=== PATIENT | male | born 1965 | race American Indian/Alaskan Native ===

== ENCOUNTER 2021-09-30 12:26 | Emergency (ER) | payer BC, SELFPAY ==
--- NOTE | 2021-09-30 13:30 | PC.NURSE ---
called X2 for triage at this time
== END 2021-09-30 21:24 | disposition left against medical advice (07) ==
PROVIDERS: Emergency Provider Emergency Medicine; PCP Physician Assistant
DX: R10.9 Unspecified abdominal pain (principal)

== ENCOUNTER 2021-12-10 16:07 | Emergency (ER) | payer BC, SELFPAY | END 2021-12-10 17:31 | disposition left against medical advice (07) | PROVIDERS: Emergency Provider Emergency Medicine | DX: M79.602 Pain in left arm (principal) ==

== ENCOUNTER 2022-01-22 20:05 | Emergency (ER) | payer BC, SELFPAY ==
[2022-01-22 20:07] VITALS: BP 116/75; PULSE 98; RESP 18; TEMP 36.6; O2SAT 95; BMI 24.7
== END 2022-01-23 00:04 | disposition left against medical advice (07) ==
PROVIDERS: Emergency Provider Emergency Medicine
DX: S51.851A Open bite of right forearm, initial encounter (principal); W54.0XXA Bitten by dog, initial encounter; Y93.9 Activity, unspecified; Y92.480 Sidewalk as the place of occurrence of the external cause; Y99.9 Unspecified external cause status
CPT/HCPCS: 99281

== ENCOUNTER 2022-01-23 10:46 | Emergency (ER) | payer BC, SELFPAY ==
[2022-01-23 11:19] VITALS: BP 118/79; PULSE 76; RESP 16; TEMP 36.3; O2SAT 98; BMI 24.7
--- NOTE | 2022-01-23 12:11 | ED_ITS ---
HPI - General Adult General Chief complaint: Animal Bite Stated complaint: dog bite Time Seen by Provider: 01/23/22 12:11 Source: patient Mode of arrival: ambulatory Limitations: no limitations History of Present Illness HPI narrative: Patient is a 56 year old male presenting to the emergency department today with a dog bite to his right forearm. Patient states that he was bit by his neighbors dog yesterday and doesn't know if the dog is up to date on his shots or not. States that he does not know when his last tetanus shot was. Patient denies any dizziness, lightheadedness, abdominal pain, nausea, vomiting, fever, chills, blurry vision, double vision, loss of vision, chest pain, difficulty breathing, shortness of breath, back pain, night sweats, pain with urination, increased urinary frequency, increased urinary urgency, blood in his urine or stool, syncope or a near syncopal episode, bowel incontinence, bladder incontinence, bowel retention, bladder retention, or any other complaints at this time. Onset (ago): day(s) (1) Location: right and upper extremity Radiation: non-radiation Severity: mild Severity scale (1-10): 1 Quality: dull Pain Consistency: constant Relieving factors: none Exacerbating factors: none Associated symptoms: denies other symptoms Treatments prior to arrival: none Related Data Previous Rx's Medication Instructions Recorded amoxicillin 875 mg-potassium 1 tab PO BID 7 days #14 tabs 01/23/22 clavulanate 125 mg tablet Allergies Allergy/AdvReac Type Severity Reaction Status Date / Time No Known Allergies Allergy Verified 01/22/22 20:07 [No Known Allergies*] Review of Systems Constitutional: Constitutional: Reports no additional constitutional complaints, Denies chills, Denies fever(s) and Denies night sweats Eyes: Eyes: Reports no additional eye complaints, Denies blurry vision, Denies change in vision, Denies diplopia, Denies eye discharge, Denies loss of vision and Denies eye pain ENT: Denies dizziness Cardiovascular: Cardiovascular: Reports no additional cardiovascular complaints, Denies chest pain, Denies lightheadedness, Denies Loss of Consciousness and Denies dyspnea Respiratory: Respiratory: Reports no additional respiratory complaints and Denies dyspnea Gastrointestinal: Gastrointestinal: Reports no additional gastrointestinal complaints, Denies abdominal pain, Denies melena, Denies hematochezia, Denies change in bowel habits and Denies change in stool character Genitourinary: Genitourinary: Reports no additional male genitourinary complaints, Denies hematuria, Denies oliguria, Denies difficulty urinating, Denies dysuria, Denies urinary frequency, Denies urinary hesitancy, Denies urinary incontinence and Denies urinary urgency Musculoskeletal: Musculoskeletal: Reports no additional musculoskeletal complaints, Denies numbness and Denies tingling Integumentary/Breasts: Comments: right forearm abrasion, no active bleeding Neurologic: Denies dizziness, Denies loss of vision, Denies numbness and Denies tingling Psychiatric: Psychiatric: Reports no additional psychiatric complaints Endocrine: Endocrine: Reports no additional endocrine complaints Hematologic/Lymphatic: Hematologic/Lymphatic: Reports no additional hematologic/lymphatic complaints Allergic/Immunologic: Allergic/Immunologic: Reports no additional allergic/immunologic complaints PMFSH Past Medical History Attestation statement: The following information was validated with the patient. Source: old records reviewed Social History Social History Advance Directives: Yes Advance Directives Information Provided: Yes Advance Directives on File: No Physical Exam ED Vital Signs: Vital Signs - 24 hr 01/23/22 11:19 Temperature 97.4 F Pulse Rate 76 Respiratory Rate 16 Blood Pressure 118/79 Pulse Oximetry 98 Oxygen Delivery Method Room Air BMI result Body Mass Index 24.7 Const General: cooperative, no acute distress, alert and awake Nutritional Appearance: well nourished Orientation/consciousness: patient oriented x3 Limitations: no limitations [facility] Head: Yes normal to inspection and Yes atraumatic Ears: hearing grossly normal bilaterally and external ears normal General nose exam: Normal external nose present, no nasal discharge noted and no epistaxis Face and sinus: Yes normal facial exam, No abrasion and No laceration Mouth: Normal oral and palatal mucosa present, no drooling and no muffled voice Eyes General: appearance normal, both eyes and all related structures Periorbital: periorbital findings normal Eyelids: Yes eyelids normal Conjunctivae: conjunctivae normal Pupils: Equal, round and reactive pupils present EOM: EOMs intact bilaterally Neck Neck: Yes normal visual inspection, Yes full ROM and Yes no lymphadenopathy Chest Chest palpation & inspection: normal inspection of the chest Resp Effort & Inspection: normal respiratory effort and able to speak in complete sentences Auscultation: clear to auscultation bilaterally Cardio Rate: regular rate Rhythm: regular rhythm GI Inspection: Yes normal to inspection Skin Other: small abrasions to the right dorsal forearm, no active bleeding, no gaping areas Neuro General: patient oriented x3 and moves all extremities Cranial nerves: Yes Equal, round and reactive pupils present Cognition (Neuro): normal cognition Motor exam (neuro): 5/5 motor strength present throughout Sensory Exam: Normal double simultaneous stimulation for sensation Coordination: [id number] test normal Extrem General: Yes full ROM and Yes capillary refill normal Psych Appearance: grossly normal Mental Status: mental status grossly normal Affect: normal affect Attitude: cooperative Thought process: Normal thought process present Thought content: Normal thought content present Insight: Good insight present (Psych) Medical Decision Making MDM Narrative Medical decision making narrative: Patient is a 56 year old male presenting to the emergency department today with a dog bite to the right forearm. Patient's physical exam showed a few abrasions to the right dorsal forearm with no active bleeding or gaping areas. I explained my physical exam findings to the patient. I answered all questions asked by the patient. Patient received a tetanus booster, rabies vaccination, and rabies immungloblin. I stressed the importance of the patient taking his medication as prescribed. I stressed the importance of the patient following up with his [facility] care provider. I stressed the importance of the patient returning to the emergency department immediately if his symptoms were to worsen or if he were to develop any dizziness, shortness of breath, difficulty breathing, chest pain, blurry vision, loss of vision, nausea, vomiting, abdominal pain, fever, chills, back pain, or any other complaints. Patient verbalized agreement and understanding with this treatment plan and discharge. Differential Diagnosis Differential Diagnosis: dog bite Medical Records Medical records reviewed: Yes I reviewed the patient's medical records. Discharge Plan Discharge Clinical Impression: Dog bite Patient Disposition: Home, Self-Care Instructions: Animal Bite (ED) Additional Instructions: Complete your rabies vaccination series as directed. Follow up with your primary care provider. Return to the emergency department immediately if your symptoms worsen or if you develop any dizziness, shortness of breath, difficulty breathing, chest pain, blurry vision, loss of vision, nausea, vomiting, abdominal pain, fever, chills, back pain, or any other complaints. Prescriptions: New amoxicillin-pot clavulanate 875-125 mg tablet 1 tab PO BID 7 Days Qty: 14 0RF Referrals: [facility] [place] [facility] [Provider Group] (Call to establish and follow up with a primary care provider. If you have a primary care provider, please call and follow up with them. ) [facility] [place] Primary Care, Joelle [Provider Group] (Call to establish and follow up with a primary care provider. If you have a primary care provider, please call and follow up with them. ) [facility] [place] Primary Care,Rose [Provider Group] (Call to establish and follow up with a primary care provider. If you have a primary care provider, please call and follow up with them. ) Stand Alone Forms: Work/School Release Print Language: Portuguese
[2022-01-23] MEDS: Diphth,Pertus(ACell),Tet Adult 0.5 ML SYRINGE IM (12:52)
[2022-01-23] MEDS: Rabies Vaccine (PCEC)/PF 1 ML VIAL IM (12:55)
[2022-01-23] MEDS: Rabies Immune Globulin/PF 900 UNIT/3 ML VIAL 1524.08 UNIT IM (12:59)
== END 2022-01-23 13:22 | disposition home or self-care (01) ==
PROVIDERS: Emergency Provider Emergency Medicine
DX: S50.871A Other superficial bite of right forearm, initial encounter (principal); S50.811A Abrasion of right forearm, initial encounter; M79.631 Pain in right forearm; W54.0XXA Bitten by dog, initial encounter; Y93.9 Activity, unspecified; Y92.9 Unspecified place or not applicable; Y99.9 Unspecified external cause status; Z20.3 Contact with and (suspected) exposure to rabies; Z29.14 Encounter for prophylactic rabies immune globulin; Z79.899 Other long term (current) drug therapy
CPT/HCPCS: 90375; 90471; 90472; 90675; 90715; 96372; 99283; 99284

== ENCOUNTER 2022-06-05 08:34 | Outpatient (REF) | payer BC, SELFPAY ==
[2022-06-05 09:17] LABS: Appearance Urine Clear; Color Urine Yellow; Glucose Urine UA Negative (Negative); Leukocyte Esterase Urine Negative (Negative); Nitrite Urine Negative (Negative); Specific Gravity - Urine 1.025 (1.005-1.025); UMIC TRIGGER UACC YES; Urine Blood Small (1+) (Negative); Urine Ketones Negative (Negative); Urine Protein Negative (Neg-Trace)
[2022-06-05 09:20] LABS: Bacteria Urine None Seen (None Seen); Hyaline Casts Urine 0-2 /LPF (0-2); Squamous Epithelial Cell Urine 0-2 /HPF (0-2); WBC Urine 0-5 /HPF (0-5)
[2022-06-05 10:12] LABS: Alanine Aminotransferase 22 U/L (0-40); Albumin Level 4.5 g/dL (3.5-5.0); Alkaline Phosphatase 64 U/L (39-117); Anion Gap 12 (12-20); Aspartate Amino Transferase 20 U/L (5-37); Bilirubin Total 0.3 mg/dL (0.0-1.0); Blood Urea Nitrogen 24 mg/dL (9-16); Calcium 9.2 mg/dL (8.4-10.2); Carbon Dioxide 26 mmol/L (22-29); Chloride 109 mmol/L (96-108); Cholesterol 174 mg/dL; Estimated Glomerular Filt Rate > 60; Glucose Fasting 106 mg/dL (60-99); HDL Cholesterol 60 mg/dL; LDL Cholesterol Calculated 107 mg/dl; Potassium 4.8 mmol/L (3.3-5.1); Prostate Specific Antigen Scr 2.35 ng/mL (<0.05-4.0); Sodium 142 mmol/L (135-145); TSH reflex Free T4 1.53 uIU/mL (0.32-4.0); Total Protein 7.5 g/dL (6.5-8.0); Triglycerides 36 mg/dL
== END 2022-06-05 08:35 | disposition home or self-care (01) ==
LOC: HO.LAB 08:34
PROVIDERS: PCP Physician Assistant; Visit Provider Physician Assistant
DX: R30.0 Dysuria (principal); N20.0 Calculus of kidney; Z13.1 Encounter for screening for diabetes mellitus; Z13.220 Encounter for screening for lipoid disorders; Z12.5 Encounter for screening for malignant neoplasm of prostate; Z13.29 Encounter for screening for other suspected endocrine disorder
CPT/HCPCS: 36415; 80053; 80061; 81001; 84153; 84443

== ENCOUNTER 2022-09-22 15:00 | Outpatient (REF) | payer BC, SELFPAY ==
[2022-09-22 16:25] LABS: Urine Cytology See Pathology rpt
== END 2022-09-22 15:01 | disposition home or self-care (01) ==
LOC: HO.LAB 15:00
PROVIDERS: PCP Physician Assistant; Visit Provider Nurse Practitioner Family
DX: R31.29 Other microscopic hematuria (principal); N20.0 Calculus of kidney
CPT/HCPCS: 88112

== ENCOUNTER 2022-10-01 15:49 | Outpatient (REF) | payer BC, SELFPAY ==
--- NOTE | ~2022-10-01 | US_ITS ---
EXAMINATION: US RETROPERITONEAL COMPLETE (RENAL) CLINICAL INFORMATION: Other microscopic hematuria. COMPARISON: Renal ultrasound 12/29/2019 and 09/26/2019. X-ray KUB 11/09/2019. CT abdomen and pelvis 03/15/2019. TECHNIQUE: Real-time imaging of the kidneys and bladder. FINDINGS: RIGHT KIDNEY: 10.3 x 5.4 x 5.3 cm (SAG x AP x TRV). The kidney is normal in size, contour, and echogenicity. Renal cortical thickness is normal. There are lower pole 3 and 5 mm nonobstructing echogenic calculi. No focal parenchymal lesions or hydronephrosis. LEFT KIDNEY: 10.4 x 5.3 x 5.0 cm (SAG x AP x TRV). The kidney is normal in size, contour, and echogenicity. Renal cortical thickness is normal. There are upper mid and lower pole echogenic foci seen consistent with calculi ranging in size from 4 to 7 mm. No focal parenchymal lesions or hydronephrosis. BLADDER: The bladder wall appeared focally thickened anteriorly. Right ureteral jet is demonstrated; left is not seen. Prevoid bladder volume is 241.9 mL. Postvoid bladder volume is 4.8 mL. ADDITIONAL FINDINGS: The prostate is enlarged at 45 mL. US/US retroperitoneal comp IMPRESSION: 1. Bilateral nonobstructing renal calculi. 2. Focal anterior bladder wall thickening. Cystoscopy with direct observation may be of value if this has not already been performed. 3. BPH with 45 mL prostate.
--- NOTE | ~2022-10-01 | US_ITS ---
EXAMINATION: US SCROTUM CLINICAL INFORMATION: Hydrocele, unspecified. COMPARISON: None available. TECHNIQUE: A sonogram of the scrotum was performed assessing morataya-scale appearance and color Doppler flow. Spectral Doppler analysis of the arterial and venous flow were performed in the testes bilaterally. FINDINGS: RIGHT: Right testicle measures 4.4 x 2.4 x 3.3 cm, volume 17.9 mL. A small appendix testis is noted. There is mild tubular ectasia of the rete testis. No focal testicular parenchymal lesions are visualized. Spectral Doppler analysis of the arterial and venous flow is normal in the right testis. Right epididymal head is enlarged and contains a 1.7 x 1.6 x 1.9 cm cyst. No right hydrocele or varicocele is seen. Right epididymal Doppler flow is normal. LEFT: Left testicle measures 4.4 x 2.7 x 2.9 cm, volume 17.9 mL. No focal testicular parenchymal lesions are visualized. Spectral Doppler analysis of the arterial and venous flow is normal in the left testis. Left epididymal head is enlarged and contains a 1.3 x 0.6 x 0.6 cm cyst. No left hydrocele is seen. Left epididymal Doppler flow is normal. Small left hydrocele is present which does not appear to increase in size with Valsalva. US/US scrotum IMPRESSION: 1. Bilateral epididymal cysts. 2. Small left hydrocele.
== END 2022-10-01 15:50 | disposition home or self-care (01) ==
LOC: HO.US 15:49
PROVIDERS: PCP Physician Assistant; Visit Provider Physician Assistant
DX: N43.3 Hydrocele, unspecified (principal); N20.0 Calculus of kidney; R31.29 Other microscopic hematuria
CPT/HCPCS: 76770; 76870

== ENCOUNTER 2022-10-31 16:14 | Outpatient (REF) | payer BC, SELFPAY ==
--- NOTE | ~2022-10-31 | US_ITS ---
EXAMINATION: US SCROTUM CLINICAL INFORMATION: Right hydrocele. COMPARISON: Ultrasound scrotum 10/01/2022. TECHNIQUE: A sonogram of the scrotum was performed assessing morataya-scale appearance and color Doppler flow. Spectral Doppler analysis of the arterial and venous flow were performed in the testes bilaterally. FINDINGS: RIGHT: Right testicle measures 4.3 x 2.1 x 3.5 cm, volume 16.4 mL. No focal testicular parenchymal lesions are visualized. Spectral Doppler analysis of the arterial and venous flow is normal in the right testis. Right epididymal head is remarkable for a 2.1 cm epididymal head cyst. No right hydrocele is seen. No varicocele. Right epididymal Doppler flow is normal. LEFT: Left testicle measures 4.9 x 1.9 x 2.8 cm, volume 13.4 mL. No focal testicular parenchymal lesions are visualized. Spectral Doppler analysis of the arterial and venous flow is normal in the left testis. Left epididymal head is remarkable for a 1.1 cm epididymal head cyst. Trace fluid within the left scrotal sac favored to be within physiologic limits of volume. No kaye hydrocele. No varicocele. Left epididymal Doppler flow is normal. US/US scrotum IMPRESSION: Trace fluid within the left scrotal sac favored to be within physiologic limits of volume. No kaye hydrocele. Incidentally noted bilateral epididymal head cysts.
== END 2022-10-31 16:15 | disposition home or self-care (01) ==
LOC: HO.US 16:14
PROVIDERS: PCP Physician Assistant; Visit Provider Nurse Practitioner Family
DX: N43.3 Hydrocele, unspecified (principal)
CPT/HCPCS: 76870

== ENCOUNTER → 2022-11-21 15:47 | Outpatient (BNVA) | payer BC, SELFPAY | PROVIDERS: PCP Physician Assistant; Visit Provider Nurse Practitioner Family ==

== ENCOUNTER 2023-05-19 15:58 | Outpatient (REF) | payer BC, SELFPAY ==
--- NOTE | ~2023-05-19 | US_ITS ---
EXAMINATION: US RETROPERITONEAL LIMITED (RENAL ONLY) CLINICAL INFORMATION: Calculus of kidney. COMPARISON: Ultrasound retroperitoneal complete 10/01/2022. Ultrasound retroperitoneal limited 12/29/2019. X-ray abdomen KUB 11/09/2019. CT abdomen and pelvis without contrast 03/15/2019. TECHNIQUE: Real-time imaging of the kidneys. Limited visualization due to bowel gas. FINDINGS: RIGHT KIDNEY: 9.8 x 5.3 x 5.0 cm (SAG x AP x TRV). Multiple echogenic renal foci, largest measured 0.4 cm midpole and 0.3 cm lower pole, characteristic of nonobstructive calculi. No hydronephrosis. Renal cortical thickness is normal. Limited visualization. LEFT KIDNEY: 10.2 x 4.9 x 4.3 cm (SAG x AP x TRV). Multiple echogenic renal foci, largest measured 0.6 cm midpole characteristic of nonobstructive calculi. No hydronephrosis. Renal cortical thickness is normal. Limited visualization. US/US renal BI IMPRESSION: Bilateral nephrolithiasis. No hydronephrosis.
== END 2023-05-19 15:59 | disposition home or self-care (01) ==
LOC: HO.US 15:58
PROVIDERS: PCP Physician Assistant; Visit Provider Nurse Practitioner Family
DX: N20.0 Calculus of kidney (principal)
CPT/HCPCS: 76775

== ENCOUNTER 2023-05-25 15:50 | Outpatient (AMB) | payer BC, SELFPAY ==
--- NOTE | 2023-05-25 15:50 | A.OFFVIS_ITS ---
Intake Intake Visit Reasons: 6m follow up/US(set) Intake Note: Patient is present for follow up kidney stone/ ultrasound (imaging 05/19/23) Urology Medications: none Blood Thinner: none Tester Rocket Engine Required: No Accompanied by: Self / Same As Patient Allergies No Known Allergies [No Known Allergies*] Allergy (Verified 05/25/23 20:07) Medication List - Last Reconciled 05/25/23 by ALESHA Prescott No Known Home Meds HPI HPI Comments History of Present Illness Details Fahad is a pleasant 58-year-old male patient of Dr. Sheffield. He presents to the office today for follow-up of his nephrolithiasis. In discussion with the patient today reports to be doing and feeling well. Recent renal ultrasound results reviewed with the patient today. Right kidney with multiple echogenic renal foci, largest measuring 0.4 cm mid pole and 0.3 cm lower pole, characteristics of nonobstructing calculi. No hydronephrosis. Left kidney with multiple echogenic renal foci, largest measuring 0.6 cm mid pole characteristic of nonobstructive calculi. No hydronephrosis. Discussed at length nephrolithiasis. Discussed surveillance monitoring versus surgical intervention regarding nephrolithiasis. Patient currently denies any bothersome urinary issues or concerns. When asked patient reports noncompliance with vitamin B6 daily as well as not drinking enough water daily however he plans to. He denies urinary urgency, urinary frequency, change in urinary stream, incontinence, foul-smelling urine, dysuria, hematuria, fever, and or chills. In office urinalysis with microscopic hematuria likely related to nephrolithiasis however discussed further microscopic hematuria workup with in office cystoscopy however patient declines at this time. Previous urine cytology 10/09 negative for malignant cells. Patient discusses his upcoming wedding next year. He discusses feeling low libido and fatigue. Will draw testosterone free and total for further assessment evaluation. Will continue with surveillance monitoring of nephrolithiasis. Discussed importance of drinking plenty of water daily. [facility] Medical History H/O nephrolithotomy with removal of calculi Surgical History H/O hand surgery Family History Father Cancer Social History Housing: House Alcohol intake: former Patient Tobacco Use Status: Never used Tobacco e-Cigarette/Vaping Use: Never Used service: No Current occupational status: employed Cognitive needs: No Hearing needs: No Vision needs: No Review of Systems Const All systems reviewed & are unremarkable except as noted in HPI and below Reports as per HPI Eyes Reports no additional complaints ENT Details: Hard of hearing patient reports he is getting worked up with ENT and will likely be getting hearing aids. Reports no additional complaints and Denies nasal congestion Card Reports no additional complaints Resp Reports no additional complaints GI Reports no additional complaints Reports as per HPI Musc Reports no additional complaints Neuro Reports no additional complaints Psych Reports no additional complaints Endo Reports no additional complaints Chau/Lymph Reports no additional complaints Aller/Immun Reports no additional complaints Physical Exam Const General: cooperative, healthy appearing, comfortable, no acute distress, well developed, alert and awake Orientation/consciousness: patient oriented x3 Limitations: no limitations HEENT Head: Yes normal to inspection, Yes normocephalic and Yes atraumatic Ears: hearing grossly normal bilaterally Eyes General: appearance normal, both eyes and all related structures Neck Neck: Yes normal visual inspection and Yes trachea midline Chest Chest palpation & inspection: normal inspection of the chest Resp Effort & Inspection: normal respiratory effort and able to speak in complete sentences Cardio Rate: regular rate GI Inspection: Yes normal to inspection Rectal Exam - Male: Yes deferred General: Yes no CVA tenderness Back/Spine/Pelvis Back: no CVA tenderness Skin General skin exam: no rashes or lesions noted Neuro General: patient oriented x3 Extrem General: Yes normal to inspection Psych Appearance: grossly normal and well kempt Mental Status: mental status grossly normal Speech and movement: Normal speech and movement present and Clear speech present Affect: normal affect Attitude: cooperative Thought process: Normal thought process present Thought content: Normal thought content present Insight: Good insight present (Psych) Judgement: Good judgement present (Psych) Results AMB Urinalysis, Automated UA Leukoctes 0 Rickie/uL Last Edit by Faby Ring on 05/25/23 16:00 UA Nitrite Negative Last Edit by Faby Ring on 05/25/23 16:00 UA Urobilinogen 0.2 mg/dL Last Edit by Faby Ring on 05/25/23 16:00 UA Protein 0 mg/dL Last Edit by Faby Ring on 05/25/23 16:00 UA pH 6.0 Last Edit by Faby Ring on 05/25/23 16:00 UA Blood 80 David/uL Last Edit by Faby Ring on 05/25/23 16:00 UA Specific [place] 1.015 Last Edit by Faby Ring on 05/25/23 16:00 UA Ketone Negative Last Edit by Faby Ring on 05/25/23 16:00 UA Bilirubin 0 mg/dL Last Edit by Faby Ring on 05/25/23 16:00 UA Glucose 0 mg/dL Last Edit by Faby Ring on 05/25/23 16:00 Results Reviewed Results Reviewed: Laboratory Last Values Urine pH (Auto) 6.0 05/25/23 15:51 Specific [place] (Auto) 1.015 05/25/23 15:51 Urine Protein (Auto) 0 mg/dL 05/25/23 15:51 Glucose (UA)(Auto) 0 mg/dL 05/25/23 15:51 Urine Ketones (Auto) Negative 05/25/23 15:51 Urine Blood (Auto) 80 David/uL 05/25/23 15:51 Urine Nitrite (Auto) Negative 05/25/23 15:51 Urine Bilirubin (Auto) 0 mg/dL 05/25/23 15:51 Urine Urobilinogen (Auto) 0.2 mg/dL 05/25/23 15:51 Leukocyte Esterase (Auto) 0 Rickie/uL 05/25/23 15:51 Date of Service: 05/19/23 EXAMINATION: US RETROPERITONEAL LIMITED (RENAL ONLY) FINDINGS: RIGHT KIDNEY: 9.8 x 5.3 x 5.0 cm (SAG x AP x TRV). Multiple echogenic renal foci, largest measured 0.4 cm midpole and 0.3 cm lower pole, characteristic of nonobstructive calculi. No hydronephrosis. Renal cortical thickness is normal. Limited visualization. LEFT KIDNEY: 10.2 x 4.9 x 4.3 cm (SAG x AP x TRV). Multiple echogenic renal foci, largest measured 0.6 cm midpole characteristic of nonobstructive calculi. No hydronephrosis. Renal cortical thickness is normal. Limited visualization. IMPRESSION: Bilateral nephrolithiasis. No hydronephrosis. Assessment & Plan Assessment & Plan (1) Fatigue: Code(s): R53.83 - Other fatigue (2) Low libido: Code(s): R68.82 - Decreased libido (3) Nephrolithiasis: Code(s): N20.0 - Calculus of kidney Plan In office urinalysis results reviewed with the patient today; as noted above; will send for urine cytology. Recent renal ultrasound results reviewed with the patient today; as noted above. Discussed at length surveillance monitoring versus surgical intervention of bilateral nonobstructing renal calculi. Patient denies any bothersome urinary issues at this time. Patient reports to be happy with current voiding parameters. Will obtain testosterone free and total for further assessment evaluation. Continue vitamin B6 as discussed and prescribed. Continue adding 1 oz of lemon juice to water daily. Discussed, educated, encouraged on the importance of drinking plenty of water daily. Will obtain CT KUB in 3 months for further assessment evaluation Follow-up in 2-4 weeks with lab to be completed prior; or sooner with any issues, concerns, and or questions. Orders: Orders Urine Cytology Today R31.29 - Other microscopic hematuria CT kidney stone 3 Months N20.0 - Calculus of kidney AMB Urinalysis Automated Today Z13.9 - Encounter for screening, unspecified Testosterone, Free/Total Today R53.83 - Other fatigue, R68.82 - Decreased libido Patient Instructions: The patient had an opportunity to ask questions regarding the treatment plan. All questions were answered. Physical exam, labs, and imaging were discussed and reviewed in detail. As well as risks, benefits, and discussion of treatment choices. No major barriers to understanding were identified. The patient expressed understanding and agreement with the above treatment plan. The patient was made aware they should contact our office by phone for worsening of their current condition, the appearance of new symptoms, or with any questions or concerns. Compliance is encouraged with any medications and follow up testing that is ordered. It is a privilege to be allowed the opportunity to participate in? your urological care.? Again, if you have any questions or concerns If you have any questions or concerns please do not hesitate to contact me. The office is [phone]. This note is constructed using voice recognition software. While every effort has been made to ensure accuracy roll forger errors may have been included. Yours sincerely, ALYX Prescott-EMI Coding Level of Care Code Est Pt Level 3 (65743) Diagnoses Fatigue R53.83 Low libido R68.82 Nephrolithiasis N20.0
== END 2023-05-25 16:25 | disposition home or self-care (01) ==
PROVIDERS: Visit Provider Nurse Practitioner Family
DX: R53.83 Other fatigue (principal); R68.82 Decreased libido; N20.0 Calculus of kidney; Z13.9 Encounter for screening, unspecified
CPT/HCPCS: 99213

== ENCOUNTER 2023-05-25 15:50 | Outpatient (REF) | payer BC, SELFPAY ==
[2023-05-25 17:18] LABS: Urine Cytology See Pathology rpt
== END 2023-05-25 15:51 | disposition home or self-care (01) ==
LOC: HO.LNP 15:50
PROVIDERS: Visit Provider Nurse Practitioner Family
DX: R31.29 Other microscopic hematuria (principal); R53.83 Other fatigue; R68.82 Decreased libido; N20.0 Calculus of kidney
CPT/HCPCS: 81003; 88112

== ENCOUNTER 2023-06-08 15:46 | Outpatient (AMB) | payer BC, MEDICAID, SELFPAY ==
[2023-06-08 16:05] VITALS: BP 126/86; PULSE 78; O2SAT 97; BMI 26.3
--- NOTE | 2023-06-08 16:05 | MHC.PC.OV ---
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 Accompanied by: Self / Same As Patient Allergies No Known Allergies [No Known Allergies*] Allergy (Verified 06/08/23 16:40) Medication List - Last Reconciled 06/08/23 by Mateus Sheffield PA-C No Known Home Meds Tobacco use date assessed: 06/08/23 Dental Screening Dental Screen Date: 06/08/23 Did you have a dental visit in the last 12 months?: Yes Did you have a dental problem in the last 6 months where you did not have access to dental care?: No Was dental information given to patient?: Patient has dentist HPI Annual Exam HPI Details Patient is a 58-year-old male here today for routine annual physical. Pateint has a pmhx significant for SNHL, nephrloithiasis. Has recently gotten hearing exam recently and report he does needs amplification. He reports they are still considerations for a full cochlear implant. Concern--> reports having right heel and plantar foot pain, pain is worse with 1st steps in the morning. Has been trying to changes footwear though has not been helpful. Has not used any anti-inflammatories or conservative measures at this time. .. 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 He does report brief episodes of his ears popping and him being able to hear. Has not seen ENT specialist. His hearing is causing him some disruption in his social life. He is not interested in getting a hearing exam because he believes is more about his ear ringing causing him decrease hearing. Microscopic hematuria: He has establish care with a urologist. Has gotten recent kidney ultrasound showing decrease kidney stones. Continues to try to stay well hydrated. Has a long history of nephrolithiasis which is likely the cause of his microscopic hematuria, he does have history surgical removal of nephrolithiasis, .. Colonoscopy: Has had a colonoscopy at age 51 Reports normal findings repeat in 10 years. .. 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 1. Little interest or pleasure in doing things: not at all 2. Feeling down, depressed, or hopeless: not at all 3. Trouble falling or staying asleep, or sleeping too much: not at all 4. Feeling tired or having little energy: not at all 5. Poor appetite or overeating: not at all 6. Feeling bad about yourself - or that you are a failure or have let yourself or your family down: not at all 7. Trouble concentrating on things, such as reading the newspaper or watching television: not at all 8. Moving or speaking so slowly that other people could have noticed. Or the opposite - being so fidgety or restless that you have been moving around a lot more than usual: not at all 9. Thoughts that you would be better off or of hurting yourself in some way: not at all Total score: 0 16775 - PHQ-9 Billing: Yes Source: Developed by Drs. Kodak Caballero, Jamee Oh, Tavo Cabezas and colleagues, with an educational meliton from [employer]. Thrive Questionnaire Date Thrive assessed: 03/11/22 I am a: Patient What is your living situation today?: I choose not to answer this question Within the past 12 months, did the food you bought not last and you didn't have the money to get more?: Never true Within the past 12 months, did you worry whether your food would run out before you got money to buy more?: Never true Do you have trouble paying for medicines?: No Do you have trouble getting transportation to medical appointments?: No Do you have trouble paying your heating and electricity bill?: No Do you have trouble taking care of your child, family member or friend?: No Do you have trouble with day-to-day activities such as bathing, preparing meals, shopping, managing finances, etc.?: No Are you currently unemployed and looking for a job?: No Are you interested in more education?: No Please select the resources that you would like help with: None Currently or been in a relationship where the following occur: no concerns reported AUDIT C Alcohol Use Questionnaire (AUDIT-C) 1. How often do you have a drink containing alcohol?: Never 3. How often do you have six or more drinks on one occasion?: Never Total Score: 0 JOYCE-7 AMB Questionnaire JOYCE-7 Date JOYCE - 7 assessed: 06/08/23 Feeling nervous, anxious, or on edge: 0 = Not at all Not being able to stop or control worryin = Not at all Worrying too much about different things: 0 = Not at all Trouble relaxin = Not at all Being so restless that it is hard to sit still: 0 = Not at all Becoming easily annoyed or irritable: 0 = Not at all Feeling afraid as if something awful might happen: 0 = Not at all Total JOYCE-7 score (0-4 normal; 5-9 mild; 10-14 moderate; 15-21 severe): 0 Source: Developed by Drs. Kodak Caballero, Jamee Oh, Tavo Cabezas and colleagues, with an educational meliton from [employer]. JOYCE-7 Assessment Billing JOYCE-7 Assessment Tool: JOYCE-7 Assessment 75814 Review of Systems Const Denies body aches, Denies chills, Denies excessive sweating, Denies fatigue, Denies fever(s) and Denies headache(s) Eyes Denies blurry vision ENT Denies dysphagia, Denies vertigo, Denies dizziness, Denies headache(s), Denies hearing loss and Denies tinnitus Card Denies chest pain, Denies chest pain with activity, Denies syncope, Denies irregular heart rhythm and Denies dyspnea Resp Denies chest congestion, Denies cough, Denies hemoptysis, Denies dyspnea and Denies wheezing GI Denies abdominal pain, Denies melena, Denies hematochezia, Denies coffee ground emesis, Denies dysphagia, Denies diarrhea, Denies nausea and Denies vomiting Denies difficulty urinating, Denies dysuria, Denies urinary frequency, Denies urinary hesitancy and Denies urinary urgency Musc Denies arthralgias, Denies limited range of motion, Denies muscle cramps and Denies muscle weakness Skin/Breast Denies rash and Denies skin ulcer Neuro Denies Abnormal speech present, Denies confusion, Denies vertigo, Denies dizziness, Denies syncope, Denies headache(s), Denies memory loss and Denies seizure-like activity Psych Denies anxiety, Denies confusion, Denies depression, Denies memory loss, Denies panic attacks and Denies paranoia Endo Denies excessive sweating, Denies fatigue, Denies flushing, Denies polydipsia and Denies polyuria Aller/Immun Denies wheezing Physical exam (Primary Care) Vital Signs: Last Vital Signs Pulse 78 06/08/23 16:05 BP 126/86 06/08/23 16:05 Pulse Ox 97 06/08/23 16:05 Oxygen Delivery Method Room Air 06/08/23 16:05 BMI result Body Mass Index 26.3 Tobacco/Smoking Status: Tobacco use Status Tobacco use date assessed 06/08/23 06/08/23 16:10 Patient Tobacco Use Status Never used Tobacco 06/08/23 16:45 e-Cigarette/Vaping Use Never Used 06/08/23 16:45 PHQ-9: PHQ-9 Score PHQ-9: Total score 0 06/08/23 16:47 Thrive Assessment: Date of Thrive Assessment Date Thrive assessed 03/11/22 06/08/23 16:05 Currently or been in a relationship where the following occur: no concerns reported Const General: cooperative, comfortable, no acute distress, alert and awake; No confusion Orientation/consciousness: oriented to person, oriented to place, patient oriented x3 and No confusion HENMT Head: Yes normocephalic Ears: external ears normal and TM's normal bilaterally Face and sinus: No sinus tenderness Mouth: Normal oral and palatal mucosa present and tongue normal Teeth and gingiva: dentition normal and gingiva normal Throat: Yes posterior oropharynx normal, Yes tonsils normal and Yes uvula midline Eyes Conjunctivae: conjunctivae normal Sclerae: sclerae normal Pupils: Equal, round and reactive pupils present EOM: EOMs intact bilaterally Direct Ophthalmoscopy: No no photophobia Neck Neck: Yes no lymphadenopathy, No tender and Yes no JVD Thyroid: Thyroid normal Carotids: no bruits Chest Chest palpation & inspection: no tenderness Resp Effort & Inspection: normal respiratory effort, no audible wheezes, not labored and no stridor Auscultation: no crackles, no rales, no rhonchi and no wheezes Cardio Jugular venous distension: no JVD Rate: regular rate, not bradycardic and not tachycardic Rhythm: regular rhythm Bruits: no carotid bruits Peripheral pulses: Peripheral pulses 2+ throughout GI Inspection: Yes normal to inspection, No abdominal wall ecchymosis and No visible herniation Palpation (GI): Soft to palpation, nontender, no guarding, not rigid and No hepatosplenomegaly present Auscultation: normoactive bowel sounds General: Yes no CVA tenderness Back/Spine/Pelvis Back: no CVA tenderness and No back tenderness Cervical Spine: cervical ROM normal Thoracic/Lumbar Spine: thoracic and lumbar spine normal to inspection, straight leg raise negative bilaterally, No thoraco-lumbar ROM limited and No lumbar spinal tenderness Skin Lesions: no lesions Rashes: no rashes Wounds: no wounds Neuro General: oriented to person, oriented to place, patient oriented x3, CN's II-XI intact bilaterally and No confusion Cranial nerves: Yes Equal, round and reactive pupils present and Yes Normal accommodation reflex present Cognition (Neuro): normal cognition Speech: No Abnormal speech present Gait exam (Neuro): Normal gait present Motor exam (neuro): 5/5 motor strength present throughout Extrem Right upper extremity: full ROM; no cyanosis Left upper extremity: full ROM; no cyanosis Right lower extremity: no edema Left lower extremity: no edema Psych Appearance: grossly normal Mental Status: mental status grossly normal Affect: normal affect Attitude: cooperative Thought process: Normal thought process present Assessment and Plan Assessment & Plan (1) Annual physical exam: Code(s): Z00.00 - Encounter for general adult medical examination without abnormal findings (2) Nephrolithiasis: Code(s): N20.0 - Calculus of kidney Plan: Has establish with Urology. Kidney stones much better on most recent ultrasound of kidneys. Now on surveillance ultrasounds. (3) Microscopic hematuria: Code(s): R31.29 - Other microscopic hematuria Plan: Likely secondary to his nephrolithiasis. Continues to follow urology. (4) Sensorineural hearing loss (SNHL) of both ears: Code(s): H90.3 - Sensorineural hearing loss, bilateral Plan: Continues to have sensorineural hearing loss in both ears. Recently had hearing test and was told he may need hearing aids. (5) Plantar fasciitis: Code(s): M72.2 - Plantar fascial fibromatosis Plan: Patient has signs symptoms consistent with plantar fasciitis. Advised on conservative treatment such as cool compress, stretches and anti-inflammatories. Will refer to Podiatry for evaluation of possible injections if needed. (6) Tinnitus: Code(s): H93.19 - Tinnitus, unspecified ear Qualifiers: Laterality: bilateral Qualified Code(s): H93.13 - Tinnitus, bilateral Plan: Does have bilateral hearing loss, he does report tinnitus which is main cause of hearing loss. He reports this has been going on for many years now. 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 Interestingly enough he does report his ears popping from time to time and gaining full hearing at those times. He is interested in establishing with an ENT. Will try for CT his auditory canals to evaluate for any masses Orders: Orders Prostate Specific Antigen Scr 06/08/23 Z12.5 - Encounter for screening for malignant neoplasm of prostate, Z13.1 - Encounter for screening for diabetes mellitus CT internal auditory canals BI 06/08/23 H90.3 - Sensorineural hearing loss, bilateral, H93.19 - Tinnitus, unspecified ear Comprehensive [place]. Panel Fast 06/08/23 Z13.1 - Encounter for screening for diabetes mellitus Referrals Ear/Nose/Throat Referral H90.3 - Sensorineural hearing loss, bilateral, H93.19 - Tinnitus, unspecified ear Podiatry Referral M72.2 - Plantar fascial fibromatosis Medications: New prednisone Take 3 tablets x2 days, 2 tablets x2 days, 1 tablet x2 days 10 mg PO DIRECTED 6 days 12 tabs 0RF M72.2 - Plantar fascial fibromatosis Coding Level of Care Code Est Pt Prev Care 40-64y(10996) Diagnoses Annual physical exam Z00.00 Nephrolithiasis N20.0 Microscopic hematuria R31.29 Sensorineural hearing loss (SNHL) of both ears H90.3 Plantar fasciitis M72.2 Tinnitus of both ears H93.13 Laterality: bilateral Additional Codes JOYCE-7 Assessment Billing - JOYCE-7 Assessment Tool: JOYCE-7 Assessment 52747 ([id number])
== END 2023-06-08 17:00 | disposition home or self-care (01) ==
PROVIDERS: Visit Provider Physician Assistant
DX: Z00.00 Encounter for general adult medical examination without abnormal findings (principal); N20.0 Calculus of kidney; R31.29 Other microscopic hematuria; H90.3 Sensorineural hearing loss, bilateral; M72.2 Plantar fascial fibromatosis; H93.13 Tinnitus, bilateral
CPT/HCPCS: 99396

== ENCOUNTER 2023-06-20 07:53 | Outpatient (REF) | payer BC, SELFPAY ==
[2023-06-20 08:38] LABS: Urine Cytology See Pathology rpt
[2023-06-20 08:58] LABS: Alanine Aminotransferase 21 U/L (0-40); Albumin Level 4.1 g/dL (3.5-5.0); Alkaline Phosphatase 61 U/L (39-117); Anion Gap 11 (12-20); Aspartate Amino Transferase 17 U/L (5-37); Bilirubin Total 0.3 mg/dL (0.0-1.0); Blood Urea Nitrogen 25 mg/dL (9-16); Calcium 8.9 mg/dL (8.4-10.2); Carbon Dioxide 26 mmol/L (22-29); Chloride 110 mmol/L (96-108); Estimated Glomerular Filt Rate > 60; Glucose Fasting 106 mg/dL (60-99); Potassium 4.9 mmol/L (3.3-5.1); Sodium 142 mmol/L (135-145); Total Protein 7.3 g/dL (6.5-8.0)
[2023-06-20 09:17] LABS: Prostate Specific Antigen Scr 2.57 ng/mL (<0.05-4.0)
[2023-06-24 19:14] LABS: Testosterone, Free 80.1 pg/mL (35.0-155.0); Testosterone, Total 646 ng/dL (250-1100)
== END 2023-06-20 07:54 | disposition home or self-care (01) ==
LOC: HO.LAB 07:53
PROVIDERS: PCP Physician Assistant; Referring Provider Physician Assistant; Visit Provider Nurse Practitioner Family
DX: Z12.5 Encounter for screening for malignant neoplasm of prostate (principal); Z13.1 Encounter for screening for diabetes mellitus; R68.82 Decreased libido; R53.83 Other fatigue; R31.29 Other microscopic hematuria
CPT/HCPCS: 36415; 80053; 84153; 84402; 84403; 88112

== ENCOUNTER 2023-07-06 15:33 | Outpatient (AMB) | payer BC, SELFPAY ==
--- NOTE | 2023-07-06 15:33 | A.OFFVIS_ITS ---
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 Sheffield. He presents to the office today for follow-up. Of note, patient was seen approximately 1 month ago at which time testosterone and PSA were ordered for further assessment and evaluation as patient had been reporting low libido and fatigue. These results were reviewed with the patient today. 07/11--testosterone 646 07/11--PSA 2.6, 06/10--2.4 Discussed at length borderline elevated PSA given patient's age. However, retroperitoneal ultrasound 10/09 noting mildly enlarged prostate. Discussed at length potential causes for borderline elevated PSA. Discussed further workup versus surveillance monitoring; discussed risks and benefits of surveillance monitoring verses further workup. In discussion with the patient today reports to be doing and feeling well. Discussed at length potential other causes for low libido and fatigue. Discussed at length lifestyle modifications to assist with these symptoms. Patient with a history of nephrolithiasis. Previous workup has included a renal ultrasound noting right kidney with multiple echogenic renal foci, largest measuring 0.4 cm mid pole and 0.3 cm lower pole, characteristics of nonobstructing calculi. No hydronephrosis. Left kidney with multiple echogenic renal foci, largest measuring 0.6 cm mid pole characteristic of nonobstructive calculi. No hydronephrosis. Discussed at length nephrolithiasis. Discussed surveillance monitoring versus surgical intervention regarding nephrolithiasis. Patient currently denies any bothersome urinary issues or concerns. When asked patient reports noncompliance with vitamin B6 daily and reports to have increased his daily water intake. He currently denies any bothersome urinary issues or concerns. He denies urinary urgency, urinary frequency, change in urinary stream, incontinence, foul-smelling urine, dysuria, hematuria, fever, and or chills. Will continue with surveillance monitoring of nephrolithiasis. Discussed importance of drinking plenty of water daily. 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 Reports no additional complaints and Denies nasal congestion Card Reports no additional complaints Resp Reports no additional complaints GI Reports no additional complaints Reports as per HPI Musc Reports no additional complaints Neuro Reports no additional complaints Psych Reports no additional complaints Endo Reports no additional complaints Chau/Lymph Reports no additional complaints Aller/Immun Reports no additional complaints Physical Exam Const General: cooperative Resp Effort & Inspection: able to speak in complete sentences Psych Speech and movement: Clear speech present Attitude: cooperative Thought content: Normal thought content present Insight: Fair insight present (Psych) Judgement: Fair judgement present (Psych) Assessment & Plan Assessment & Plan (1) Elevated PSA: Code(s): R97.20 - Elevated prostate specific antigen [PSA] (2) Nephrolithiasis: Code(s): N20.0 - Calculus of kidney (3) Low libido: Code(s): R68.82 - Decreased libido (4) Fatigue: Code(s): R53.83 - Other fatigue Plan Recent testosterone and PSA results reviewed with the patient today; as noted above. Discussed at length borderline elevated PSA given patient's age; discussed surveillance monitoring versus further workup; discussed risks and benefits of these interventions at length. Will continue with surveillance monitoring of longstanding history of nephrolithiasis as well as PSA Patient currently denies any bothersome urinary issues or concerns at this time. He reports to be happy with current voiding parameters Continue vitamin B6 as discussed and prescribed. Educated, encouraged, and stressed the importance of drinking plenty of water daily. Continue adding 1 oz of lemon juice to water daily. Discussed lifestyle modifications to assist with low libido and fatigue. Will obtain PSA in 4 months. Follow-up in 4 months with labs to be completed prior; or sooner with any issues, concerns, and or questions Orders: Orders Prostate Specific Antigen 4 Months R97.20 - Elevated prostate specific antigen [PSA] Patient Instructions: The patient had an opportunity to ask questions regarding the treatment plan. All questions were answered. Physical exam, labs, and imaging were discussed and reviewed in detail. As well as risks, benefits, and discussion of treatment choices. No major barriers to understanding were identified. The patient expressed understanding and agreement with the above treatment plan. The patient was made aware they should contact our office by phone for worsening of their current condition, the appearance of new symptoms, or with any questions or concerns. Compliance is encouraged with any medications and follow up testing that is ordered. It is a privilege to be allowed the opportunity to participate in? your urological care.? Again, if you have any questions or concerns If you have any questions or concerns please do not hesitate to contact me. The office is [phone]. This note is constructed using voice recognition software. While every effort has been made to ensure accuracy psychology teacher errors may have been included. Yours sincerely, Marlene Patel [facility] Telehealth Telehealth Location of provider rendering services: practice address Location of patient: address on file Patient Identification confirmed using: Name, : Yes Telehealth method: voice only Patient verbally consented to treatment: Yes Patient verbally consented to billing insurance company: Yes Patient informed of any privacy concerns related to visit: Yes Minutes spent on Phone/Video with Pt.: 20 Coding Level of Care Code Tele Est Pt Level 3 (47830) Diagnoses Elevated PSA R97.20 Nephrolithiasis N20.0 Low libido R68.82 Fatigue R53.83 Time Spent (min) 20
== END 2023-07-06 16:14 | disposition home or self-care (01) ==
LOC: HO.HUSH 15:33
PROVIDERS: PCP Physician Assistant; Visit Provider Nurse Practitioner Family
DX: R97.20 Elevated prostate specific antigen [PSA] (principal); N20.0 Calculus of kidney; R68.82 Decreased libido; R53.83 Other fatigue
CPT/HCPCS: 99442

== ENCOUNTER → 2023-07-06 15:33 | Outpatient (BNVA) | payer BC, SELFPAY | PROVIDERS: PCP Physician Assistant; Visit Provider Nurse Practitioner Family ==

== ENCOUNTER 2024-04-15 18:48 | Emergency (ER) | payer BC, SELFPAY ==
--- NOTE | 2024-04-15 | ECG_ITS ---
Test Reason : cp Blood Pressure : / mmHG Vent. Rate : 061 BPM Atrial Rate : 061 BPM P-R Int : 110 ms QRS Dur : 088 ms QT Int : 392 ms P-R-T Axes : 078 069 042 degrees QTc Int : 394 ms Sinus rhythm with short OR Otherwise normal ECG No previous ECGs available Referred By: Generic ED Physician Electronically Signed By:ADEOLA SIGALA
[2024-04-15 19:06] VITALS: BP 138/88; PULSE 60; RESP 20; TEMP 36.6; O2SAT 100; BMI 25.8
--- NOTE | 2024-04-15 19:06 | ED.ABDPAIN ---
HPI - Abdominal Pain General Chief Complaint: General Medical Stated Complaint: Vomiting, back pain Related Data Previous Rx's ?Medication ?Instructions ?Recorded cyclobenzaprine 10 mg tablet 10 mg PO Q8H PRN muscle spasm #15 04/24/24 tabs ibuprofen 600 mg tablet 600 mg PO Q6H PRN pain #30 tabs 04/24/24 Allergies Allergy/AdvReac Type Severity Reaction Status Date / Time No Known Allergies Allergy Verified 04/24/24 07:12 [No Known Allergies*] [facility] Past Medical History Medical History H/O nephrolithotomy with removal of calculi Surgical History H/O hand surgery Family History Family History Father Cancer Lung cancer Mother ESRD (end stage renal disease) Social History Social History Housing: House Alcohol intake: former Patient Tobacco Use Status: Never used Tobacco Smoked in Last 30 Days: No e-Cigarette/Vaping Use: Never Used Use of substances other than those prescribed or required for medical reasons: No Advance Directives: No Advance Directives Information Provided: No service: No Current occupational status: employed 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 Full HPI, ROS and PE to be performed by primary ED provider. 58 yo M w/ PMH of nephorlithiasis, blurred vision, hydrocele presenting to the ED c/o left sided flank and abdomen pain. Patient reports that pain has been worsening in severity over the past day. Endorses blurry vision, diaphoresis, nausea, vomiting. Patient has a history of kidney stones and states that this feels worse than previous kidney stone episode. Denies burning during urination, hematuria. PE: Plan: Medical Decision Making Lab Data 04/15/24 19:06 04/15/24 19:06 Labs: Lab Results 04/15/24 04/15/24 Range/Units 19:06 19:56 WBC 9.0 (4.8-10.8) X10*3/uL RBC 4.96 (4.60-5.80) X10*6/uL Hgb 13.4 L (14.0-18.0) g/dl Hct 41.1 L (42.0-52.0) % MCV 82.9 (80.0-98.0) fL MCH 27.0 (27.0-33.0) pg MCHC 32.6 (31.0-36.0) g/dl RDW 14.6 (11.0-16.0) % Plt Count 190 (160-400) X10*3/uL MPV 10.6 (9.4-12.4) fL Immature Gran % (Auto) 0.2 (0.0-0.4) % Neut % (Auto) 65.9 (45-73) % Lymph % (Auto) 22.6 (20-40) % [place] % (Auto) 10.5 (2-11) % Eos % (Auto) 0.6 (0-4) % Baso % (Auto) 0.2 (0-2) % Lymph # (Auto) 2.0 (1.2-4.9) X10*3/uL [place] # (Auto) 0.9 (0.1-1.2) X10*3/uL Eos # (Auto) 0.1 (0.0-0.4) X10*3/uL Baso # (Auto) 0.0 (0.0-0.2) X10*3/uL Abs Immat Gran (auto) 0.02 (0.00-0.03) X10*3/uL Absolute Neuts (auto) 5.9 (2.0-8.3) x10*3/uL Absolute Nucleated RBC 0.000 (0.0-0.012) X10*3/uL Nucleated RBC % (auto) 0.0 (0.0-0.2) /100WBC Sodium 138 (135-145) mmol/L Potassium 3.6 (3.3-5.1) mmol/L Chloride 106 (96-108) mmol/L Carbon Dioxide 22 (22-29) mmol/L Anion Gap 14 (12-20) BUN 18 H (9-16) mg/dL Creatinine 1.13 (0.5-1.4) mg/dL Estim Creat Clear Calc 69.7 Estimated GFR > 60 Random Glucose 129 H (60-115) mg/dL Calcium 8.5 (8.4-10.2) mg/dL Magnesium 2.0 (1.6-2.6) mg/dL Troponin I High Sens < 2.7 (<3.5-35.0) ng/L Lipase 24 (8-78) U/L Urine Color Yellow Urine Appearance Clear Urine pH 5.5 (5.0-9.0) Ur Specific [place] 1.010 (1.005-1.025) Urine Protein Negative (Neg-Trace) mg/dL Urine Glucose (UA) Negative (Negative) mg/dL Urine Ketones Negative (Negative) mg/dL Urine Blood Large (3+) H (Negative) Urine Nitrite Negative (Negative) Ur Leukocyte Esterase Negative (Negative) Urine RBC >20 H (0-2) /HPF Urine WBC 0-5 (0-5) /HPF Ur Squamous Epith Cells 0-2 (0-2) /HPF Urine Bacteria None Seen (None Seen) Hyaline Casts 0-2 (0-2) /LPF Discharge Plan Discharge Clinical Impression: Flank pain Patient Disposition: Left W/O Completing Treatment Prescriptions: No Action ibuprofen 600 mg tablet 600 mg PO Q6H PRN (Reason: pain) Qty: 30 0RF cyclobenzaprine 10 mg tablet 10 mg PO Q8H PRN (Reason: muscle spasm) Qty: 15 0RF Discharge Date/Time: 04/15/24 22:35
[2024-04-15 19:11] LABS: Basophils Percent Auto 0.2 % (0-2); Eosinophils Absolute Auto 0.1 X10*3/uL (0.0-0.4); Eosinophils Percent Auto 0.6 % (0-4); Hematocrit 41.1 % (42.0-52.0); Hemoglobin 13.4 g/dl (14.0-18.0); Imm Gran Abs Auto 0.02 X10*3/uL (0.00-0.03); Imm Gran Pct Auto 0.2 % (0.0-0.4); Lymphocytes Percent Auto 22.6 % (20-40); MANUAL DIFF FLAG NO; Mean Corpuscular HGB Conc 32.6 g/dl (31.0-36.0); Mean Corpuscular Volume 82.9 fL (80.0-98.0); Mean Platelet Volume 10.6 fL (9.4-12.4); Monocytes Absolute Auto 0.9 X10*3/uL (0.1-1.2); Monocytes Percent Auto 10.5 % (2-11); Neutrophils Absolute Auto 5.9 x10*3/uL (2.0-8.3); Neutrophils Percent Auto 65.9 % (45-73); Platelet Count 190 X10*3/uL (160-400); Red Blood Count 4.96 X10*6/uL (4.60-5.80); Red Cell Distribution Width 14.6 % (11.0-16.0)
[2024-04-15 19:27] LABS: Anion Gap 14 (12-20); Blood Urea Nitrogen 18 mg/dL (9-16); Calcium 8.5 mg/dL (8.4-10.2); Carbon Dioxide 22 mmol/L (22-29); Chloride 106 mmol/L (96-108); Creatinine Clr Calc Pharmacy 69.7; Estimated Glomerular Filt Rate > 60; Glucose Random 129 mg/dL (60-115); Lipase 24 U/L (8-78); Potassium 3.6 mmol/L (3.3-5.1); Sodium 138 mmol/L (135-145)
[2024-04-15 19:35] LABS: Troponin-I High Sensitivity < 2.7 ng/L (<3.5-35.0)
[2024-04-15 20:03] LABS: Appearance Urine Clear; Color Urine Yellow; Glucose Urine UA Negative (Negative); Leukocyte Esterase Urine Negative (Negative); Nitrite Urine Negative (Negative); PH 5.5 (5.0-9.0); UMIC TRIGGER UACC YES; Urine Blood Large (3+) (Negative); Urine Ketones Negative (Negative); Urine Protein Negative (Neg-Trace)
[2024-04-15 20:08] LABS: Bacteria Urine None Seen (None Seen); Hyaline Casts Urine 0-2 /LPF (0-2); RBC Urine >20 /HPF (0-2); Squamous Epithelial Cell Urine 0-2 /HPF (0-2); WBC Urine 0-5 /HPF (0-5)
--- NOTE | 2024-04-15 22:33 | PC.NURSE ---
pt advised security up front that he thinks he may have passed a kidney stone and feels better and wants to go home. healthcare risk control consultant aware pt has already left.
== END 2024-04-15 22:35 | disposition left against medical advice (07) ==
PROVIDERS: Physician Assistant; Emergency Provider Emergency Medicine
DX: R10.9 Unspecified abdominal pain (principal); R11.2 Nausea with vomiting, unspecified; H53.8 Other visual disturbances; Z87.442 Personal history of urinary calculi
CPT/HCPCS: 36415; 80048; 81001; 81003; 83690; 83735; 84484; 85025; 93005; 99283

== ENCOUNTER 2024-04-24 07:04 | Emergency (ER) | payer BC, SELFPAY ==
--- NOTE | ~2024-04-24 | CT_ITS ---
EXAMINATION: CT ABDOMEN AND PELVIS WITHOUT CONTRAST CLINICAL INFORMATION: Bilateral flank pain COMPARISON: CT abdomen and pelvis 03/15/2019 TECHNIQUE: Multidetector volumetric imaging was performed from the superior aspect of the liver through the pubic symphysis. Sagittal and coronal reformatted images were obtained on the technologist's workstation. This CT examination was performed using dose optimization techniques as appropriate, variously including the following: *Automated exposure control *Adjustment of mA and/or kV according to patient size (this includes techniques or standardized protocols for targeted exams where dose is matched to indication/reason for exam; i.e. extremities or head) *Use of iterative reconstruction technique DLP: 504 mGy-cm FINDINGS: LUNG BASES: There is bibasilar dependent atelectasis. The heart size is normal. LIVER, GALLBLADDER, AND BILIARY TREE: The liver is normal in size, shape, and attenuation. No focal hepatic lesion or biliary ductal dilatation is present. The gallbladder is unremarkable with no evidence of radiopaque gallstones, gallbladder wall thickening, or obvious pericholecystic inflammatory changes. PANCREAS: Unremarkable. SPLEEN: Unremarkable. ADRENAL GLANDS: Unremarkable. KIDNEYS AND URETERS: The kidneys are normal in size, shape, and attenuation. A level 2 mm millimeter there are multiple 2-tumor range calculi in the upper mid and lower pole bilateral kidneys. No caliectasis or hydronephrosis. BLADDER: Unremarkable. GASTROINTESTINAL TRACT: There is scattered moderate stool and gas throughout the colon without distention. The small bowel loops are normal caliber. Appendix is not visualized. ABDOMINAL WALL: There is a small umbilical hernia containing fat. LYMPH NODES: Normal. VASCULAR: Unremarkable. PELVIC VISCERA: The prostate gland is moderately enlarged. Abnormal inguinal lymphadenopathy or mass seen. OSSEOUS STRUCTURES: No aggressive lytic or sclerotic process seen. CT/CT abdomen pelvis wo IV con IMPRESSION: 1. Multiple bilateral nonobstructive renal calculi. No caliectasis or hydronephrosis. 2. Mild constipation. 3. Moderate prostate enlargement. Fleischner guidelines were followed. Electronically signed by: Victorino Kong MD 04/24/2024 08:52 AM EDT
[2024-04-24 07:10] VITALS: BP 105/79; PULSE 84; RESP 18; TEMP 35.8; O2SAT 97; BMI 27.7
[2024-04-24 07:47] LABS: Appearance Urine Clear; Color Urine Yellow; Glucose Urine UA Negative (Negative); Leukocyte Esterase Urine Negative (Negative); Nitrite Urine Negative (Negative); Specific Gravity - Urine >= 1.030 (1.005-1.025); Urine Blood Negative (Negative); Urine Ketones Negative (Negative); Urine Protein Negative (Neg-Trace)
[2024-04-24 07:52] LABS: Bacteria Urine None Seen (None Seen); Hyaline Casts Urine 0-2 /LPF (0-2); RBC Urine 0-2 /HPF (0-2); Squamous Epithelial Cell Urine 0-2 /HPF (0-2); WBC Urine 0-5 /HPF (0-5)
--- NOTE | 2024-04-24 08:17 | ED.ABDPAIN ---
HPI - Abdominal Pain General Chief Complaint: Abdominal Pain Stated Complaint: Kidney pain Time Seen by Provider: 04/24/24 08:04 Source: patient Mode of arrival: ambulatory Limitations: no limitations History of Present Illness ED Provider: Taty Villalta APRN HPI narrative: 58-year-old male with a history of kidney stones presents the ER with complaints of bilateral flank pain since yesterday. Patient reports last Thursday he had sudden onset of flank pain and vomiting. He came to the emergency room but left due to long wait. He feels that he did pass a kidney stone as his pain resolved that night. He was feeling well until yesterday when he developed pain again. Denies fever, vomiting, urinary symptoms at this time. Related Data Previous Rx's ?Medication ?Instructions ?Recorded cyclobenzaprine 10 mg tablet 10 mg PO Q8H PRN muscle spasm #15 04/24/24 tabs ibuprofen 600 mg tablet 600 mg PO Q6H PRN pain #30 tabs 04/24/24 Allergies Allergy/AdvReac Type Severity Reaction Status Date / Time No Known Allergies Allergy Verified 04/24/24 07:12 [No Known Allergies*] Review of Systems Review of Systems Yes all other systems are reviewed and are negative Constitutional: Reports no additional constitutional complaints, Denies body ache(s), Denies chills, Denies fever(s), Denies headache(s), Denies night sweats, Denies weakness and Denies weight loss Eyes: Reports no additional eye complaints and Denies change in vision Reports system reviewed and no additional complaints, except as documented, Denies dizziness, Denies headache(s), Denies nasal congestion, Denies nasal discharge and Denies neck pain Cardiovascular: Reports no additional cardiovascular complaints, Denies chest pain, Denies leg edema and Denies dyspnea Respiratory: Reports no additional respiratory complaints, Denies cough and Denies dyspnea Gastrointestinal: Reports no additional gastrointestinal complaints, Denies abdominal pain, Denies diarrhea, Denies nausea and Denies vomiting Genitourinary: Denies urinary incontinence Musculoskeletal: Reports no additional musculoskeletal complaints, Reports back pain, Denies arthralgias, Denies joint swelling, Denies neck pain, Denies numbness and Denies tingling Skin/Breast: Reports system reviewed and no additional complaints, except as docu and Denies rash Reports system reviewed and no additional complaints, except as documented, Denies Abnormal speech present, Denies dizziness, Denies headache(s), Denies numbness, Denies tingling and Denies weakness PMFSH Past Medical History Attestation statement: The following information was validated with the patient. Source: old records reviewed and nursing notes reviewed Medical History H/O nephrolithotomy with removal of calculi Surgical History H/O hand surgery Family History Family History Father Cancer Lung cancer Mother ESRD (end stage renal disease) Social History Social History Housing: House Alcohol intake: former Patient Tobacco Use Status: Never used Tobacco Smoked in Last 30 Days: No e-Cigarette/Vaping Use: Never Used Use of substances other than those prescribed or required for medical reasons: No Advance Directives: No Advance Directives Information Provided: No service: No Current occupational status: employed 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 Cognitive needs: No Hearing needs: No Vision needs: No Physical Exam ED Vital Signs: Vital Signs - 24 hr 04/24/24 07:10 Temperature 96.5 F L Pulse Rate 84 Respiratory Rate 18 Blood Pressure 105/79 Pulse Oximetry 97 BMI result Body Mass Index 27.7 Const General: cooperative, healthy appearing, comfortable and no acute distress Orientation/consciousness: patient oriented x3 Limitations: no limitations [facility] Head: Yes normal to inspection Ears: hearing grossly normal bilaterally General nose exam: Normal external nose present Face and sinus: Yes normal facial exam Mouth: Normal oral and palatal mucosa present Throat: Yes posterior oropharynx normal Eyes General: appearance normal, both eyes and all related structures Pupils: Equal, round and reactive pupils present Neck Neck: Yes normal visual inspection Chest Chest palpation & inspection: normal inspection of the chest Resp Effort & Inspection: normal respiratory effort Auscultation: clear to auscultation bilaterally Cardio Rate: regular rate Rhythm: regular rhythm Peripheral pulses: Peripheral pulses 2+ throughout GI Inspection: Yes normal to inspection Palpation (GI): Soft to palpation and nontender Auscultation: normal bowel sounds General: Yes no CVA tenderness Back/Spine/Pelvis Other: Lumbar TTP bilaterally Back: no CVA tenderness Thoracic/Lumbar Spine: thoracic and lumbar spine normal to inspection Skin General skin exam: no rashes or lesions noted Neuro General: patient oriented x3, no focal motor deficits and normal sensation to monofilament Cranial nerves: Yes Equal, round and reactive pupils present Cognition (Neuro): normal cognition Speech: No Abnormal speech present Gait exam (Neuro): Normal gait present Motor exam (neuro): 5/5 motor strength present throughout Sensory Exam: Normal double simultaneous stimulation for sensation Extrem General: Yes normal to inspection Course Course Course Narrative: CT shows nonobstructing renal calculi. Urine shows no signs of infection. Lab work is unremarkable. Explained findings of CT scan to patient. Recommend management of his lower back pain at home. Reviewed worrisome signs and symptoms of when to return to the emergency room. Comfortable plan for discharge home Medical Decision Making Medical Decision Making [facility] Narrative: 58-year-old male with a history of kidney stones presents the ER with complaints of bilateral flank pain since yesterday.? Patient reports last Thursday he had sudden onset of flank pain and vomiting.? He came to the emergency room but left due to long wait.? He feels that he did pass a kidney stone as his pain resolved that night.? He was feeling well until yesterday when he developed pain again.? Denies fever, vomiting, urinary symptoms at this time. On exam pain is more lumbar. No neurological deficits or red flags. No CVAT. No focal abdominal pain Will obtain urine, labs, CT Differential Diagnosis Differential Diagnoses: The differential diagnosis associated with the presentation includes Renal colic, pyelonephritis Lumbar radiculopathy, lumbar strain, herniated disc Low suspicion for epidural abscess with no risk factors of same, no neurological deficits or red flag symptoms Low suspicion for ACS with no reports of chest pain, shortness of breath, diaphoresis or vomiting Low suspicion for malignancy with no red flag symptoms, more acute onset Low suspicion for cord compression, cauda equina with normal neurological exam and no red flag symptoms Admission/Observation Consideration of admission/observation: Escalation of care including admission/observation considered see course of care Lab Data MDM Lab Attestation statement: I reviewed the patient's lab results. 04/24/24 08:56 04/24/24 08:56 Labs: Lab Results 04/24/24 04/24/24 Range/Units 07:40 08:56 WBC 10.1 (4.8-10.8) X10*3/uL RBC 5.05 (4.60-5.80) X10*6/uL Hgb 13.8 L (14.0-18.0) g/dl Hct 42.1 (42.0-52.0) % MCV 83.4 (80.0-98.0) fL MCH 27.3 (27.0-33.0) pg MCHC 32.8 (31.0-36.0) g/dl RDW 15.0 (11.0-16.0) % Plt Count 165 (160-400) X10*3/uL MPV 10.1 (9.4-12.4) fL Immature Gran % (Auto) 0.3 (0.0-0.4) % Neut % (Auto) 69.1 (45-73) % Lymph % (Auto) 18.7 L (20-40) % [place] % (Auto) 11.1 H (2-11) % Eos % (Auto) 0.6 (0-4) % Baso % (Auto) 0.2 (0-2) % Lymph # (Auto) 1.9 (1.2-4.9) X10*3/uL [place] # (Auto) 1.1 (0.1-1.2) X10*3/uL Eos # (Auto) 0.1 (0.0-0.4) X10*3/uL Baso # (Auto) 0.0 (0.0-0.2) X10*3/uL Abs Immat Gran (auto) 0.03 (0.00-0.03) X10*3/uL Absolute Neuts (auto) 7.0 (2.0-8.3) x10*3/uL Absolute Nucleated RBC 0.000 (0.0-0.012) X10*3/uL Nucleated RBC % (auto) 0.0 (0.0-0.2) /100WBC Sodium 140 (135-145) mmol/L Potassium 4.0 (3.3-5.1) mmol/L Chloride 111 H (96-108) mmol/L Carbon Dioxide 24 (22-29) mmol/L Anion Gap 9 L (12-20) BUN 20 H (9-16) mg/dL Creatinine 1.14 (0.5-1.4) mg/dL Estim Creat Clear Calc 74.8 Estimated GFR > 60 Random Glucose 107 (60-115) mg/dL Calcium 8.0 L (8.4-10.2) mg/dL Urine Color Yellow Urine Appearance Clear Urine pH 6.0 (5.0-9.0) Ur Specific [place] >= 1.030 H (1.005-1.025) Urine Protein Negative (Neg-Trace) mg/dL Urine Glucose (UA) Negative (Negative) mg/dL Urine Ketones Negative (Negative) mg/dL Urine Blood Negative (Negative) Urine Nitrite Negative (Negative) Ur Leukocyte Esterase Negative (Negative) Urine RBC 0-2 (0-2) /HPF Urine WBC 0-5 (0-5) /HPF Ur Squamous Epith Cells 0-2 (0-2) /HPF Urine Bacteria None Seen (None Seen) Hyaline Casts 0-2 (0-2) /LPF Independent Interpretation I performed an independent interpretation of an: CT Scan Interpretation: I independently reviewed the CT scan agree with the radiologist's Radiology Impression Discussion of test interpretation with radiology: I have reviewed the radiologist's reading. Radiologist Impression: Fahad Butterfield??58??M??1965 ? Allergy/Adv: No Known Allergies Close Abdomen/Pelvis CT (Signed) Victorino Kong - 04/24/24 Renal Ultrasound (Signed) Claudia Hill - 05/19/23 Scrotum Ultrasound (Signed) Parris Jaime - 10/31/22 Scrotum Ultrasound (Signed) Rodrigo Griffin - 10/01/22 Retroperitoneum Ultrasound (Signed) Rodrigo Griffin - 10/01/22 Launch?Image [place] [id number] CT Scan Report Signed Patient: Fahad Butterfield MR#: [id number] : 1965 Acct:[id number] Age/Sex: 58 / M ADM Date: 04/24/24 Loc: HO.ED Attending Dr: Ordering Physician: Taty Martin NP Date of Service: 04/24/24 Procedure(s): CT abdomen pelvis wo IV con Accession Number(s): [id number] cc: Physician,Unknown ; Taty Martin NP~ EXAMINATION: CT ABDOMEN AND PELVIS WITHOUT CONTRAST CLINICAL INFORMATION: Bilateral flank pain COMPARISON: CT abdomen and pelvis 03/15/2019 TECHNIQUE: Multidetector volumetric imaging was performed from the superior aspect of the liver through the pubic symphysis. Sagittal and coronal reformatted images were obtained on the technologist's workstation. This CT examination was performed using dose optimization techniques as appropriate, variously including the following: *Automated exposure control *Adjustment of mA and/or kV according to patient size (this includes techniques or standardized protocols for targeted exams where dose is matched to indication/reason for exam; i.e. extremities or head) *Use of iterative reconstruction technique DLP: 504 mGy-cm FINDINGS: LUNG BASES: There is bibasilar dependent atelectasis. The heart size is normal. LIVER, GALLBLADDER, AND BILIARY TREE: The liver is normal in size, shape, and attenuation. No focal hepatic lesion or biliary ductal dilatation is present. The gallbladder is unremarkable with no evidence of radiopaque gallstones, gallbladder wall thickening, or obvious pericholecystic inflammatory changes. PANCREAS: Unremarkable. SPLEEN: Unremarkable. ADRENAL GLANDS: Unremarkable. KIDNEYS AND URETERS: The kidneys are normal in size, shape, and attenuation. A level 2 mm millimeter there are multiple 2-tumor range calculi in the upper mid and lower pole bilateral kidneys. No caliectasis or hydronephrosis. BLADDER: Unremarkable. GASTROINTESTINAL TRACT: There is scattered moderate stool and gas throughout the colon without distention. The small bowel loops are normal caliber. Appendix is not visualized. ABDOMINAL WALL: There is a small umbilical hernia containing fat. LYMPH NODES: Normal. VASCULAR: Unremarkable. PELVIC VISCERA: The prostate gland is moderately enlarged. Abnormal inguinal lymphadenopathy or mass seen. OSSEOUS STRUCTURES: No aggressive lytic or sclerotic process seen. CT/CT abdomen pelvis wo IV con IMPRESSION: 1. Multiple bilateral nonobstructive renal calculi. No caliectasis or hydronephrosis. 2. Mild constipation. 3. Moderate prostate enlargement. Prescription Management I considered prescription management with: Pain Medication Discharge Plan Discharge Clinical Impression: Back pain Patient Disposition: Home, Self-Care Instructions: Back Pain (ED) Additional Instructions: Your CT scan shows several kidney stones with in your kidney which should not be causing your pain. You also have some mild constipation. Your prostate is mildly enlarged. Your urine shows no signs of infection. Your lab work is normal. Apply heat or ice to your back Gentle stretching No heavy lifting or bending Follow-up with your primary care doctor for any continued symptoms Prescriptions: New ibuprofen 600 mg tablet 600 mg PO Q6H PRN (Reason: pain) Qty: 30 0RF cyclobenzaprine 10 mg tablet 10 mg PO Q8H PRN (Reason: muscle spasm) Qty: 15 0RF Referrals: Physician,Unknown J [Primary Care Provider] - 1 week Print Language: Kazakh
[2024-04-24 09:00] LABS: MANUAL DIFF FLAG NO
[2024-04-24 09:03] LABS: Basophils Percent Auto 0.2 % (0-2); Eosinophils Absolute Auto 0.1 X10*3/uL (0.0-0.4); Eosinophils Percent Auto 0.6 % (0-4); Hematocrit 42.1 % (42.0-52.0); Hemoglobin 13.8 g/dl (14.0-18.0); Imm Gran Abs Auto 0.03 X10*3/uL (0.00-0.03); Imm Gran Pct Auto 0.3 % (0.0-0.4); Lymphocytes Absolute Auto 1.9 X10*3/uL (1.2-4.9); Lymphocytes Percent Auto 18.7 % (20-40); Mean Corpuscular HGB Conc 32.8 g/dl (31.0-36.0); Mean Corpuscular Hemoglobin 27.3 pg (27.0-33.0); Mean Corpuscular Volume 83.4 fL (80.0-98.0); Mean Platelet Volume 10.1 fL (9.4-12.4); Monocytes Absolute Auto 1.1 X10*3/uL (0.1-1.2); Monocytes Percent Auto 11.1 % (2-11); Neutrophils Percent Auto 69.1 % (45-73); Platelet Count 165 X10*3/uL (160-400); Red Blood Count 5.05 X10*6/uL (4.60-5.80); White Blood Count 10.1 X10*3/uL (4.8-10.8)
[2024-04-24 09:19] LABS: Anion Gap 9 (12-20); Blood Urea Nitrogen 20 mg/dL (9-16); Carbon Dioxide 24 mmol/L (22-29); Chloride 111 mmol/L (96-108); Creatinine Clr Calc Pharmacy 74.8; Estimated Glomerular Filt Rate > 60; Glucose Random 107 mg/dL (60-115); Sodium 140 mmol/L (135-145)
[2024-04-24 09:44] VITALS: BP 105/79; PULSE 84; RESP 18; TEMP 36.1; O2SAT 98
== END 2024-04-24 09:45 | disposition home or self-care (01) ==
PROVIDERS: Nurse Practitioner Family; Emergency Provider Emergency Medicine
DX: M54.50 Low back pain, unspecified (principal); R10.9 Unspecified abdominal pain; R11.10 Vomiting, unspecified; Z79.899 Other long term (current) drug therapy
CPT/HCPCS: 36415; 74176; 80048; 81001; 85025; 99284

== ENCOUNTER 2024-06-09 15:57 | Outpatient (AMB) | payer BC, SELFPAY ==
--- NOTE | 2024-06-09 16:00 | MHC.PC.OV ---
Vital Signs 06/09/24 16:04 Height 5 ft 8 in Weight 179 lb 2 oz BMI 27.2 BP 104/78 Blood Pressure Location Lt brachial Position Sitting Pulse 84 Pulse Source Pulse Oximeter Pulse Oximetry (%) 98 Oxygen Delivery Method Room Air Intake Visit Reasons: PE - see comments Blending Coordinator Required: No Accompanied by: Self / Same As Patient Allergies No Known Allergies [No Known Allergies*] Allergy (Verified 06/09/24 16:06) Medication List - Last Reconciled 06/09/24 by Mateus Sheffield PA-C cyclobenzaprine 10 mg PO Q8H PRN ibuprofen 600 mg PO Q6H PRN Tobacco use date assessed: 06/09/24 Dental Screening Dental Screen Date: 06/09/24 Did you have a dental visit in the last 12 months?: Yes Did you have a dental problem in the last 6 months where you did not have access to dental care?: No Was dental information given to patient?: Patient has dentist HPI PE - see comments HPI Details Patient is a 59-year-old male here today for routine annual physical. Pateint has a pmhx significant for SNHL, nephrloithiasis. Has recently gotten hearing exam recently and report he does needs amplification. He reports they are still considerations for a full cochlear implant. 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 He does report brief episodes of his ears popping and him being able to here temporarily. he has seen an ENT specialist in the past whom recommended some kind of surgery in the need to wearing hearing aids. He reports he has not been able to get hearing aids from insurance . His hearing is causing him some disruption in his social life. PLAN: Due to patient's above concerns and retracted right tympanic membrane will try for CT of auditory canals evaluate for a internal auditory canal mass Microscopic hematuria: He has establish care with a urologist. Has gotten recent kidney ultrasound showing decrease kidney stones. Continues to try to stay well hydrated. Has a long history of nephrolithiasis which is likely the cause of his microscopic hematuria, he does have history surgical removal of nephrolithiasis, most recent CT of abdomen showing moderately enlarged prostate. .. Colonoscopy: Has had a colonoscopy at age 51, Reports normal findings repeat in 10 years. .. Vaccine : UTD with Tdap, Has gotten COVID vaccine, declines a flu vaccine this year Laboratory Tests 06/05/22 06/05/22 04/24/24 08:47 08:50 08:56 RBC 5.05 Creatinine 1.13 1.14 Fasting Glucose 106 H Cholesterol 174 LDL Cholesterol, C alc 107 PSA Screen 2.35 Urine Blood Small (1+) H Urine RBC 6-10 H PFSH Medical History H/O nephrolithotomy with removal of calculi Surgical History H/O hand surgery Family History Father Cancer Lung cancer Mother ESRD (end stage renal disease) Social History Housing: House Alcohol intake: former Patient Tobacco Use Status: Never used Tobacco e-Cigarette/Vaping Use: Never Used service: No Current occupational status: employed 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 1. Little interest or pleasure in doing things: not at all 2. Feeling down, depressed, or hopeless: not at all 3. Trouble falling or staying asleep, or sleeping too much: not at all 4. Feeling tired or having little energy: not at all 5. Poor appetite or overeating: not at all 6. Feeling bad about yourself - or that you are a failure or have let yourself or your family down: not at all 7. Trouble concentrating on things, such as reading the newspaper or watching television: not at all 8. Moving or speaking so slowly that other people could have noticed. Or the opposite - being so fidgety or restless that you have been moving around a lot more than usual: not at all 9. Thoughts that you would be better off or of hurting yourself in some way: not at all Total score: 0 Depression Screening Interpretation: Negative Depression Screening Done: Yes 75828 - PHQ-9 Billing: Yes Source: Developed by Drs. Jamee Chavez Kurt Kroenke and colleagues, with an educational meliton from [employer]. Thrive Questionnaire Date Thrive assessed: 06/09/24 I am a: Patient What is your living situation today?: I have a steady place to live Within the past 12 months, did the food you bought not last and you didn't have the money to get more?: Never true Within the past 12 months, did you worry whether your food would run out before you got money to buy more?: Never true Do you have trouble paying for medicines?: No Do you have trouble getting transportation to medical appointments?: No Do you have trouble paying your heating and electricity bill?: No Do you have trouble taking care of your child, family member or friend?: No Do you have trouble with day-to-day activities such as bathing, preparing meals, shopping, managing finances, etc.?: No Are you currently unemployed and looking for a job?: No Are you interested in more education?: No Please select the resources that you would like help with: None Currently or been in a relationship where the following occur: No concerns reported THRIVE Score: 0 AUDIT C Alcohol Use Questionnaire (AUDIT-C) 1. How often do you have a drink containing alcohol?: Never 3. How often do you have six or more drinks on one occasion?: Never Total Score: 0 JOYCE-7 AMB Questionnaire JOYCE-7 Date JOYCE - 7 assessed: 06/09/24 Feeling nervous, anxious, or on edge: 0 = Not at all Not being able to stop or control worryin = Not at all Worrying too much about different things: 0 = Not at all Trouble relaxin = Not at all Being so restless that it is hard to sit still: 0 = Not at all Becoming easily annoyed or irritable: 0 = Not at all Feeling afraid as if something awful might happen: 0 = Not at all Total JOYCE-7 score (0-4 normal; 5-9 mild; 10-14 moderate; 15-21 severe): 0 Source: Developed by Drs. Kodak Caballero, Tavo Ledbetter and colleagues, with an educational meliton from [employer]. JOYCE-7 Assessment Billing JOYCE-7 Assessment Tool: JOYCE-7 Assessment 14474 Review of Systems Const Denies body aches, Denies chills, Denies excessive sweating, Denies fatigue, Denies fever(s) and Denies headache(s) Eyes Denies blurry vision ENT Denies dysphagia, Denies vertigo, Denies dizziness, Denies headache(s), Denies hearing loss and Denies tinnitus Card Denies chest pain, Denies chest pain with activity, Denies syncope, Denies irregular heart rhythm and Denies dyspnea Resp Denies chest congestion, Denies cough, Denies hemoptysis, Denies dyspnea and Denies wheezing GI Denies abdominal pain, Denies melena, Denies hematochezia, Denies coffee ground emesis, Denies dysphagia, Denies diarrhea, Denies nausea and Denies vomiting Denies difficulty urinating, Denies dysuria, Denies urinary frequency, Denies urinary hesitancy and Denies urinary urgency Musc Denies arthralgias, Denies limited range of motion, Denies muscle cramps and Denies muscle weakness Skin/Breast Denies rash and Denies skin ulcer Neuro Denies Abnormal speech present, Denies confusion, Denies vertigo, Denies dizziness, Denies syncope, Denies headache(s), Denies memory loss and Denies seizure-like activity Psych Denies anxiety, Denies confusion, Denies depression, Denies memory loss, Denies panic attacks and Denies paranoia Endo Denies excessive sweating, Denies fatigue, Denies flushing, Denies polydipsia and Denies polyuria Aller/Immun Denies wheezing Physical exam (Primary Care) Vital Signs: Last Vital Signs Pulse 84 06/09/24 16:04 BP 104/78 06/09/24 16:04 Pulse Ox 98 06/09/24 16:04 Oxygen Delivery Method Room Air 06/09/24 16:04 BMI result Body Mass Index 27.2 Tobacco/Smoking Status: Tobacco use Status Tobacco use date assessed 06/09/24 06/09/24 16:06 Patient Tobacco Use Status Never used Tobacco 06/09/24 16:00 e-Cigarette/Vaping Use Never Used 06/09/24 16:00 PHQ-9: PHQ-9 Score PHQ-9: Total score 0 06/09/24 16:09 Depression Screening Interpretation: Negative Thrive Assessment: Date of Thrive Assessment Date Thrive assessed 06/09/24 06/09/24 16:00 Currently or been in a relationship where the following occur: No concerns reported Const General: cooperative, comfortable, no acute distress, alert and awake; No confusion Orientation/consciousness: oriented to person, oriented to place, patient oriented x3 and No confusion HENMT Other: RIGHT TYMPANIC MEMBRANE SOMEWHAT RETRACTED Head: Yes normocephalic Ears: external ears normal, TM's abnormal bilaterally and right TM abnormal Face and sinus: No sinus tenderness Mouth: Normal oral and palatal mucosa present and tongue normal Teeth and gingiva: dentition normal and gingiva normal Throat: Yes posterior oropharynx normal, Yes tonsils normal and Yes uvula midline Eyes Conjunctivae: conjunctivae normal Sclerae: sclerae normal Pupils: Equal, round and reactive pupils present EOM: EOMs intact bilaterally Direct Ophthalmoscopy: No no photophobia Neck Neck: Yes no lymphadenopathy, No tender and Yes no JVD Thyroid: Thyroid normal Carotids: no bruits Chest Chest palpation & inspection: no tenderness Resp Effort & Inspection: normal respiratory effort, no audible wheezes, not labored and no stridor Auscultation: no crackles, no rales, no rhonchi and no wheezes Cardio Jugular venous distension: no JVD Rate: regular rate, not bradycardic and not tachycardic Rhythm: regular rhythm Bruits: no carotid bruits Peripheral pulses: Peripheral pulses 2+ throughout GI Inspection: Yes normal to inspection, No abdominal wall ecchymosis and No visible herniation Palpation (GI): Soft to palpation, nontender, no guarding, not rigid and No hepatosplenomegaly present Auscultation: normoactive bowel sounds General: Yes no CVA tenderness Back/Spine/Pelvis Back: no CVA tenderness and No back tenderness Cervical Spine: cervical ROM normal Thoracic/Lumbar Spine: thoracic and lumbar spine normal to inspection, straight leg raise negative bilaterally, No thoraco-lumbar ROM limited and No lumbar spinal tenderness Skin Lesions: no lesions Rashes: no rashes Wounds: no wounds Neuro General: oriented to person, oriented to place, patient oriented x3, CN's II-XI intact bilaterally and No confusion Cranial nerves: Yes Equal, round and reactive pupils present and Yes Normal accommodation reflex present Cognition (Neuro): normal cognition Speech: No Abnormal speech present Gait exam (Neuro): Normal gait present Motor exam (neuro): 5/5 motor strength present throughout Extrem Right upper extremity: full ROM; no cyanosis Left upper extremity: full ROM; no cyanosis Right lower extremity: no edema Left lower extremity: no edema Psych Appearance: grossly normal Mental Status: mental status grossly normal Affect: normal affect Attitude: cooperative Thought process: Normal thought process present Office Procedures Flu Questionnaire Does the patient have a severe egg allergy?: No Immunizations Fluarix Triv [id number] (PF) 45 mcg (15 mcg x 3)/0.5 mL IM syringe Performing Provider: Mateus Sheffield PA-C [facility] [place] [facility] Documented (not given) by: JANNY Alvarez on 06/09/24 16:05 Reason Not Given: Patient Refused Coding Level of Care Code Est Pt Prev Care 40-64y(33858) Diagnoses Annual physical exam Z00.00 Sensorineural hearing loss (SNHL) of both ears H90.3 Benign prostatic hyperplasia with incomplete bladder emptying N40.1; R39.14 Lower urinary tract symptom detail: incomplete bladder emptying Lower urinary tract symptom presence: symptoms present 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 Interestingly he does report hearing a popping in his ears in regains his hearing back for a few moments. Will try for CT internal auditory ear canals (3) BPH (benign prostatic hyperplasia): Code(s): N40.0 - Benign prostatic hyperplasia without lower urinary tract symptoms Category: Medical Qualifiers: Lower urinary tract symptom detail: incomplete bladder emptying Lower urinary tract symptom presence: symptoms present Qualified Code(s): N40.1 - Benign prostatic hyperplasia with lower urinary tract symptoms; R39.14 - Feeling of incomplete bladder emptying Plan: Most recent CT of abdomen and pelvis showing an enlarged prostate. Has establish with a urologist here in [place]. (4) Retracted drums: Code(s): H73.899 - Other specified disorders of tympanic membrane, unspecified ear Category: Medical Qualifiers: Laterality: right Qualified Code(s): H73.891 - Other specified disorders of tympanic membrane, right ear Plan: As per physical exam section (5) Screening for diabetes mellitus (DM): Code(s): Z13.1 - Encounter for screening for diabetes mellitus Category: Medical Plan: As per [facility] Orders: Orders Influenza [id number] Immunization 06/09/24 Z23 - Encounter for immunization CT internal auditory canals BI 06/09/24 H73.899 - Other specified disorders of tympanic membrane, unspecified ear, H90.3 - Sensorineural hearing loss, bilateral Prostate Specific Antigen Scr 06/09/24 R97.20 - Elevated prostate specific antigen [PSA], Z12.5 - Encounter for screening for malignant neoplasm of prostate Referrals Ear/Nose/Throat Referral H90.3 - Sensorineural hearing loss, bilateral
[2024-06-09 16:04] VITALS: BP 104/78; PULSE 84; O2SAT 98; BMI 27.2
== END 2024-06-09 17:12 | disposition home or self-care (01) ==
PROVIDERS: PCP Physician Assistant; Visit Provider Physician Assistant
DX: Z00.00 Encounter for general adult medical examination without abnormal findings (principal); H90.3 Sensorineural hearing loss, bilateral; N40.1 Benign prostatic hyperplasia with lower urinary tract symptoms; R39.14 Feeling of incomplete bladder emptying; H73.891 Other specified disorders of tympanic membrane, right ear; Z13.1 Encounter for screening for diabetes mellitus

== ENCOUNTER → 2024-06-09 15:57 | Outpatient (BNVA) | payer BC, SELFPAY | PROVIDERS: PCP Physician Assistant; Visit Provider Physician Assistant | DX: Z00.00 Encounter for general adult medical examination without abnormal findings (principal); H90.3 Sensorineural hearing loss, bilateral; N40.1 Benign prostatic hyperplasia with lower urinary tract symptoms; R39.14 Feeling of incomplete bladder emptying; H73.891 Other specified disorders of tympanic membrane, right ear; Z28.21 Immunization not carried out because of patient refusal | CPT/HCPCS: 90471; 96127 ==

== ENCOUNTER 2024-06-17 08:09 | Outpatient (REF) | payer BC, SELFPAY ==
[2024-06-17 09:56] LABS: Prostate Specific Antigen Scr 3.61 ng/mL (<0.05-4.0)
== END 2024-06-17 08:10 | disposition home or self-care (01) ==
LOC: HO.LAB 08:09
PROVIDERS: PCP Physician Assistant; Referring Provider Nurse Practitioner Family; Visit Provider Physician Assistant
DX: R97.20 Elevated prostate specific antigen [PSA] (principal); Z12.5 Encounter for screening for malignant neoplasm of prostate
CPT/HCPCS: 36415; 84153

== ENCOUNTER 2024-08-01 16:04 | Emergency (ER) | payer BC, SELFPAY ==
--- NOTE | ~2024-08-01 | CT_ITS ---
CLINICAL HISTORY: left flank pain CT of the abdomen and pelvis without intravenous contrast. Comparison 04/24/2024. Findings: There is mild motion artifact. Hepatic hypodensities are presumably cysts. No definite gallstones are seen. There are multiple small bilateral renal stones. No ureteral stones are identified. There is mild bilateral nonspecific pelvicaliectasis. The spleen and pancreas are unremarkable. No abdominal aortic aneurysm. There is moderate fluid in the stomach. This is nonspecific. No diverticulitis. Normal appendix. No bowel obstruction. There is a small fat containing umbilical hernia. There is moderate bladder distention. Impression: Small bilateral renal stones. No ureteral stones are identified. There is mild nonspecific bilateral renal pelvicaliectasis. Additional findings as above. This document has been electronically signed by: Ash Wetzel MD on 08/01/2024 18:13:11
[2024-08-01 16:41] VITALS: BP 116/83; PULSE 80; RESP 18; TEMP 36.6; O2SAT 98; BMI 25.8
--- NOTE | 2024-08-01 16:41 | ED_ITS ---
HPI - General Adult General Chief complaint: Abdominal Pain Stated complaint: kidney stone pain Time Seen by Provider: 08/01/24 23:45 Source: patient Limitations: no limitations History of Present Illness ED Provider: Taylor Coon PA-C HPI narrative: 59-year-old male with a history of BPH, kidney stones, SNHL, presents with low back pain x3 days. Patient states his discomfort began after he went back to the gym after not having been exercising for quite some time. Pain across entire lower back without radiation down either extremity. Denies weakness of lower extremities, paresthesia or numbness. Denies urinary retention or bowel incontinence. Denies nausea, vomiting, dysuria, hematuria or flank pain. Related Data Previous Rx's ?Medication ?Instructions ?Recorded cyclobenzaprine 10 mg tablet 10 mg PO Q8H PRN muscle spasm #15 04/24/24 tabs ibuprofen 600 mg tablet 600 mg PO Q6H PRN pain #30 tabs 04/24/24 methocarbamol 750 mg tablet 750 mg PO Q8H PRN pain #10 tabs 08/02/24 Allergies Allergy/AdvReac Type Severity Reaction Status Date / Time No Known Allergies Allergy Verified 08/01/24 16:42 [No Known Allergies*] Review of Systems 2 Review of Systems: Yes all other systems are reviewed and are negative Constitutional: Constitutional: Denies fatigue and Denies fever(s) Cardiovascular: Cardiovascular: Denies chest pain and Denies dyspnea Respiratory: Respiratory: Denies cough and Denies dyspnea Gastrointestinal: Gastrointestinal: Denies abdominal pain, Denies nausea and Denies vomiting Genitourinary: Genitourinary: Denies hematuria, Denies dysuria and Denies flank pain Musculoskeletal: Musculoskeletal: Reports back pain, Denies muscle weakness, Denies numbness, Denies radiating pain into limb and Denies tingling Neurologic: Denies numbness and Denies tingling Endocrine: Endocrine: Denies fatigue PMFSH Past Medical History Attestation statement: The following information was validated with the patient. 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 Cognitive needs: No Hearing needs: No Vision needs: No Physical Exam ED Vital Signs: Vital Signs - 24 hr 08/01/24 16:41 08/01/24 23:45 Temperature 97.9 F 97.5 F Pulse Rate 80 80 Respiratory Rate 18 18 Blood Pressure 116/83 124/81 Pulse Oximetry 98 98 Oxygen Delivery Method Room Air Room Air BMI result Body Mass Index 25.8 Const Other: Alert, well-appearing Orientation/consciousness: patient oriented x3 Resp Effort & Inspection: normal respiratory effort Cardio Other: Normal peripheral perfusion Back/Spine/Pelvis Other: No midline tenderness no CVA tenderness Skin Other: Warm dry no rash Neuro Other: Normal gait General: patient oriented x3, no focal motor deficits and CN's II-XI intact bilaterally Psych Other: Calm cooperative Course Course Course Narrative: This is a rapid medical exam performed by Hannah Goodson NP: Additional HPI, ROS, PE not included below will be deferred to primary provider. Patient is a 59-year-old male with history of BPH, nephrolithiasis, sensorineural hearing loss of both ears presenting to the ED with complaint of left flank pain for a few days. Plan: labs, UA, CT Medications Administered Discontinued Medications Generic Name Dose Route Start Last Admin Trade Name Freq PRN Reason Stop Dose Admin Ketorolac Tromethamine 15 mg 08/02/24 00:29 08/02/24 00:53 Ketorolac Tromethamine 15 Mg/Ml Vial IM 08/02/24 00:30 15 mg ONCE ONE Administration Methocarbamol 750 mg 08/02/24 00:29 08/02/24 00:53 Methocarbamol 750 Mg Tablet PO 08/02/24 00:30 750 mg ONCE ONE Administration Medical Decision Making Medical Decision Making MDM Narrative: 59-year-old male with a history of BPH, kidney stones, SNHL, presents with low back pain x3 days. Patient states his discomfort began after he went back to the gym after not having been exercising for quite some time. Pain across entire lower back without radiation down either extremity. Denies weakness of lower extremities, paresthesia or numbness. Denies urinary retention or bowel incontinence. Denies nausea, vomiting, dysuria, hematuria or flank pain. Problem: Kidney stones History: Per patient I have considered the following differential diagnoses: Renal colic, pyelonephritis, UTI, musculoskeletal strain, lumbar radiculopathy, cauda equina Plan: Thought about renal colic, however the patient is not having any symptoms, no flank pain no nausea vomiting. Patient has a mechanism of injury for lumbar strain without radicular symptoms. He also has no red flag signs symptoms concerning for cord compression. We will treat with a muscle relaxant and an anti-inflammatory. Screening labs and a CT scan were already ordered From triage. I have independently reviewed the following tests: Labs: No leukocytosis, not anemic, no electrolyte abnormalities CT abdomen and pelvis:mpression: Small bilateral renal stones. No ureteral stones are identified. There is mild nonspecific bilateral renal pelvicaliectasis. Additional findings as above. This document has been electronically signed by: Ash Wetzel MD on 08/01/2024 18:13:11 Lab Data 08/02/24 00:11 08/02/24 00:11 Labs: Lab Results 08/02/24 Range/Units 00:11 WBC 9.4 (4.8-10.8) X10*3/uL RBC 4.93 (4.60-5.80) X10*6/uL Hgb 13.5 L (14.0-18.0) g/dl Hct 40.8 L (42.0-52.0) % MCV 82.8 (80.0-98.0) fL MCH 27.4 (27.0-33.0) pg MCHC 33.1 (31.0-36.0) g/dl RDW 14.6 (11.0-16.0) % Plt Count 209 D (160-400) X10*3/uL MPV 10.2 (9.4-12.4) fL Immature Gran % (Auto) 0.2 (0.0-0.4) % Neut % (Auto) 63.7 (45-73) % Lymph % (Auto) 22.6 (20-40) % [place] % (Auto) 12.0 H (2-11) % Eos % (Auto) 1.2 (0-4) % Baso % (Auto) 0.3 (0-2) % Lymph # (Auto) 2.1 (1.2-4.9) X10*3/uL [place] # (Auto) 1.1 (0.1-1.2) X10*3/uL Eos # (Auto) 0.1 (0.0-0.4) X10*3/uL Baso # (Auto) 0.0 (0.0-0.2) X10*3/uL Abs Immat Gran (auto) 0.02 (0.00-0.03) X10*3/uL Absolute Neuts (auto) 6.0 (2.0-8.3) x10*3/uL Absolute Nucleated RBC 0.000 (0.0-0.012) X10*3/uL Nucleated RBC % (auto) 0.0 (0.0-0.2) /100WBC Sodium 139 (135-145) mmol/L Potassium 4.0 (3.3-5.1) mmol/L Chloride 107 (96-108) mmol/L Carbon Dioxide 25 (22-29) mmol/L Anion Gap 11 L (12-20) BUN 19 H (9-16) mg/dL Creatinine 1.00 (0.5-1.4) mg/dL Estim Creat Clear Calc 77.9 Estimated GFR > 60 Random Glucose 102 (60-115) mg/dL Calcium 8.7 D (8.4-10.2) mg/dL Total Bilirubin 0.6 (0.0-1.0) mg/dL AST 37 (5-37) U/L ALT 55 H (0-40) U/L Alkaline Phosphatase 72 (39-117) U/L Total Protein 7.2 (6.5-8.0) g/dL Albumin 4.2 (3.5-5.0) g/dL Discharge Plan Discharge Clinical Impression: Lumbar strain Patient Disposition: Home, Self-Care Instructions: Low Back Strain (ED), Lower Back Exercises (ED), Core Strengthening Exercises (ED) Additional Instructions: You have low back strain. See home care instructions. Use OTCibuprofen 600 mg taken every 6 hours with food as an anti-inflammatory. Use the methocarbamol, this is a muscle relaxant, as needed for further pain. To note do not drive or operate machinery while taking the medication as it will cause drowsiness. Follow up with your primary care provider as needed. To know all of your screening labs were normal, the CT scan of the abdomen was normal as well. Prescriptions: New methocarbamol 750 mg tablet 750 mg PO Q8H PRN (Reason: pain) Qty: 10 0RF No Action ibuprofen 600 mg tablet 600 mg PO Q6H PRN (Reason: pain) Qty: 30 0RF cyclobenzaprine 10 mg tablet 10 mg PO Q8H PRN (Reason: muscle spasm) Qty: 15 0RF Stand Alone Forms: Work/School Release Print Language: Andorran
--- NOTE | 2024-08-01 17:22 | MHC.EDTECH ---
This pct called patient 3 times in the last hour no answer. RN Aware
[2024-08-01 23:45] VITALS: BP 124/81; PULSE 80; RESP 18; TEMP 36.4; O2SAT 98
[2024-08-02 00:22] LABS: MANUAL DIFF FLAG NO
[2024-08-02 00:25] LABS: Basophils Percent Auto 0.3 % (0-2); Eosinophils Absolute Auto 0.1 X10*3/uL (0.0-0.4); Eosinophils Percent Auto 1.2 % (0-4); Hematocrit 40.8 % (42.0-52.0); Hemoglobin 13.5 g/dl (14.0-18.0); Imm Gran Abs Auto 0.02 X10*3/uL (0.00-0.03); Imm Gran Pct Auto 0.2 % (0.0-0.4); Lymphocytes Absolute Auto 2.1 X10*3/uL (1.2-4.9); Lymphocytes Percent Auto 22.6 % (20-40); Mean Corpuscular HGB Conc 33.1 g/dl (31.0-36.0); Mean Corpuscular Hemoglobin 27.4 pg (27.0-33.0); Mean Corpuscular Volume 82.8 fL (80.0-98.0); Mean Platelet Volume 10.2 fL (9.4-12.4); Monocytes Absolute Auto 1.1 X10*3/uL (0.1-1.2); Neutrophils Percent Auto 63.7 % (45-73); Platelet Count 209 X10*3/uL (160-400); Red Blood Count 4.93 X10*6/uL (4.60-5.80); Red Cell Distribution Width 14.6 % (11.0-16.0); White Blood Count 9.4 X10*3/uL (4.8-10.8)
[2024-08-02 00:39] LABS: Alanine Aminotransferase 55 U/L (0-40); Albumin Level 4.2 g/dL (3.5-5.0); Alkaline Phosphatase 72 U/L (39-117); Anion Gap 11 (12-20); Aspartate Amino Transferase 37 U/L (5-37); Bilirubin Total 0.6 mg/dL (0.0-1.0); Blood Urea Nitrogen 19 mg/dL (9-16); Calcium 8.7 mg/dL (8.4-10.2); Carbon Dioxide 25 mmol/L (22-29); Chloride 107 mmol/L (96-108); Creatinine Clr Calc Pharmacy 77.9; Estimated Glomerular Filt Rate > 60; Glucose Random 102 mg/dL (60-115); Sodium 139 mmol/L (135-145); Total Protein 7.2 g/dL (6.5-8.0)
[2024-08-02] MEDS: Ketorolac Tromethamine 15 MG/ML VIAL IM (00:53)
[2024-08-02] MEDS: methocarbamoL 750 MG TABLET PO (00:53)
[2024-08-02 01:48] VITALS: BP 116/82; PULSE 90; RESP 14; TEMP 36.2; O2SAT 95
[2024-08-02 01:50] VITALS: BP 116/82; PULSE 90; RESP 14; TEMP 36.2; O2SAT 95
== END 2024-08-02 01:50 | disposition home or self-care (01) ==
PROVIDERS: Registered Nurse Emergency; Emergency Provider Internal Medicine; PCP Physician Assistant
DX: S39.012A Strain of muscle, fascia and tendon of lower back, initial encounter (principal); X50.9XXA Other and unspecified overexertion or strenuous movements or postures, initial encounter; M54.50 Low back pain, unspecified; R10.9 Unspecified abdominal pain; Y93.B9 Activity, other involving muscle strengthening exercises; Y92.59 Other trade areas as the place of occurrence of the external cause; Y99.9 Unspecified external cause status
CPT/HCPCS: 36415; 74176; 80053; 85025; 96372; 99283; 99284; J1885

== ENCOUNTER → 2024-08-01 16:43 | Outpatient (BNV) | payer BC, SELFPAY | PROVIDERS: PCP Physician Assistant; Visit Provider Radiology Diagnostic Radiology | DX: N20.0 Calculus of kidney (principal); Q62.39 Other obstructive defects of renal pelvis and ureter | CPT/HCPCS: 74176 ==

== ENCOUNTER 2024-08-04 13:13 | Outpatient (AMB) | payer BC, SELFPAY ==
[2024-08-04 13:16] VITALS: BP 120/88; PULSE 82; TEMP 36.2; O2SAT 98; BMI 28.0
--- NOTE | 2024-08-04 13:16 | A.OFFPC_ITS ---
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 Accompanied by: Self / Same As Patient Allergies No Known Allergies [No Known Allergies*] Allergy (Verified 08/04/24 13:20) Medication List - Last Reconciled 08/04/24 by Marixa Sher PA-C cyclobenzaprine 10 mg PO Q8H PRN ibuprofen 600 mg PO Q6H PRN methocarbamol 750 mg PO Q8H PRN Tobacco use date assessed: 08/04/24 Dental Screening Dental Screen Date: 06/09/24 Did you have a dental visit in the last 12 months?: Yes Did you have a dental problem in the last 6 months where you did not have access to dental care?: No Was dental information given to patient?: Patient has dentist HPI [facility] ED F/U Lumbar pain/needs excuse for work HPI Details 59-year-old male with past medical histo ry of sn HL, nephrolithiasis, BPH last seen by Yohannes coming in for hospital discharge follow up. In review of the notes, patient was seen in [facility] ED 08/02/2024 any for low back pain CT abdomen and pelvis were negative and patient was diagnosed with lumbar strain. Advised to use [id number] ibuprofen and methocarbamol for pain. Patient tells us today he continues to have positional low back pain that is worse while walking or moving. The back pain has not changed but is persistent. He is out of muscle relaxers and ibuprofen and would like a refill. 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 1. Little interest or pleasure in doing things: not at all 2. Feeling down, depressed, or hopeless: not at all 3. Trouble falling or staying asleep, or sleeping too much: not at all 4. Feeling tired or having little energy: not at all 5. Poor appetite or overeating: not at all 6. Feeling bad about yourself - or that you are a failure or have let yourself or your family down: not at all 7. Trouble concentrating on things, such as reading the newspaper or watching television: not at all 8. Moving or speaking so slowly that other people could have noticed. Or the opposite - being so fidgety or restless that you have been moving around a lot more than usual: not at all 9. Thoughts that you would be better off or of hurting yourself in some way: not at all Total score: 0 Depression Screening Interpretation: Negative Depression Screening Done: Yes 84385 - PHQ-9 Billing: Yes Source: Developed by Drs. Kodak Caballero, Jamee Oh, Tavo Cabezas and colleagues, with an educational meliton from [employer]. Thrive Questionnaire Date Thrive assessed: 08/04/24 I am a: Patient What is your living situation today?: I have a steady place to live Within the past 12 months, did the food you bought not last and you didn't have the money to get more?: Never true Within the past 12 months, did you worry whether your food would run out before you got money to buy more?: Never true Do you have trouble paying for medicines?: No Do you have trouble getting transportation to medical appointments?: No Do you have trouble paying your heating and electricity bill?: No Do you have trouble taking care of your child, family member or friend?: No Do you have trouble with day-to-day activities such as bathing, preparing meals, shopping, managing finances, etc.?: No Are you currently unemployed and looking for a job?: No Are you interested in more education?: No Please select the resources that you would like help with: None Currently or been in a relationship where the following occur: No concerns reported THRIVE Score: 0 AUDIT C Alcohol Use Questionnaire (AUDIT-C) 1. How often do you have a drink containing alcohol?: Never 3. How often do you have six or more drinks on one occasion?: Never Total Score: 0 JOYCE-7 AMB Questionnaire JOYCE-7 Date JOYCE - 7 assessed: 08/04/24 Feeling nervous, anxious, or on edge: 0 = Not at all Not being able to stop or control worryin = Not at all Worrying too much about different things: 0 = Not at all Trouble relaxin = Not at all Being so restless that it is hard to sit still: 0 = Not at all Becoming easily annoyed or irritable: 0 = Not at all Feeling afraid as if something awful might happen: 0 = Not at all Total JOYCE-7 score (0-4 normal; 5-9 mild; 10-14 moderate; 15-21 severe): 0 Source: Developed by Drs. Kodak Caballero, Jamee Oh, Tavo Cabezas and colleagues, with an educational meliton from [employer]. JOYCE-7 Assessment Billing JOYCE-7 Assessment Tool: JOYCE-7 Assessment 39755 Review of Systems Const Denies body aches, Denies chills, Denies fever(s) and Denies poor appetite Eyes Reports no additional complaints ENT Reports no additional complaints Card Denies chest pain and Denies dyspnea Resp Denies cough and Denies dyspnea GI Reports no additional complaints Details: Denies any urinary complaints Musc Reports abnormal gait and Reports back pain Skin/Breast Reports system reviewed and no additional complaints, except as documented Neuro Reports abnormal gait Psych Reports no additional complaints Physical exam (Primary Care) Vital Signs: Last Vital Signs Temp 97.1 F 08/04/24 13:16 Pulse 82 08/04/24 13:16 BP 120/88 08/04/24 13:16 Pulse Ox 98 08/04/24 13:16 Oxygen Delivery Method Room Air 08/04/24 13:16 BMI result Body Mass Index 28.0 Tobacco/Smoking Status: Tobacco use Status Tobacco use date assessed 08/04/24 08/04/24 13:21 Patient Tobacco Use Status Never used Tobacco 08/04/24 13:20 e-Cigarette/Vaping Use Never Used 08/04/24 13:20 PHQ-9: PHQ-9 Score PHQ-9: Total score 0 08/04/24 13:20 Depression Screening Interpretation: Negative Thrive Assessment: Date of Thrive Assessment Date Thrive assessed 08/04/24 08/04/24 13:20 Currently or been in a relationship where the following occur: No concerns reported Const General: cooperative, healthy appearing, comfortable and no acute distress Orientation/consciousness: patient oriented x3 HENMT Head: Yes normocephalic Ears: hearing grossly normal bilaterally General nose exam: Normal external nose present Eyes General: appearance normal, both eyes and all related structures Conjunctivae: conjunctivae normal Neck Neck: Yes full ROM and Yes no lymphadenopathy Resp Effort & Inspection: normal respiratory effort Auscultation: clear to auscultation bilaterally, no crackles, no rales, no rhonchi and no wheezes Cardio Rate: regular rate Rhythm: regular rhythm Back/Spine/Pelvis Other: Tenderness to palpation of bilateral lumbar paraspinal muscles Skin General skin exam: no rashes or lesions noted Neuro General: patient oriented x3 Gait exam (Neuro): Normal gait present Extrem General: Yes normal to inspection, Yes full ROM and No edema Psych Affect: normal affect Attitude: cooperative Insight: Good insight present (Psych) Judgement: Good judgement present (Psych) Coding Level of Care Code Est Pt Level 3 (59979) Diagnoses Lumbar strain S39.012A Additional Codes JOYCE-7 Assessment Billing - JOYCE-7 Assessment Tool: JOYCE-7 Assessment 73309 ([id number]) PHQ-9 - 44989 - PHQ-9 Billing: Yes ([id number]) Assessment & Plan Assessment & Plan (1) Lumbar strain: Code(s): S39.012A - Strain of muscle, fascia and tendon of lower back, initial encounter Category: Medical Plan: Patient having continued pain from lumbar strain. Initially was seen in the ED Thursday for this concern with negative workup. Refilled ibuprofen and methocarbamol today and send prescription for lidocaine as well. Patient to return to work next week advised to reach out if pain persists as he may need physical therapy. Also encouraged gentle stretching and advised patient to rest but avoid sergey ining sedentary to avoid back stiffness. Plan This note was constructed using voice recognition software. 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 Total time spent caring for the patient today was 20 minutes. This includes time spent before the visit reviewing the chart, time spent during the visit, and time spent after the visit and documentation. Medications: New lidocaine 5% leave on most painful area for up to 12 hrs 1 patch topical DAILY 15 ea 0RF Refilled ibuprofen 600 mg PO Q6H PRN 30 tabs 0RF pain methocarbamol 750 mg PO Q8H PRN 10 tabs 0RF pain Discontinued cyclobenzaprine Discontinued Reason: Patient no longer taking 10 mg PO Q8H PRN 15 tabs 0RF muscle spasm
== END 2024-08-04 13:46 | disposition home or self-care (01) ==
PROVIDERS: PCP Physician Assistant
DX: S39.012A Strain of muscle, fascia and tendon of lower back, initial encounter (principal)

== ENCOUNTER → 2024-08-04 13:13 | Outpatient (BNVA) | payer BC, SELFPAY | PROVIDERS: PCP Physician Assistant | DX: S39.012D Strain of muscle, fascia and tendon of lower back, subsequent encounter (principal) | CPT/HCPCS: 96127 ==

== ENCOUNTER 2024-08-17 10:10 | Outpatient (REF) | payer BC, SELFPAY ==
--- NOTE | ~2024-08-17 | CT_ITS ---
EXAMINATION: CT INTERNAL AUDITORY CANALS, BILATERALLY. CLINICAL INFORMATION: Sensorineural hearing loss, bilaterally. Retracted tympanic cavity, right side. Concerning schwannoma. COMPARISON: No priors. TECHNIQUE: Continues axial images through the temporal bone/petrous bone using 0.6 mm collimation with bone and soft tissue algorithm. Sagittal and coronal reformatted images acquired through the temporal bones. This CT examination was performed using dose optimization techniques as appropriate, variously including the following: Automatic exposure control Adjustment of MA and/or KV according to patient size Use of interactive reconstruction technique. DLP: 260 mG centimeter. FINDINGS: RIGHT TEMPORAL/PETROUS BONE: External auditory canal: Intact and aerated without focal stenosis or soft tissue lesion. Tympanic membrane: Not thickened. Ossicles: Intact and articulated. Tympanic cavity: Well pneumatized and aerated. No soft tissue lesion. Sinus tympani: Well pneumatized and aerated. Facial fossa: Well pneumatized. Technique tympani: Intact. Cochlea: Intact with normal turns. Vestibule: Intact. Semicircular canals: Intact. Mastoid antrum, aditus at antrum and mastoid air cells: Well pneumatized and aerated. Internal auditory canal: Intact. Labyrinthine, geniculate, tympanic and mastoid segments of the fallopian canal/facial nerve canal: Intact. Cochlear and vestibular aqueducts: Not enlarged. Carotid canal: Intact. Jugulare foramen: Intact. Temporomandibular joint: Intact. LEFT TEMPORAL/PETROUS BONE: External auditory canal: Intact and aerated without focal stenosis or soft tissue lesion. Tympanic membrane: Not thickened. Ossicles: Intact and articulated. Tympanic cavity: Well pneumatized and aerated. No soft tissue lesion. Sinus tympani: Well pneumatized and aerated. Facial fossa: Well pneumatized. Technique tympani: Intact. Cochlea: Intact with normal turns. Vestibule: Intact. Semicircular canals: Intact. Mastoid antrum, aditus at antrum and mastoid air cells: Well pneumatized and aerated. Internal auditory canal: Intact. Labyrinthine, geniculate, tympanic and mastoid segments of the fallopian canal/facial nerve canal: Intact. Cochlear and vestibular aqueducts: Not enlarged. Carotid canal: Intact. Jugulare foramen: Intact. Temporomandibular joint: Intact. Ancillary findings: Mild prominent right middle turbinate with mucosal thickening and secretions in the right nasal cavity. Levoconvex nasoseptal deviation. CT/CT internal auditory canals BI IMPRESSION: Normal temporal bones. If patient's symptoms persists and concern recommend dedicated IV contrast enhanced MRI brain and IAC protocol Electronically signed by: Michael Jones MD 08/17/2024 11:21 AM [facility]
== END 2024-08-17 10:11 | disposition home or self-care (01) ==
LOC: HO.CT 10:10
PROVIDERS: PCP Physician Assistant; Visit Provider Physician Assistant
DX: H73.899 Other specified disorders of tympanic membrane, unspecified ear (principal); H90.3 Sensorineural hearing loss, bilateral
CPT/HCPCS: 70480

== ENCOUNTER → 2024-08-17 10:12 | Outpatient (BNV) | payer BC, SELFPAY | PROVIDERS: PCP Physician Assistant; Visit Provider Radiology Diagnostic Radiology | DX: M25.512 Pain in left shoulder (principal); H90.3 Sensorineural hearing loss, bilateral | CPT/HCPCS: 70480; 73030 ==

== ENCOUNTER 2024-08-17 17:27 | Emergency (ER) | payer BC, SELFPAY ==
--- NOTE | ~2024-08-17 | XR_ITS ---
CLINICAL HISTORY: fall onto shoulder, hx of surgery Left shoulder three views Comparison: None Findings: No acute fracture or dislocation identified. No acute focal bony abnormality. Left clavicle fracture repair hardware. Impression: No acute bony abnormality This document has been electronically signed by: Srikanth Bauman MD on 08/17/2024 19:51:46
[2024-08-17 18:35] VITALS: BP 127/78; PULSE 91; RESP 19; TEMP 36.6; O2SAT 98; BMI 27.1
--- NOTE | 2024-08-17 18:40 | ED.GENADULT ---
HPI - General Adult General Chief complaint: Upper Respiratory Symptoms Stated complaint: L shoulder injury Time Seen by Provider: 08/17/24 20:11 Source: patient Mode of arrival: ambulatory Limitations: no limitations History of Present Illness HPI narrative: This is a 59-year-old man with a past medical history of sensorineural hearing loss, nephrolithiasis, previous left shoulder surgery who presents for evaluation of left shoulder pain after a fall. Patient states that he was walking, slipped and fell onto his left shoulder. Patient reports pain in his left shoulder since that time. He he states taking 600 mg ibuprofen earlier this morning. He states no associated head strike or loss of consciousness with this fall. He states no associated chest pain, lightheadedness, palpitations or dyspnea. He states no headache, neck pain, extremity paresthesias or back pain. He states no abdominal pain or nausea/vomiting. He states taking no blood thinning medications. Related Data Previous Rx's ?Medication ?Instructions ?Recorded ibuprofen 600 mg tablet 600 mg PO Q6H PRN pain #30 tabs 08/04/24 lidocaine 5 % topical patch 1 patch topical DAILY #15 ea 08/04/24 methocarbamol 750 mg tablet 750 mg PO Q8H PRN pain #10 tabs 08/04/24 Allergies Allergy/AdvReac Type Severity Reaction Status Date / Time No Known Allergies Allergy Verified 08/17/24 18:38 [No Known Allergies*] Review of Systems Review of Systems: ROS as per HPI [facility] Past Medical History Medical History H/O nephrolithotomy with removal of calculi Surgical History H/O hand surgery Family History Family History Father Cancer Lung cancer Mother ESRD (end stage renal disease) Social History Social History Housing: House Alcohol intake: former Patient Tobacco Use Status: Never used Tobacco e-Cigarette/Vaping Use: Never Used Advance Directives: No Advance Directives Information Provided: Yes Do you have a plan to hurt others: No Plan service: No Current occupational status: employed 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 Cognitive needs: No Hearing needs: No Vision needs: No Physical Exam ED Vital Signs: Vital Signs - 24 hr 08/17/24 18:35 08/17/24 20:19 Temperature 98 F 97.5 F Pulse Rate 91 82 Respiratory Rate 19 16 Blood Pressure 127/78 149/63 H Pulse Oximetry 98 97 Oxygen Delivery Method Room Air BMI result Body Mass Index 27.1 Gen: NAD, AOx3 HEENT: NCAT, EOMI, normal conjunctiva CV: RRR, 2+ bilateral radial pulses Pulm: CTAB, no increased work of breathing GI: Soft, NTND, no rebound, guarding or rigidity MSK: No midline vertebral tenderness to palpation, full active range of motion with neck flexion/extension and lateral 45 degree rotation, 5/5 bilateral upper extremity body maker machine setter strength, limited active range of motion with left shoulder extension and abduction, intact motor function to the left upper extremity to the radial/ulnar/median/anterior interosseous nerves Neuro: Grossly non focal, GCS 15, sensation intact to light touch in bilateral upper extremity dermatomes C6-C8 and overlying the left deltoid Course Course Course Narrative: This is a Rapid Medical Examination (RME) performed by Lupe Lindsay PA-C in triage. Full HPI, ROS, assessment and treatment plan per primary provider in the Main ED. 59 yo male here for eval of left shoulder pain s/p slip and fall yesterday. no head strike. no loc. no thinners. hx of surgery on left shoulder. Plan: xrs Medical Decision Making Medical Decision Making MDM Narrative: Differential diagnosis includes, but is not limited to strain, sprain, fracture. Patient is afebrile and hemodynamically stable on room air. Exam is benign and reassuring. The affected left upper extremity is neurovascularly intact. I reviewed x-rays as below. Patient was treated supportively with 600 mg p.o. ibuprofen. He is provided sling for comfort. On re-examination, patient is well-appearing and in no acute distress. ?There is no indication for further emergent evaluation in this otherwise well-appearing patient as above. ?Patient is provided written and verbal instructions, orthopedic surgery referral, educational materials, recommendations for outpatient follow-up, strict return precautions and teach back is performed. ?Patient states understanding and agreement with plan of care. ?Patient is discharged home in stable and improved condition. Admission/Observation Consideration of admission/observation: Escalation of care including admission/observation considered Independent Interpretation I performed an independent interpretation of an: Plain X-Ray Interpretation: I independently reviewed and interpreted the patient's left shoulder x-ray, which demonstrates no acute fracture or dislocation Radiology Impression Discussion of test interpretation with radiology: I have reviewed the radiologist's reading. Radiologist Impression: Impression: No acute bony abnormality This document has been electronically signed by: Srikanth Bauman MD on 08/17/2024 19:51:46 Dictated By: Srikanth Bauman MD Signed By: <Electronically signed by Srikanth Bauman MD in OV> 08/17/241951 Discharge Plan Discharge Clinical Impression: Sprain of left shoulder Patient Disposition: Home, Self-Care Instructions: Shoulder Sprain (ED) Additional Instructions: You were seen and evaluated in the emergency room. Your vital signs were reassuring. Your x-rays showed no broken or dislocated bones. You were given a sling to wear for comfort. You may remove when resting. Please continue wearing the sling until you follow-up with orthopedic surgery in the next 1-2 weeks. Please take 600 mg ibuprofen with food and water every 6 hours for pain relief. You may take 1000 mg Tylenol every 8 hours as needed for additional pain relief. Please ice the area of pain 20 minute at a time with 20 minutes in between. Please do this 3 times in a row. Please repeat this cycle several times a day. Please take care to protect her skin from the eyes. Please follow-up with your primary care doctor in the next 5-7 days. ? Please follow-up with orthopedic surgery in the next 1-2 weeks. Please call for an appointment. Please return to the emergency room if you develop any worsening symptoms or new injuries. Prescriptions: No Action methocarbamol 750 mg tablet 750 mg PO Q8H PRN (Reason: pain) Qty: 10 0RF lidocaine 5 % adhesive patch,medicated 1 patch topical DAILY Qty: 15 0RF Rx Instructions: leave on most painful area for up to 12 hrs ibuprofen 600 mg tablet 600 mg PO Q6H PRN (Reason: pain) Qty: 30 0RF Referrals: [facility] Orthopedic Surgeons [Provider Group] Print Language: Arabic
[2024-08-17 20:19] VITALS: BP 149/63; PULSE 82; RESP 16; TEMP 36.4; O2SAT 97
[2024-08-17] MEDS: Ibuprofen 600 MG TABLET PO (21:06)
[2024-08-17 21:25] VITALS: BP 155/93; PULSE 77; RESP 16; TEMP 36.1; O2SAT 98
== END 2024-08-17 21:26 | disposition home or self-care (01) ==
PROVIDERS: Emergency Provider Emergency Medicine; PCP Physician Assistant
DX: S43.52XA Sprain of left acromioclavicular joint, initial encounter (principal); M25.512 Pain in left shoulder; W19.XXXA Unspecified fall, initial encounter; Y93.9 Activity, unspecified; Y92.89 Other specified places as the place of occurrence of the external cause; Y99.8 Other external cause status
CPT/HCPCS: 73030; 99283

== ENCOUNTER 2024-09-01 08:45 | Outpatient (AMB) | payer BC, SELFPAY ==
--- OUTSIDE RECORDS SUMMARY | 2024-09-01 08:58 | XMS_ITS | Encounter Summary ---
Author Organization [facility] Address [address] [place] [address] 7 [address] [place] [id number] Care Team Providers Care Race Steward Name Role Phone Unavailable Primary Care Provider Unavailabl e Encounter Details Date Type Department Care Team (Latest Contact Info) Description 05/03/2021 Abstract [facility] CONVERSIONS Dental, Provider, DDS Social History Tobacco Use Types Packs/Day Years Used Date Smoking Tobacco: Never Assessed Sex and Gender Information Value Date Recorded Sex Assigned at Male 05/19/2022 10:32 AM EDT Legal Sex Male 10:32 AM EDT Gender Identity Choose not to disclose 10:32 AM EDT Sexual Orientation Choose not to disclose 2021 10:32 AM EDT documented as of this encounter Plan of Treatment Not on file documented as of this encounter Visit Diagnoses Not on filedocumented in this encounter
--- OUTSIDE RECORDS SUMMARY | 2024-09-01 08:58 | XMS_ITS | Encounter Summary ---
Author Organization [facility] Address [address] [place] [address] Care Team Providers Care Mitering Machine Operator Name Role Phone Unavailable Primary Care Provider Unavailabl e Encounter Details Date Type Department Care Team (Late st Contact Info) Description 07/31/2022 Abstract [facility] ADULT DENTAL [address], [place] [phone] Mani Saenz DDS [address], [place] [phone] Social History Tobacco Use Types Packs/Day Years [...]
--- OUTSIDE RECORDS SUMMARY | 2024-09-01 08:58 | XMS_ITS | Clinical Summary ---
Author Organization [facility] Address [address] [place] [address] [address] [place] [address] Care Team Providers Care Tax Audit Manager Name Role Phone Unavailable Primary Care Provider Unavailabl e Social History Tobacco Use Types Packs/Day Years Used Date Smoking Tobacco: Never Assessed Sex and Gender Information Value Date Recorded Sex Assigned at Male 05/19/2022 10:32 AM EDT Legal Sex Male 10:32 AM EDT Gender Identity Choose not to disclose 10:32 AM EDT Sexual Orientation Choose not to disclose 2021 10:32 AM EDT Plan of Treatment Health Maintenance Due Date Last Done Comments CT Colonography 1966 Colonoscopy 1966 Colorectal Cancer Screening 1966 Depression Screening 1966 FIT DNA/Cologuard 1966 FIT 1966 FOBT 1966 Lipid Panel 1966 Sigmoidoscopy 1966 Alcohol/Substance Use Screening 1978 Tobacco Screening 1978 DTaP/Tdap/Td Vaccines (1 - Tdap) 1985 Hepatitis B Vaccines (1 of 3 - 19+ 3-dose series) 1985 Pneumococcal Vaccine: 50+ Years (1 of 1 - PCV) 2016 Zoster Vaccines (1 of 2) 2016 Dental X-Ray: Bitewings 09/17/2018 09/16/2017 Dental X-Ray: Full Mouth 09/17/2020 09/16/2017 Dental Oral Exam 11/02/2021 05/03/2021, 09/16/2017 Dental Prophylaxis 11/02/2021 05/03/2021, 02/03/2018 COVID-19 Vaccine ( - 2023-2 5 season) 2024 Influenza Vaccine (#1) 2024 RSV Patients and Patients Aged 60 years or older (1 - 1-dose 75+ series) 2041 HIB Vaccines Aged Out No longer eligi ble based on patient's age to complete this topic HPV Vaccines Aged Out No longer eligi ble based on patient's age to complete this topic Hepatitis A Vaccines Aged Out No long er eligible based on patient's age to complete this topic IPV Vaccines Aged Out No longer eligi ble based on patient's age to complete this topic Meningococcal Vaccine Aged Out No whitney chhaya eligible based on patient's age to complete this topic Pneumococcal Vaccine: Pediatrics (0 to 5 Years) and At-Risk Patients (6 to 49) Years) Aged Out No longer eligible b ased on patient's age to complete this topic RSV under 20 months Aged Out No longe r eligible based on patient's age to complete this topic Rotavirus Vaccines Aged Out No longer eligible based on patient's age to complete this topic Procedures Procedure Name Priority Date/Time Associated Diagnosis Comments PROPHYLAXIS - ADULT Routine 05/03/2021 1 2:00 AM EDT PERIODIC ORAL EVALUATION - ESTABLISHED PATIENT Routine 05/03/2021 12:00 AM EDT INTRAORAL - COMPLETE SERIES OF RADIOGRAPHIC IMAGES Routine 09/16/2017 12:00 AM EST from Last 3 Months or Most Recently Relevant to Health Maintenance
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
[2024-09-01 09:00] VITALS: BMI 27.1
== END 2024-09-01 09:16 | disposition home or self-care (01) ==
PROVIDERS: PCP Physician Assistant; Visit Provider Orthopaedic Surgery
DX: M25.512 Pain in left shoulder (principal); W00.0XXA Fall on same level due to ice and snow, initial encounter
CPT/HCPCS: 99203

== ENCOUNTER 2024-09-06 15:32 | Outpatient (AMB) | payer BC, SELFPAY ==
--- NOTE | 2024-09-06 15:40 | A.OFFPC_ITS ---
Vital Signs 09/06/24 15:41 Height 5 ft 8 in Weight 188 lb 2 oz BMI 28.6 BP 110/64 Blood Pressure Location Rt brachial Position Sitting Pulse 93 Pulse Source Pulse Oximeter Temp 96.8 F Temp Source Temporal Artery Scan Pulse Oximetry (%) 96 Oxygen Delivery Method Room Air Intake Visit Reasons: Shoulder Pain Intake Note: Patient is here to follow up on Left Shoulder pain. Meteorology Teacher Required: No Marketing Designer: Not Required per policy Accompanied by: Self / Same As Patient Allergies No Known Allergies [No Known Allergies*] Allergy (Verified 09/06/24 15:57) Medication List - Last Reconciled 09/06/24 by SKYE Wise ibuprofen 600 mg PO Q6H PRN Tobacco use date assessed: 09/06/24 Dental Screening Dental Screen Date: 09/06/24 Did you have a dental visit in the last 12 months?: No Did you have a dental problem in the last 6 months where you did not have access to dental care?: No Was dental information given to patient?: Patient has dentist HPI Shoulder Pain HPI Details The patient is a 59 y/o male with significant past medical history of sensorineural hearing loss of both ears, BPH, and lumbar strain The patient is present with left shoulder pain The patient reports that he had surgery on his left shoulder about 12 years ago Reports he has a plate and screws in the left shoulder He reports that 3 weeks ago he felt and outstretched his left arm to brace himself. He reports that after that day he has been in pain. Reports using Ibuprofen 600mg without any relief especially at night He reports that a xray was done of the shoulder-review the xray-noted no acute findings The patient reports that he has an appt with Dr. Tang on the to discuss treatment option and possible an MRI to further evaluate He is currently wearing a sling and is reluctant to move arm +CMS in the fingers of the left arm . 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 How many drinks containing alcohol do you have on a typical day when you are drinking?: 1 or 2 3. How often do you have six or more drinks on one occasion?: Never Total Score: 0 JOYCE-7 AMB Questionnaire JOYCE-7 Date JOYCE - 7 assessed: 08/04/24 Source: Developed by Drs. Kodak Caballero, Jamee Oh, Tavo Cabezas and colleagues, with an educational meliton from [employer]. Review of Systems Const Details: Denies chills, Denies fatigue, Denies fever(s), Denies headache(s) and Denies weakness HEENT Denies change in vision, Denies dizziness, Denies headache(s), Denies hearing loss, Denies nasal congestion, Denies sinus pain, Denies sinus pressure and Denies sore throat Card Denies chest pain, Denies lightheadedness, Denies dyspnea and Denies other (palpitations) Resp Denies cough, Denies dyspnea and Denies wheezing GI Denies abdominal pain, Denies melena, Denies hematochezia, Denies change in bowel habits, Denies dyspepsia and Denies nausea Denies hematuria and Denies dysuria Musc Denies abnormal gait, Denies myalgias, +arthralgias left shoulder pain, Denies numbness and Denies tingling Skin/Breast Denies rash, Denies unusual bruising and Denies wounds Physical exam (Primary Care) Vital Signs: Last Vital Signs Temp 96.8 F 09/06/24 15:41 Pulse 93 09/06/24 15:41 BP 110/64 09/06/24 15:41 Pulse Ox 96 09/06/24 15:41 Oxygen Delivery Method Room Air 09/06/24 15:41 BMI result Body Mass Index 28.6 Tobacco/Smoking Status: Tobacco use Status Tobacco use date assessed 09/06/24 09/06/24 15:47 Patient Tobacco Use Status Never used Tobacco 09/06/24 15:47 e-Cigarette/Vaping Use Never Used 09/06/24 15:47 Thrive Assessment: Date of Thrive Assessment Date Thrive assessed 08/04/24 09/06/24 15:47 Const Other: General: no acute distress, well developed, alert and awake Nutritional Appearance: well nourished Orientation/consciousness: patient oriented x3 HENMT Head: Yes normocephalic and Yes atraumatic Eyes Pupils: Equal, round and reactive pupils present and Pupil accommodation reflex normal EOM: EOMs intact bilaterally Neck Neck: Yes normal visual inspection, Yes no lymphadenopathy and Yes trachea midline Thyroid: Thyroid normal Chest Chest palpation & inspection: normal inspection of the chest Resp Effort & Inspection: normal respiratory effort Auscultation: clear to auscultation bilaterally Cardio Rate: regular rate Rhythm: regular rhythm Heart sounds: S1 normal heart sound present, S2 normal heart sound present, no gallops, no murmurs and no rubs GI Palpation (GI): No Abdominal aortic bruit present, Soft to palpation, nontender, No hepatosplenomegaly present and No Rebound tenderness present Auscultation: normal bowel sounds General: Yes no CVA tenderness Back/Spine/Pelvis Back: no CVA tenderness Left: see HPI Skin General: warm and dry. Normal skin color. Normal skin turgor Lesions: no lesionss Nails: normal Extrem General: Yes normal to inspection, No edema and No calf tenderness t Coding Level of Care Code Est Pt Level 3 (84180) Diagnoses Acute pain of left shoulder M25.512 Chronicity: acute Time Spent (min) 29 Assessment & Plan Assessment & Plan (1) Left shoulder pain: Code(s): M25.512 - Pain in left shoulder Category: Medical Qualifiers: Chronicity: acute Qualified Code(s): M25.512 - Pain in left shoulder Plan: The patient reports post left shoulder surgery that was re-aggravated after falling. The patient was seen by orthopedics. Xray was done that showed no acute changes. He reports plans to possible do a MRI to further evaluate Meloxicam 15 mg daily ordered-discussed with patient that he cannot take the ibuprofen when taking this medication Methocarbamol 750 mg Q8hrs ordered. Discussed with patient that this medication might make him drowsy and is best to take at night or during the day if he planning on staying in Medications: New methocarbamol 750 mg PO Q8H 90 tabs 1RF meloxicam 15 mg PO DAILY 30 tabs 2RF
[2024-09-06 15:41] VITALS: BP 110/64; PULSE 93; TEMP 36; O2SAT 96; BMI 28.6
--- OUTSIDE RECORDS SUMMARY | 2024-09-06 16:24 | XMS_ITS | Encounter Summary ---
Author Organization [employer] [facility] Address [address] [place] [address] Care Team Providers Care Healthcare Science Specialist Name Role Phone Unavailable Primary Care Provider Unavailabl e Encounter Details Date Type Department Care Team (Late st Contact Info) Description 07/31/2022 Abstract [facility] ADULT DENTAL [address] [place], [place] [phone] Mani Saenz DDS [address] [place], [place] [phone] Social History Tobacco Use Types Packs/Day Years [...]
--- OUTSIDE RECORDS SUMMARY | 2024-09-06 16:24 | XMS_ITS | Encounter Summary ---
Author Organization [facility] [facility] Address [address] [place] [address] 7 h Floor [place] [id number] Care Team Providers Care Bridal Consultant Name Role Phone Unavailable Primary Care Provider Unavailabl e Encounter Details Date Type Department Care Team (Latest Contact Info) Description 05/03/2021 Abstract [facility] CONVERSIONS Dental, Provider, DDS Social History [...]
--- OUTSIDE RECORDS SUMMARY | 2024-09-06 16:24 | XMS_ITS | Clinical Summary ---
Author Organization [employer] [facility] Address [address] [place] [address] [address] [place] [address] Care Team Providers Care Engineer Soils Name Role Phone Unavailable Primary Care Provider [...]
== END 2024-09-06 16:11 | disposition home or self-care (01) ==
PROVIDERS: PCP Physician Assistant
DX: M25.512 Pain in left shoulder (principal)

== ENCOUNTER → 2024-09-06 15:32 | Outpatient (BNVA) | payer BC, SELFPAY | PROVIDERS: PCP Physician Assistant ==

== ENCOUNTER 2024-10-13 10:24 | Outpatient (AMB) | payer BC, SELFPAY ==
[2024-10-13 10:40] VITALS: BMI 28.6
--- NOTE | 2024-10-13 10:40 | A.OFFVIS_ITS ---
Vital Signs 10/13/24 10:40 Height 5 ft 8 in Weight 188 lb BMI 28.6 Intake Visit Reasons: OV- Left shoulder pain Intake Note: Fahad is a 59 year old right hand dominant male who presents today for a follow up of his right shoulder. He was last seen with Dr. Chapa where the patient reports that he has had chronic discomfort from the presence of the surgical plate from previous clavicle orif He recently fell onto his left shoulder. Dr. Chapa referred his to discuss possible surgical intervention. No imaging done. Allergies No Known Allergies [No Known Allergies*] Allergy (Verified 09/06/24 15:57) HPI HPI OV- Left shoulder pain: Details: Fahad is a 59 year old right hand dominant male who presents today for a follow up of his right shoulder. He was last seen with Dr. Chapa where the patient reports that he has had chronic discomfort from the presence of the surgical plate from previous clavicle orif He recently fell onto his left shoulder. Dr. Chapa referred his to discuss possible surgical intervention. No imaging done. The patient is a 59-year-old male presenting with a rotator cuff injury and persistent post-surgical shoulder pain. He underwent shoulder surgery for a fracture 13-14 years ago and noted recent escalation in pain following a fall in July. The pain is severe, especially during arm elevation, and has lasted for over two months, resulting in functional limitations and stiffness. The shoulder plate is not implicated, as imaging suggests it is intact. Environmental factors like cold exacerbate symptoms. 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 He has not yet pursued physical therapy or medications regularly, though ibuprofen was recommended. 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 I can not fully evaluate his rotator cuff. He has periscapular tenderness with medial scapular winging and difficulty with active abduction. He can actively abduct about 30 degrees and forward flex about 50 degrees. Sensation intact to light touch of the lateral deltoid. Moving his elbow and fingers normally. Results Reviewed Results Reviewed: I personally reviewed relevant radiographs. - Imaging: X-ray showed the clavicular plate in good position without hardware complications. Assessment & Plan Assessment & Plan (1) Internal derangement of left shoulder: Code(s): M24.812 - Other specific joint derangements of left shoulder, not elsewhere classified Category: Medical Plan: During the visit, I discussed with the patient that the primary issue appears to be related to the rotator cuff and not the clavicular hardware as imaging shows the plate is intact. His pain is not over the clavicle. He has difficulty with shoulder range of motion and pain. I proposed an MRI to gain a clearer insight into the extent of the possible rotator cuff injury. The importance of initiating physical therapy was emphasized, given the risks of persistent stiffness leading to difficulty even with surgical correction. I recommended ibuprofen for pain management, discussing its application and dietary considerations. I explained that surgical intervention, if deemed necessary post-MRI, would require improved shoulder mobility owing to the current stiffness. Prognosis, potential surgical considerations, and implications of various treatment strategies were outlined. We agreed upon a follow-up after acquiring the MRI results to evaluate further treatment options and the current status of the injury. The patient's shoulder pain and suspected rotator cuff injury require further evaluation with an MRI to assess the extent of the injury. Initiating physical therapy is pivotal to improve range of motion and ease muscle spasms. I advised taking ibuprofen 800 mg, three times daily with food, for pain management. Surgery may be considered post-physical therapy if the MRI indicates severe injury. The patient was informed about avoiding heavy lifting, focusing on posture and careful shoulder usage, recognizing the risk of surgery with the current mobility. An MRI has been ordered, and the patient is encouraged to stay active within a non-weight bearing limit. Patient was informed and verbally consented to the use of an ambient scribe for clinic note documentation during this visit. - Schedule an MRI as soon as possible, the office will contact you with details. - Begin physical therapy to improve shoulder mobility and reduce stiffness. - Take ibuprofen 800 mg, three times daily with meals to manage pain. - Avoid heavy lifting and focus on maintaining good posture. - Perform non-weight bearing shoulder exercises, especially gentle stretching against a wall in the shower. - Follow up with the office after MRI completion to discuss results and additional treatment. - Contact us if there are worsening symptoms or new concerns. Orders: Orders MR shoulder LT wo con Today M24.812 - Other specific joint derangements of left shoulder, not elsewhere classified PT Evaluation and Treatment Today M24.812 - Other specific joint derangements of left shoulder, not elsewhere classified Coding Level of Care Code Est Pt Level 4 (66874) Diagnoses Internal derangement of left shoulder M24.812
== END 2024-10-13 11:20 | disposition home or self-care (01) ==
LOC: HO.HOS 10:25
PROVIDERS: PCP Physician Assistant; Visit Provider Orthopaedic Surgery
DX: M24.812 Other specific joint derangements of left shoulder, not elsewhere classified (principal)
CPT/HCPCS: 99214

== ENCOUNTER → 2024-10-13 10:24 | Outpatient (BNVA) | payer BC, SELFPAY | PROVIDERS: PCP Physician Assistant; Visit Provider Orthopaedic Surgery ==

== ENCOUNTER 2024-11-01 09:40 | Outpatient (REF) | payer BC, SELFPAY ==
--- NOTE | ~2024-11-01 | MR_ITS ---
CLINICAL HISTORY: M24.812 - Other specific joint derangements of left shoulder, not elsewh... MR left shoulder Comparison: CR - XR SHOULDER LT MIN 2V - 08/17/24 19:05 EST Findings: Motion limited exam. No acute fracture or dislocation of the osseous structures. Status post fixation of the left clavicle. There is artifact secondary to metallic hardware. Mild amount of cystic change and edema in the humeral head of the posterior aspect. The acromioclavicular joint is intact. Mild osteophytosis. No joint effusion. There is fluid in the subacromial/subdeltoid bursa. There is increased signal in the supraspinatus tendon with complete tear and retraction. There is increased signal in the infraspinatus tendon with partial tear. No retraction. There is increased signal in the subscapularis tendon without tear. No muscular atrophy. Teres minor is unremarkable. Motion limits evaluation of the labrum. There is increased signal in the superior labrum without a definitive tear identified. The biceps tendon and bicipital-labral anchor are intact. There is fluid in the tendon sheath of the long head of the biceps tendon. Coracohumeral ligament is intact. The coracoacromial ligament is not well evaluated due to metallic artifact. Cutaneous and subcutaneous tissues are normal. The quadrilateral space is unremarkable. Impression: Complete tear of the supraspinatus tendon with retraction. No muscular atrophy. Fluid in the subacromial/subdeltoid bursa. Infraspinatus tendinopathy with partial tear. Subscapularis tendinopathy. Biceps tenosynovitis. This document has been electronically signed by: Kyara Girard MD on 11/02/2024 21:46:14
--- OUTSIDE RECORDS SUMMARY | 2024-11-01 10:56 | XMS_ITS | Clinical Summary ---
Author Organization [employer] [facility] Address [address] [place] [address] [address]t [place] [address] Care Team Providers Care Reinstatement Clerk Name Role Phone Unavailable Primary Care Provider [...]
--- OUTSIDE RECORDS SUMMARY | 2024-11-01 10:56 | XMS_ITS | Encounter Summary ---
Author Organization [employer] [facility] Address [address] [place] [address] Care Team Providers Care Deep Well Contractor Name Role Phone Unavailable Primary Care Provider Unavailabl e Encounter Details Date Type Department Care Team (Late st Contact Info) Description 07/31/2022 Abstract [facility] ADULT DENTAL [address] [place], [place] [phone] Mani Saenz DDS [address] [place], [place] [phone] Social History Tobacco Use Types Packs/Day Years [...]
--- OUTSIDE RECORDS SUMMARY | 2024-11-01 10:56 | XMS_ITS | Encounter Summary ---
Author Organization [employer] [facility] Address [address] [place] [address] 7 h [address] [place] [id number] Care Team Providers Care Senior Engineering Specialist Name Role Phone Unavailable Primary Care Provider Unavailabl e Encounter Details Date Type Department Care Team (Latest Contact Info) Description 05/03/2021 Abstract [facility] CONVERSIONS Dental, Provider, DDS Social History Tobacco [...]
== END 2024-11-01 09:41 | disposition home or self-care (01) ==
LOC: HO.MRI 09:40
PROVIDERS: PCP Physician Assistant; Visit Provider Orthopaedic Surgery
DX: M24.812 Other specific joint derangements of left shoulder, not elsewhere classified (principal); M75.22 Bicipital tendinitis, left shoulder
CPT/HCPCS: 73221

== ENCOUNTER → 2024-11-01 09:51 | Outpatient (BNV) | payer BC, SELFPAY | PROVIDERS: PCP Physician Assistant; Visit Provider Radiology Diagnostic Radiology | DX: S46.012A Strain of muscle(s) and tendon(s) of the rotator cuff of left shoulder, initial encounter (principal); M75.22 Bicipital tendinitis, left shoulder | CPT/HCPCS: 73221 ==

== ENCOUNTER 2024-11-14 12:21 | Outpatient (AMB) | payer BC, SELFPAY ==
--- NOTE | 2024-11-14 12:34 | A.OFFVIS_ITS ---
Intake Visit Reasons: OV- Left shoulder MRI review Intake Note: Fahad is a 59 year old right hand dominant male who presents today for a right shoulder MRI Review. Impression: Complete tear of the supraspinatus tendon with retraction. No muscular atrophy. Fluid in the subacromial/subdeltoid bursa. Infraspinatus tendinopathy with partial tear. Subscapularis tendinopathy. Biceps tenosynovitis. This document has been electronically signed by: Kyara Girard MD on 11/02/2024 21:46:14 Allergies No Known Allergies [No Known Allergies*] Allergy (Verified 09/06/24 15:57) HPI HPI OV- Left shoulder MRI review: Details: Xochitl is a 59-year-old who comes in for MRI review. He injured his left shoulder last winter when he fell on ice and reached out his arm and there was an axial load applied up into his shoulder and he felt immediate pain in his been unable to use his arm normally ever since. He initially thought it might be from his prior clavicle ORIF but his problem was shoulder related and MRI revealed a full-thickness complete tear of supraspinatus without atrophy [facility] Medical History H/O nephrolithotomy with removal of calculi Surgical History H/O hand surgery Family History Father Cancer Lung cancer Mother ESRD (end stage renal disease) Social History Housing: House Alcohol intake: former Patient Tobacco Use Status: Never used Tobacco e-Cigarette/Vaping Use: Never Used Second Hand Smoke Exposure: No service: No Current occupational status: employed 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 Complete tear of the supraspinatus tendon with retraction. No muscular atrophy. Fluid in the subacromial/subdeltoid bursa. Infraspinatus tendinopathy with partial tear. Subscapularis tendinopathy. Biceps tenosynovitis. Assessment & Plan Assessment & Plan (1) Rotator cuff tear, left: Code(s): M75.102 - Unspecified rotator cuff tear or rupture of left shoulder, not specified as traumatic Category: Medical Plan: This is a 59-year-old with a complete tear of his left supraspinatus. His motion is better than when I saw him before in terms of external rotation and I recommend a rotator cuff repair. I discussed the risks benefits and alternatives including but not limited to the risk of pain, infection, stiffness, need for further surgery as well as potential medical complications such as blood clots, pulmonary embolism and cardiac complications. He expressed understanding and we will proceed forward accordingly. Coding Level of Care Code Est Pt Level 4 (39264) Diagnoses Rotator cuff tear, left M75.102
--- OUTSIDE RECORDS SUMMARY | 2024-11-14 14:45 | XMS_ITS | Clinical Summary ---
Author Organization [employer] [facility] Address [address] [place] [address] [address]t [place] [address] Care Team Providers Care Examination Supervisor Name Role Phone Unavailable Primary Care Provider [...]
--- OUTSIDE RECORDS SUMMARY | 2024-11-14 14:45 | XMS_ITS | Encounter Summary ---
Author Organization [employer] [facility] Address [address] [place] [address] Care Team Providers Care Nursing Techn Name Role Phone Unavailable Primary Care Provider Unavailabl e Encounter Details Date Type Department Care Team (Late st Contact Info) Description 07/31/2022 Abstract [facility] ADULT DENTAL [address] [place], [place] [phone] Mani Saenz DDS [address] [place], [place] [phone] Social History Tobacco Use Types Packs/Day Years [...]
--- OUTSIDE RECORDS SUMMARY | 2024-11-14 14:45 | XMS_ITS | Encounter Summary ---
Author Organization [facility] Address [address] [place] [address] 7 h Floor [place] [id number] Care Team Providers Care Content Creation Manager Name Role Phone Unavailable Primary Care Provider Unavailabl e Encounter Details Date Type Department Care Team (Latest Contact Info) Description 05/03/2021 Abstract [facility] CONVERSIONS Dental, Provider, DDS Social History Tobacco [...]
== END 2024-11-14 12:57 | disposition home or self-care (01) ==
LOC: HO.HOS 12:21
PROVIDERS: PCP Physician Assistant; Visit Provider Orthopaedic Surgery
DX: S46.012A Strain of muscle(s) and tendon(s) of the rotator cuff of left shoulder, initial encounter (principal)
CPT/HCPCS: 99214

== ENCOUNTER 2024-12-07 08:21 | Day surgery (SDC) | payer BC, SELFPAY ==
--- OUTSIDE RECORDS SUMMARY | 2024-11-15 08:04 | XMS_ITS | Encounter Summary ---
Author Organization [employer] [facility] Address [address] [facility] 7t [place] [address] Care Team Providers Care Office Technology Instructor Name Role Phone Unavailable Primary Care Provider Unavailabl e Encounter Details Date Type Department Care Team (Late st Contact Info) Description 07/31/2022 Abstract [facility] ADULT DENTAL [address] [place], [place] [id number] Mani Saenz DDS [address] [place], [place] [id number] Social History Tobacco Use Types Packs/Day Years [...]
--- OUTSIDE RECORDS SUMMARY | 2024-11-15 08:04 | XMS_ITS | Encounter Summary ---
Author Organization [facility] [facility] Address [address] [place] [address] 7 h Floor [place] [id number] Care Team Providers Care Natural Sciences Department Chair Name Role Phone Unavailable Primary Care Provider Unavailabl e Encounter Details Date Type Department Care Team (Latest Contact Info) Description 05/03/2021 Abstract [facility] CONVERSIONS Dental, Provider, DDS Social History Tobacco [...]
--- OUTSIDE RECORDS SUMMARY | 2024-11-15 08:04 | XMS_ITS | Clinical Summary ---
Author Organization [facility] Address [address] [place] [address] 7t [place] [address] Care Team Providers Care Principal Solutions Architect Name Role Phone Unavailable Primary Care Provider [...]
[2024-12-05 08:06] VITALS: BMI 28.7
--- NOTE | 2024-12-05 16:14 | HO.ANESPROP2 ---
Documented by User: Carissa Hermosillo NP 12/05/24 16:16 HPI - Anesthesia Eval Consult details Narrative: 59yo M for Left Revision Arthroscopic Rotator Cuff Repair PMFSH Active Problems Active Problems: All Active Problems Rotator cuff tear, left (Acute) Internal derangement of left shoulder (Acute) Left shoulder pain (Acute) Lumbar strain (Acute) Retracted drums (Acute) BPH (benign prostatic hyperplasia) (Acute) Elevated PSA (Acute) Tinnitus (Acute) Plantar fasciitis (Acute) Low libido (Acute) Hydrocele (Acute) Microscopic hematuria (Acute) Screening for hypercholesterolemia (Acute) Ganglion cyst of right groin (Acute) Nephrolithiasis (Acute) Sensorineural hearing loss (SNHL) of both ears (Acute) Colon cancer screening (Acute) Screening for prostate cancer (Acute) Screening for hypothyroidism (Acute) Screening for diabetes mellitus (DM) (Acute) Annual physical exam (Acute) Past Medical History Medical History (Updated 11/14/24 @ 12:34 by Avni Tang MD) H/O nephrolithotomy with removal of calculi Family History Family History Father Cancer Lung cancer Mother ESRD (end stage renal disease) Surgical History Surgical History (Updated 12/07/24 @ 09:56 by Akila Longoria RN) H/O lithotripsy H/O hand surgery Social History Social History Housing: House Are you a primary patient centered care specialist to a significant other at home: No Do you presently have visiting nurse or other home services: No Alcohol intake: former Patient Tobacco Use Status: Former Tobacco user Tobacco use type: Cigarette Years Smoked: 10 Smoked in Last 30 Days: No e-Cigarette/Vaping Use: Never Used Second Hand Smoke Exposure: No Use of substances other than those prescribed or required for medical reasons: No Have you been hit, kicked, punched, or otherwise hurt by someone within the past year? 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 Rate : 061 BPM Atrial Rate : 061 BPM P-R Int : 110 ms QRS Dur : 088 ms QT Int : 392 ms P-R-T Axes : 078 069 042 degrees QTc Int : 394 ms Sinus rhythm with short MA Otherwise normal ECG No previous ECGs available Assessment and Plan Assessment Anesthesia Assessment: Chart Reviewed Documented by User: Cady Dee MD 12/07/24 11:20 [facility] Past Medical History Medical History (Updated 11/14/24 @ 12:34 by Avni Tang MD) H/O nephrolithotomy with removal of calculi Family History Family History Father Cancer Lung cancer Mother ESRD (end stage renal disease) Family history of problems with anesthesia: No Surgical History Surgical History (Updated 12/07/24 @ 09:56 by Akila Longoria RN) H/O lithotripsy H/O hand surgery History of Problems with Anesthesia: No Social History Social History Housing: House Are you a primary patient centered care specialist to a significant other at home: No Do you presently have visiting nurse or other home services: No Alcohol intake: former Patient Tobacco Use Status: Former Tobacco user Tobacco use type: Cigarette Years Smoked: 10 Smoked in Last 30 Days: No e-Cigarette/Vaping Use: Never Used Second Hand Smoke Exposure: No Use of substances other than those prescribed or required for medical reasons: No Have you been hit, kicked, punched, or otherwise hurt by someone within the past year? 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 Cognitive needs: No Hearing needs: Yes (Hearing aide) Vision needs: No Meds Allergies Allergy/AdvReac Type Severity Reaction Status Date / Time No Known Allergies Allergy Verified 12/07/24 09:54 [No Known Allergies*] Exam Airway Mallampati Class: II TM Dist: >3cm Neck ROM: Full Heart: rrr Lungs: cta Assessment and Plan Assessment Anesthesia Assessment: Anesthesia Plan Discussed Final Anesthetic Review Family History of Problems with Anesthesia: No History of Problems with Anesthesia: No NPO: Yes ASA Class: II Final Preanesthetic Review: No Changes in Pt Med Stat, Meds/Allgs Chart Reviewed and Consent Obtained/Reviewed Patient Risk: Low Procedure Risk: Intermediate Anesthetic Plan Anesthetic Plan: GA Disposition: Standard PACU
--- NOTE | 2024-12-07 09:27 | MHC.SHP ---
Pre-Procedural Eval Section A - 24 Hr Update-Section A only Date of Service: 12/07/24 The patient is an INPATIENT: No Changes since office visit: No Cold of Flu in the past 2 weeks, No New Medical Problems, No Changes in Medication and No Patient answered all questions The patient has been examined within 24 hours of the surgical procedure. The History & Physical has been completed within 30 days and I have reviewed it.: Yes Section B - Complete if H&P > 30 days Chief Complaint: Unspecified rotator cuff tear or rupture of left Allergies: Allergies Allergy/AdvReac Type Severity Reaction Status Date / Time No Known Allergies Allergy Verified 09/06/24 15:57 [No Known Allergies*] Plan I have reviewed the history and physical and performed a pertinent physical examination on my patient. No changes have occurred unless specified. Time Spent With Patient Time: Total time managing care of this patient today ____ minutes.
[2024-12-07 09:56] VITALS: BP 114/76; PULSE 65; RESP 16; TEMP 36.7; O2SAT 98; BMI 29.2
[2024-12-07] MEDS: Lactated Ringers 1,000 ML 100 ML IVCONT (10:23)
--- NOTE | 2024-12-07 11:30 | MHC.SHP ---
Pre-Procedural Eval Section A - 24 Hr Update-Section A only Date of Service: 12/07/24 The patient is an INPATIENT: No Changes since office visit: No Cold of Flu in the past 2 weeks, No New Medical Problems, No Changes in Medication and No Patient answered all questions The patient has been examined within 24 hours of the surgical procedure. The History & Physical has been completed within 30 days and I have reviewed it.: Yes Section B - Complete if H&P > 30 days Chief Complaint: Unspecified rotator cuff tear or rupture of left Allergies: Allergies Allergy/AdvReac Type Severity Reaction Status Date / Time No Known Allergies Allergy Verified 12/07/24 09:54 [No Known Allergies*] Plan I have reviewed the history and physical and performed a pertinent physical examination on my patient. No changes have occurred unless specified. Time Spent With Patient Time: Total time managing care of this patient today ____ minutes.
[2024-12-07] MEDS: ceFAZolin Sodium/Dextrose,Iso 2 GM/50 ML PIGGYBACK IV (12:12)
[2024-12-07] MEDS: Acetaminophen 1,000 MG/100 ML PIGGYBACK 400 MG IV (13:37)
[2024-12-07 14:30] VITALS: BP 126/82; PULSE 104; RESP 22; TEMP 36.4; O2SAT 98
[2024-12-07 14:35] VITALS: BP 115/73; PULSE 111; RESP 16; O2SAT 96
[2024-12-07 14:40] VITALS: BP 116/77; PULSE 103; RESP 16; O2SAT 96
--- NOTE | 2024-12-07 14:42 | P.BOP_ITS ---
Brief Operative Note Date of Service: 12/07/24 Pre-op diagnosis: Left rotator cuff tear Post-op diagnosis: same Procedure: Left rotator cuff tear Implants: S&N Halecoild double loaded 4.75 x 2; Helacoil 5.5 knotless helacoil Regeneten large bioinductive collagen patch Surgeon: Avni Tang MD Anesthesia: GETA and regional Was an Rn Surgery Icu used for this Procedure?: Yes Rn Surgery Icu: Pebbles Carey Estimated blood loss (mL): 25 IV fluids (mL): 1,200 Pathology: none sent Condition: stable Disposition: PACU
[2024-12-07 14:45] VITALS: BP 125/82; PULSE 99; RESP 16; O2SAT 96
[2024-12-07 14:55] VITALS: BP 122/77; PULSE 92; RESP 16; TEMP 36.4; O2SAT 96
--- NOTE | 2024-12-08 09:17 | P.OP_ITS ---
Operative Note Operative Note Date of Service: 12/07/24 Narrative: Date of Service: 12/07/24 Pre-op diagnosis: Left rotator cuff tear Post-op diagnosis: same Procedure: Left rotator cuff tear Implants: S&N Halecoild double loaded 4.75 x 2; Helacoil 5.5 knotless helacoil Regeneten large bioinductive collagen patch Surgeon: Avni Tang MD Anesthesia: GETA and regional Was an Breastfeeding Educator used for this Procedure?: Yes Breastfeeding Educator: Pebbles Carey Estimated blood loss (mL): 25 IV fluids (mL): 1,200 Pathology: none sent Condition: stable Disposition: PACU Procedure in detail: Patient was brought to the operating room and placed the the beach chair position. All bony prominences were well padded and the limb was prepped and draped in standard sterile fashion. A time out was called to identify proper site, proper procedure and proper surgeon. IV antibiotics per weight were adm inistered. I began by making a posterolateral stab incision with a 15 blade. A blunt trochar was placed into the glenohumeral joint and I insufflated the joint with saline and a 30 degree arthroscope was placed. I established an outside- in anterior portal just distal to the biceps tendon. I then began my inspection of the glenohumeral joint. There was a normal biceps anchor and minimal degenerati ve labral changes and there were minimal cartilage changes at the inferior glenoid without humeral head changes. There was a full thickness undersurface RTC tear. The subcapularis was intact. I debrided the loose cartilage of the glenoid and the degenerative labral tearing. I then removed the trochar and entered the subacromial space. A direct lateral portal was then established and I performed a bursectomy. The cuff was then examined. This was an unusual tear. There was a delamination component of the majority of the supraspinatus and then a high-grade partial-thickness tear of the majority of the anterior half of the infraspinatus. There was a layer of intact supraspinatus but the delaminated bursal layer had retracted. This was mobile however and I used a shaver via a lateral portal to debride and release some of the anterior fibers of the retracted tendon. This was essentially a full-thickness tear for the infraspinatus in the posterior aspect of the supraspinatus. Once I had debrided some of the scarring over the supraspinatus I placed 2 medial row 4.75 double loaded Healicoil anchors at the articular border via a superior lateral stab incision. I then shuttled the 8 limbs of these sutures through the cuff until I was satisfied with the reproduction of normal anatomy. I used a spherical bur to bur the bare area down to bleeding bone and brought the 8 limbs of the medial row down to 25.5 knotless helical lateral row anchors using a standard cross bridge configuration. Once this was done I examined the repair and was satisfied with the tension-free repair and reproduction of normal anatomy. There was some of the anterior most aspect of the bursal supraspinatus that was not repairable. Given the severity and irregularity of this tear and the patient's tissue quality I elected to place a large Regeneten collagen bio inductive patch over the repair. This was shuttled in via a lateral portal and held in place with 6 soft tissue peek reba and 2 lateral bone reba. A 5 mm anterior subacromial decompression was performed performed with a oval bur via a lateral portal. Once I was satisfied with the repair final images were captured and I removed all instrumentation. Portals were closed with nylon. Patient was placed in an abduction sling, extubated and brought to the recovery room in stable condition. There were no known complications.
== END 2024-12-07 15:57 | disposition home or self-care (01) ==
LOC: HO.SSS 08:21
PROVIDERS: PCP Physician Assistant; Visit Provider Orthopaedic Surgery
PROC: (CPT 29827; principal; 2024-12-07 12:20)
DX: S46.012A Strain of muscle(s) and tendon(s) of the rotator cuff of left shoulder, initial encounter (principal); M24.812 Other specific joint derangements of left shoulder, not elsewhere classified; M25.812 Other specified joint disorders, left shoulder; W00.0XXA Fall on same level due to ice and snow, initial encounter; Y93.K1 Activity, walking an animal; Y92.9 Unspecified place or not applicable; Y99.9 Unspecified external cause status; Z97.4 Presence of external hearing-aid; Z98.890 Other specified postprocedural states; Z87.442 Personal history of urinary calculi; Z87.891 Personal history of nicotine dependence
CPT/HCPCS: 29827; 29823; 29826; C1713; C1763; J0131; J0171; J0665; J0690; J1100; J2003; J2250; J2371; J2405; J2704; J3010

== ENCOUNTER → 2024-12-07 08:21 | Outpatient (BNV) | payer BC, SELFPAY | PROVIDERS: PCP Physician Assistant; Visit Provider Orthopaedic Surgery | DX: S46.011A Strain of muscle(s) and tendon(s) of the rotator cuff of right shoulder, initial encounter (principal) | CPT/HCPCS: 29827 ==

== ENCOUNTER 2024-12-16 13:20 | Outpatient (AMB) | payer BC, SELFPAY ==
--- NOTE | 2024-12-16 13:23 | A.OFFVIS_ITS ---
Intake Visit Reasons: PO LT RTC 12/07/24 NE Intake Note: Fahad is a 59 year old right hand dominant male who presents today for a post op appointment s/p left shoulder rotator cuff tear 12/07/24 NE. Patient reports he is having pain in his shoulder. He has been talking his pain medication which is giving him mild relief. Patient is thinking about going back to work soon. Allergies No Known Allergies [No Known Allergies*] Allergy (Verified 12/16/24 13:33) HPI HPI PO LT RTC 12/07/24 NE: Details: Mr. Butterfield is a 59-year-old male who presents to the office today status post left shoulder rotator cuff repair with collagen patch performed on 12/07/[address] Tang. He presents to the office today in the abduction sling appropriately positioned. He reports pain at night causing difficulty with sleeping. [facility] Medical History (Updated 11/14/24 @ 12:34 by Avni Tang MD) H/O nephrolithotomy with removal of calculi Surgical History (Updated 12/16/24 @ 13:57 by Pebbles Carey PA-C) H/O lithotripsy H/O hand surgery Family History Father Cancer Lung cancer Mother ESRD (end stage renal disease) Social History Housing: House Are you a primary wound care center consultant to a significant other at home: No Do you presently have visiting nurse or other home services: No Alcohol intake: former Comment: counts correct Patient Tobacco Use Status: Former Tobacco user Tobacco use type: Cigarette Years Smoked: 10 e-Cigarette/Vaping Use: Never Used Second Hand Smoke Exposure: No service: No Current occupational status: employed 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 No surrounding erythema or drainage. No evidence of infection. 45 degrees forward flexion abduction. External rotation to neutral. NVI. Assessment & Plan Assessment & Plan (1) Status post left rotator cuff repair: Code(s): Z98.890 - Other specified postprocedural states Category: Surgical Plan Mr. Butterfield is a 59-year-old male who presents to the office today status post left shoulder rotator cuff repair with collagen patch performed on 12/07/[address] Tang. He presents to the office today in the abduction sling appropriately positioned. He reports pain at night causing difficulty with sleeping. On the office today sutures are removed and Steri-Strips were applied. He was placed back into the abduction sling. He was instructed to remain in the abduction sling for roughly 6 weeks postoperatively. If physical therapy order has been placed while in the office today for a stat appointment. He will follow up in [address] Tang, sooner if needed. Orders: Orders PT Evaluation and Treatment Today M75.102 - Unspecified rotator cuff tear or rupture of left shoulder, not specified as traumatic Coding Level of Care Code Global (94894) Diagnoses Status post left rotator cuff repair Z98.890
--- OUTSIDE RECORDS SUMMARY | 2024-12-16 13:27 | XMS_ITS | Encounter Summary ---
Author Organization [facility] Address [address] [place] [address] 7 [place] [address] Care Team Providers Care Securities Teller Name Role Phone Unavailable Primary Care Provider Unavailabl e Encounter Details Date Type Department Care Team (Latest Contact Info) Description 05/03/2021 Abstract [facility] CONVERSIONS Dental, Provider, DDS Social History Tobacco [...]
== END 2024-12-16 13:54 | disposition home or self-care (01) ==
LOC: HO.HOS 13:21
PROVIDERS: PCP Physician Assistant; Visit Provider Physician Assistant
DX: Z98.890 Other specified postprocedural states (principal)
CPT/HCPCS: 99024

== ENCOUNTER 2025-01-11 10:53 | Outpatient (RCR) | payer BC, SELFPAY ==
--- NOTE | 2024-12-22 13:24 | MHC.PT.EP ---
[facility] [place] Office [place] Office [place] Office [address] [phone] F: [phone] F: [phone] F: [phone] F: [phone] Physical Therapy Plan of Care Date of Evaluation: 12/22/24 Date of Surgery: 12/07/24 Diagnosis: S/P LEFT RC REPAIR W COLLAGEN PATCH W DR COOK Assessment: 59 YO MALE REF TO PT S/P Lt RC REPAIR (SUPRA/INFRA W LARGE COLLAGEN PATCH ON 12/07/24)->2 WKS PO, AND HE HAS DECR AWARENESS RE: POST-OP RESTRICTIONS. HE IS Rt HAND DOMINANT. 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 THE Pt HAS POST-OP FINDINGS OF LIMITED ROM Lt SH, DECR POSTURE, STRENGTH DEFICIT POST RC/ SCAP MM, AND FLUCTUATING PAIN IN Lt SH. HE RESIDES ALONE IN A 2ND FLOOR APT- HIS GIRLFRIEND ASSISTS ABLE, BUT THE Pt NOTES HE HAS DIFFIC GETTING DRESSED AND SLEEPING. THE Pt WAS EDUC ON POST -OP RESTRICTIONS, ICE APPLIC/ PAIN MGMT, GRAFT PROTECTION, AND PT POC FOR GUIDANCE IN POST-OP COURSE. 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 Manual therapy to restore motion and function. Therapeutic exercise to improve strength and flexibility. Neuromuscular re-education for posture and balance. Therapeutic activities to return to functional activities of daily living. Electronically signed by: ABIMAEL RINCON,PT Please sign and return to therapist. Thank you for your referral.
--- NOTE | 2025-03-08 11:39 | MHC.PT.DC ---
[facility] [place] Office [place] Office [place] Office [address] Jyoti Mcneill [address] [phone] F: [phone] F: [phone] F: [phone] F: [phone] Physical Therapy Discharge Report Diagnosis: S/P LEFT RC REPAIR W COLLAGEN PATCH W DR COOK Date of Surgery: 12/07/24 Date of Evaluation: 12/22/24 Date of Discharge: 03/08/25 Treatments to Date: 4 Cancellations to Date: 6 No Shows to Date: 3 Discharge Status: Patient Elected to Stop Visit Non-compliance Discharge Summary: [facility] LAST ATTENDED PT ON 01/11/25, HE WAS 5 WKS POST-OP AND HE HAD DECR TINA TO PROM Lt SH WITH INCR TTP Lt ANT/ DELT MM, AND HE REQ FREQ REMINDERS RE AVOIDING STRESSFUL ACTIVE USE Lt UE/ LIFTING, DONNING/ DOFFING HIGH TOP SNEAKERS, ETC W RESPECT TO POST-OP PROTOTCOL; HE HAD ORTHO F/U THE FOLLOWING -> THE Pt WOULD LIKE TO RTW THURSDAY..HE PHONED AND NOTED HE WAS LAID OFF FROM WORK, NO INSURANCE, AND WAS NOT RETURNING FOR ADDITIONAL PT-> ORTHO DEPT WAS CONTACTED AND UPDATED. UNSUCCESSFUL ATTEMPTS WERE MADE TO CONTCAT THE Pt FOR FURTHER DISCUSSION... Electronically signed by: ABIMAEL RINCON,PT Please sign and return to therapist. Thank you for your referral.
== END 2025-03-08 11:40 | disposition home or self-care (01) ==
LOC: HO.PT 10:53
PROVIDERS: PCP Physician Assistant; Visit Provider Physician Assistant
DX: M75.102 Unspecified rotator cuff tear or rupture of left shoulder, not specified as traumatic (principal); Z98.890 Other specified postprocedural states
CPT/HCPCS: 97110; 97140; 97162; 97535

== ENCOUNTER 2025-01-12 11:17 | Outpatient (AMB) | payer BC, SELFPAY ==
--- NOTE | 2025-01-12 11:46 | A.OFFVIS_ITS ---
Intake Visit Reasons: PO LT RTC 12/07/24 NE Intake Note: Fahad is a 59 year old right hand dominant male who presents today for a post operative appointment 5 weeks s/p left shoulder rotator cuff tear 12/07/24 NE. Stat order for PT was placed last visit. Remains out of work at this time. Allergies No Known Allergies (No Known Allergies*) Allergy (Verified 12/16/24 13:33) HPI HPI PO LT RTC 12/07/24 NE: Details: Fahad is a 59 year old right hand dominant male who presents today for a post operative appointment 5 weeks s/p left shoulder rotator cuff tear 12/07/24 NE. Stat order for PT was placed last visit. Remains out of work at this time. He reports doing better with still pain at night and with activity. He has been trying to return to normal activity and does not seem to understand that he should be limited. He wants to go back to work next week. [facility] Medical History (Updated 11/14/24 @ 12:34 by Avni Tang MD) H/O nephrolithotomy with removal of calculi Surgical History (Updated 12/16/24 @ 13:57 by Pebbles Carey PA-C) H/O lithotripsy H/O hand surgery Family History Father Cancer Lung cancer Mother ESRD (end stage renal disease) Social History Housing: House Are you a primary reproductive healthcare assistant to a significant other at home: No Do you presently have visiting nurse or other home services: No Alcohol intake: former Comment: counts correct Patient Tobacco Use Status: Former Tobacco user Tobacco use type: Cigarette Years Smoked: 10 e-Cigarette/Vaping Use: Never Used Second Hand Smoke Exposure: No service: No Current occupational status: employed 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 Active abduction to 90 degrees. Forward flexion to 120. External rotation to 30 degrees. Assessment & Plan Assessment & Plan (1) Status post left rotator cuff repair: Code(s): Z98.890 - Other specified postprocedural states Category: Surgical Plan: This is a 51-year-old gentleman now 6 weeks status post left rotator cuff repair. He is doing far too much in his expectations are unrealistic. He wants to go back to work next week. He is not wearing his sling. Given all of this however he has doing fairly well. I explained to him the importance of activity modification and he should exhibit more caution that he seems to be exhibiting. In addition, he may return to work for sedentary work only no lifting or overhead use left arm. Plan Work Note:Return 01/23- Sedentary Work Only: No Lifting and No Overhead work. Follow Up in 6 weeks with Pebbles Medications: Discontinued oxycodone-acetaminophen 5-325 mg (Percocet) Partial Fill upon patient request. Discontinued Reason: Doctor's Order 1 tab PO Q8H 7 days PRN 21 tabs 0RF pain (scale score 4-6) Coding Level of Care Code Global (42361) Diagnoses Status post left rotator cuff repair Z98.890
--- OUTSIDE RECORDS SUMMARY | 2025-01-12 13:31 | XMS_ITS | Encounter Summary ---
Author Organization [facility] Address [address] [place] [address] [address] [place] [address] Care Team Providers Care Business Insurance Agent Name Role Phone Unavailable Primary Care Provider [...]
== END 2025-01-12 12:13 | disposition home or self-care (01) ==
LOC: HO.HOS 11:18
PROVIDERS: PCP Physician Assistant; Visit Provider Orthopaedic Surgery
DX: Z98.890 Other specified postprocedural states (principal)
CPT/HCPCS: 99024

== ENCOUNTER 2025-02-27 09:22 | Outpatient (AMB) | payer OTHER, SELFPAY ==
[2025-02-27 09:37] VITALS: BMI 29.0
--- NOTE | 2025-02-27 09:37 | A.OFFVIS_ITS ---
Vital Signs 02/27/25 09:37 Height 5 ft 8 in Weight 191 lb BMI 29.0 Intake Visit Reasons: PO LT RTC 12/07/24 NE Intake Note: Fahad is a 59 year old right hand dominant male who presents today for a post op appointment s/p left shoulder rotator cuff tear 12/07/24 NE. Patient reports his shoulder is a little better . Pain is primarily present when trying to bring out his arm, laterally. He is not able to grab heavy items. He states he needed to change his insurance and therefore his last PT session was about 3 weeks ago. He is not taking any pain meds at this time. Allergies No Known Allergies (No Known Allergies*) Allergy (Verified 02/27/25 09:38) HPI HPI PO LT RTC 12/07/24 NE: Details: Mr. Scout andrade is a 59-year-old male who presents to the office today for follow-up status post left shoulder rotator cuff repair with large collagen patch. Patient reports that his last physical therapy session was roughly 3 weeks ago because his insurance change. He reports he continues to have difficulty raising his arm above shoulder height and discomfort. [facility] Medical History (Updated 11/14/24 @ 12:34 by Avni Tang MD) H/O nephrolithotomy with removal of calculi Surgical History (Updated 12/16/24 @ 13:57 by Pebbles Carey PA-C) H/O lithotripsy H/O hand surgery Family History Father Cancer Lung cancer Mother ESRD (end stage renal disease) Social History Housing: House Are you a primary acute care clinical nurse specialist to a significant other at home: No Do you presently have visiting nurse or other home services: No Alcohol intake: former Comment: counts correct Patient Tobacco Use Status: Former Tobacco user Tobacco use type: Cigarette Years Smoked: 10 e-Cigarette/Vaping Use: Never Used Second Hand Smoke Exposure: No service: No Current occupational status: employed 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 90 degrees abduction. 30 degrees external rotation. Able to reach back pocket. NVI. Psych Appearance: grossly normal Mental Status: mental status grossly normal Attitude: cooperative Assessment & Plan Assessment & Plan (1) Status post left rotator cuff repair: Code(s): Z98.890 - Other specified postprocedural states Category: Surgical Plan Mr. Butterfield this is a 59-year-old male who presents to the office today for follow-up status post left shoulder rotator cuff repair with large collagen patch. Patient reports that his last physical therapy session was roughly 3 weeks ago because his insurance change. He reports he continues to have difficulty raising his arm above shoulder height and discomfort. While in the office today, we discussed continuation of physical therapy. Patient has established with a new insurance company. Therefore, I have placed a new referral to physical therapy. He should continue to work on maximizing his range of motion. I do believe that he has started to develop some stiffness/adhesive capsulitis as the patient has had decrease in range of motion since his last physical examination with Dr. Tang. Once patient is able to maximize full range of motion he can progress to strengthening. He will follow up in 6 weeks, sooner if needed. Coding Level of Care Code Global (64544) Diagnoses Status post left rotator cuff repair Z98.890
--- OUTSIDE RECORDS SUMMARY | 2025-02-27 09:49 | XMS_ITS | Encounter Summary ---
Author Organization [facility] [employer] Address [address] [place] [address] [address] [place] [address] Care Team Providers Care Design Engineering Technician Name Role Phone Unavailable Primary Care Provider [...]
== END 2025-02-27 09:49 | disposition home or self-care (01) ==
LOC: HO.HOS 09:23
PROVIDERS: PCP Physician Assistant; Visit Provider Physician Assistant
DX: Z98.890 Other specified postprocedural states (principal)
CPT/HCPCS: 99024

== ENCOUNTER → 2025-02-27 09:22 | Outpatient (BNVA) | payer OTHER, SELFPAY | PROVIDERS: PCP Physician Assistant; Visit Provider Physician Assistant | DX: Z98.890 Other specified postprocedural states (principal) | CPT/HCPCS: 99212 ==

== ENCOUNTER 2025-03-03 11:57 | Outpatient (AMB) | payer OTHER, SELFPAY ==
--- NOTE | 2025-03-03 12:31 | MHC.OFFWIV ---
Intake Vital Signs 03/03/25 12:32 Height 5 ft 8 in Weight 190 lb BMI 28.9 BP 102/80 Blood Pressure Location Lt brachial Position Sitting Pulse 88 Pulse Source Pulse Oximeter Temp 97.4 F Temp Source Oral Pulse Oximetry (%) 98 Oxygen Delivery Method Room Air Intake Visit Reasons: EP Numbing/burning/pain in legs Intake Note: presents with bilateral anterior thigh pain/burning/tingling- feels like they're on fire at nighttime ; RT > LT Patient Tobacco Use Status: Former Tobacco user Allergies No Known Allergies (No Known Allergies*) Allergy (Verified 03/03/25 12:33) Do you need a note to return to daycare/school/sports/work: No HPI HPI Comments History of Present Illness Details This is a 59 year old male with a past medical history of sensorineural hearing loss and recent left rotator cuff repair presenting for evaluation of a tingling and burning sensation in his right anterior thigh that has been intermittent over the past 10 days. Patient reports having minimal low back pain that is chronic, but denies any recent injury or trauma to his low back or lower extremities. Patient has not taken any medication for treatment of this discomfort. Additionally, he denies any radiation of his discomfort to his right posterior thigh or right distal lower extremity. [facility] Medical History (Updated 03/03/25 @ 13:23 by Cady Tong PA-C) H/O nephrolithotomy with removal of calculi Surgical History (Updated 12/16/24 @ 13:57 by Pebbles Carey PA-C) H/O lithotripsy H/O hand surgery Family History Father Cancer Lung cancer Mother ESRD (end stage renal disease) Social History Housing: House Are you a primary transitions rn care coordinator to a significant other at home: No Do you presently have visiting nurse or other home services: No Alcohol intake: former Comment: counts correct Patient Tobacco Use Status: Former Tobacco user Tobacco use type: Cigarette Years Smoked: 10 e-Cigarette/Vaping Use: Never Used Second Hand Smoke Exposure: No service: No Current occupational status: employed 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 Cognitive needs: No Hearing needs: Yes (Hearing aide) Vision needs: No Review of Systems Const All systems reviewed & are unremarkable except as noted in HPI and below Reports no additional complaints, Denies body aches and Denies lethargy Reports no additional complaints, Denies dysuria, Denies testicular pain and Denies urinary frequency Musc Reports back pain (chronic), Reports numbness (right thigh) and Reports tingling (right thigh) Skin/Breast Reports system reviewed and no additional complaints, except as documented Neuro Reports no additional complaints, Denies focal weakness, Reports numbness (right thigh), Denies Sensory deficit (Neuro), Reports tingling (right thigh) and Denies paresthesias Psych Reports no additional complaints Endo Reports no additional complaints Physical Exam Vital Signs: Last Vital Signs Temp 97.4 F 03/03/25 12:32 Pulse 88 03/03/25 12:32 BP 102/80 03/03/25 12:32 Pulse Ox 98 03/03/25 12:32 Oxygen Delivery Method Room Air 03/03/25 12:32 BMI result Body Mass Index 28.9 Const General: cooperative, healthy appearing, comfortable, no acute distress, well developed, alert, awake and Physically active; No acute distress Nutritional Appearance: well nourished Orientation/consciousness: patient oriented x3 Limitations: other limitations (Sensorineural hearing loss) General: Yes no CVA tenderness Back/Spine/Pelvis Back: no CVA tenderness Thoracic/Lumbar Spine: thoracic and lumbar spine normal to inspection, thoraco-lumbar ROM normal, straight leg raise negative bilaterally, No pain with thoraco-lumbar ROM, No paraspinal muscle tenderness, No thoracic spinal tenderness and No lumbar spinal tenderness Sacroiliac joints: bilaterally nontender Skin General skin exam: no rashes or lesions noted Neuro General: patient oriented x3 Gait exam (Neuro): Normal gait present, not ataxic and not shuffling Motor exam (neuro): 5/5 motor strength present throughout, Normal motor muscle tone present throughout and Motor abnormalities not present Sensory Exam: No Sensory deficit (Neuro) Extrem Right lower extremity: normal to inspection and hip/thigh Details: normal to inspection and normal ROM; no tenderness, no swelling, no ecchymosis, no deformity and no unusual warmth Psych Appearance: grossly normal Mental Status: mental status grossly normal Insight: Good insight present (Psych) Judgement: Good judgement present (Psych) Assessment & Plan Assessment & Plan (1) Thigh pain: Comment: Patient's complaint is nonspecific and there is no associated back pain or sciatic pain. Sensation is intact throughout the lower extremities bilaterally and patient is ambulating independently without ataxia. Given his primary complaint of paresthesias, patient will be discharged home with a course of anti-inflammatory medication. Patient is encouraged to follow up with his primary care provider within 10-14 days. Code(s): M79.659 - Pain in unspecified thigh Qualifiers: Laterality: right Qualified Code(s): M79.651 - Pain in right thigh Plan: Naprosyn 500 mg b.i.d. times 10 days. Medications: New naproxen (Naprosyn) 500 mg PO BID 20 tabs 0RF Coding Level of Care Code Est Pt Level 3 (71929) Diagnoses Pain of right thigh M79.651 Laterality: right Time Spent (min) 20
[2025-03-03 12:32] VITALS: BP 102/80; PULSE 88; TEMP 36.3; O2SAT 98; BMI 28.9
== END 2025-03-03 13:34 | disposition home or self-care (01) ==
PROVIDERS: PCP Physician Assistant; Visit Provider Physician Assistant
DX: M79.651 Pain in right thigh (principal)

== ENCOUNTER → 2025-03-03 11:57 | Outpatient (BNVA) | payer OTHER, SELFPAY | PROVIDERS: PCP Physician Assistant; Visit Provider Physician Assistant | DX: M79.651 Pain in right thigh (principal); M54.50 Low back pain, unspecified; G89.29 Other chronic pain | CPT/HCPCS: 99212 ==

== ENCOUNTER 2025-04-08 18:03 | Emergency (ER) | payer OTHER, SELFPAY ==
--- NOTE | ~2025-04-08 | XR_ITS ---
CLINICAL HISTORY: pain 3 view left shoulder Comparison: CR - XR SHOULDER LT MIN 2V - 08/17/24 19:05 EST Findings: No acute fracture. No dislocation. Previous internal fixation of the left clavicle and humeral head surgical tacks. Degenerative changes of humeral head and of the acromioclavicular joint. No erosions. IMPRESSION: 1. No acute findings This document has been electronically signed by: Peri Mathis MD on 04/08/2025 19:33:57
--- NOTE | 2025-04-08 18:37 | ED.UPPEXIN ---
HPI - Extremity Injury (Upper) General Chief Complaint: Extremity Injury, Upper Stated Complaint: left shoulder pain Time Seen by Provider: 04/08/25 19:26 Source: patient Limitations: no limitations History of Present Illness ED Provider: Taylor Coon PA-C HPI narrative: 59-year-old male with recent shoulder surgery in November, presents with left shoulder pain. Patient states he slipped and fell, catching himself on the ground with the his hands, now with left anterior her shoulder pain. The incident occurred 3 days ago. Patient is able to range the joint, although limited in ranging the arm fully above the head. Related Data Home Medications ?Medication ?Instructions ?Recorded ?Confirmed oxycodone 5 mg capsule 5 mg PO BID PRN 03/03/25 Previous Rx's ?Medication ?Instructions ?Recorded ibuprofen 600 mg tablet 600 mg PO Q6H PRN pain #30 tabs 09/02/24 naproxen 500 mg tablet (Naprosyn) 500 mg PO BID #20 tabs 03/03/25 ketorolac 10 mg tablet 10 mg PO Q6H PRN pain #20 tabs 04/08/25 methocarbamol 750 mg tablet 1,500 mg (2 x 750 mg) PO Q8H PRN 04/08/25 pain, moderate #24 tabs Allergies Allergy/AdvReac Type Severity Reaction Status Date / Time No Known Allergies (No Known Allergy Verified 04/08/25 18:42 Allergies*) Review of Systems Review of Systems: Yes all other systems are reviewed and are negative Constitutional: Constitutional: Denies fatigue and Denies fever(s) Musculoskeletal: Musculoskeletal: Reports arthralgias and Denies joint swelling Endocrine: Endocrine: Denies fatigue PMFSH Past Medical History Attestation statement: The following information was validated with the patient. Medical History (Updated 04/08/25 @ 21:08 by TY Estrella) H/O nephrolithotomy with removal of calculi Surgical History (Updated 12/16/24 @ 13:57 by Pebbles Carey PA-C) H/O lithotripsy H/O hand surgery Family History Family History Father Cancer Lung cancer Mother ESRD (end stage renal disease) Social History Social History (Reviewed 12/16/24 @ 13:33 by Pierre Crystal Housing: House Are you a primary wound care specialist to a significant other at home: No Do you presently have visiting nurse or other home services: No Alcohol intake: former Comment: counts correct Patient Tobacco Use Status: Former Tobacco user Tobacco use type: Cigarette Years Smoked: 10 e-Cigarette/Vaping Use: Never Used Second Hand Smoke Exposure: No Advance Directives: No Advance Directives Information Provided: No Do you have a plan to hurt others: No Plan service: No Current occupational status: employed 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 Cognitive needs: No Hearing needs: Yes (Hearing aide) Vision needs: No Physical Exam Vital Signs: Vital Signs: Last Vital Signs Temp 97.8 F 04/08/25 18:38 Pulse 91 04/08/25 18:38 Resp 18 04/08/25 18:38 BP 118/76 04/08/25 18:38 Pulse Ox 97 04/08/25 18:38 O2 Del Method Room Air 04/08/25 18:38 BMI result Body Mass Index 29.1 Const: Other: Alert well-appearing Orientation/consciousness: patient oriented x3 Resp: Effort & Inspection: normal respiratory effort Cardio: Other: Normal peripheral perfusion Skin: Other: Warm dry no rash Neuro: General: patient oriented x3, gait normal, no focal motor deficits and CN's II-XI intact bilaterally Extrem: Other: No deformity noted, pain anteriorly, able to flex and extend from the elbow, can perform straight arm raise, having difficulty fully ranging and above the head, Psych: Other: Cooperative Course Course Course Narrative: This is an RME: Additional HPI, ROS, PE not included below will be deferred to primary provider. RME assessment and note performed by: Mounika Posadas PA-C This is a 89-[id number]-male, sensorineural hearing loss, nephrolithiasis, previous left shoulder surgery who presents to the ER with a complaint of left shoulder pain. Reports that he had surgery in November on his left shoulder which provided him with some relief. Reports that he slipped and put his left arm out and immediately had pain in his left shoulder. Plan: xray left shoulder Medications Administered Discontinued Medications Generic Name Dose Route Start Last Admin Trade Name Freq PRN Reason Stop Dose Admin Ketorolac Tromethamine 15 mg 04/08/25 20:45 04/08/25 20:52 Ketorolac Tromethamine 15 Mg/Ml Vial IM 04/08/25 20:46 15 mg ONCE ONE Administration Medical Decision Making Medical Decision Making [facility] Narrative: 59-year-old male with recent shoulder surgery in November, presents with left shoulder pain. Patient states he slipped and fell, catching himself on the ground with the his hands, now with left anterior her shoulder pain. The incident occurred 3 days ago. Patient is able to range the joint, although limited in ranging the arm fully above the head. Problem: Recent surgery History: Per patient I have considered the following differential diagnoses: Musculoskeletal strain/sprain, dislocation, fracture, contusion Plan: X-ray ordered from triage, there was no fracture or dislocation, the patient has a sprain, we will treat accordingly. He has a sling at home that he can use as needed. He also has pending Orthopedic follow up this week in 3 days. I have independently reviewed the following tests: Left shoulder x-ray:Findings: No acute fracture. No dislocation. Previous internal fixation of the left clavicle and humeral head surgical tacks. Degenerative changes of humeral head and of the acromioclavicular joint. No erosions. IMPRESSION: 1. No acute findings Differential Diagnosis Differential Diagnoses: The differential diagnosis associated with the presentation includes See medical decision making Admission/Observation Consideration of admission/observation: Escalation of care including admission/observation considered Not applicable Radiology Impression Discussion of test interpretation with radiology: I have reviewed the radiologist's reading. Discharge Plan Discharge Clinical Impression: Left shoulder strain Patient Disposition: Home, Self-Care Instructions: Muscle Strain (ED), Shoulder Immobilizer (ED) Additional Instructions: The x-ray reveals no fracture or dislocation. You do have significant arthritis or degenerative changes of the joint. See home care instructions. Use your sling as needed to help support the joint, this will also help to alleviate your discomfort. Use the ketorolac as needed, this is an anti-inflammatory take it with food. Use the methocarbamol as needed for further pain, this is a muscle relaxant, it will cause drowsiness, do not drive or operate machinery while taking this medication. Keep your pending follow up with your orthopedist this coming Thursday. Prescriptions: New ketorolac 10 mg tablet 10 mg PO Q6H PRN (Reason: pain) Qty: 20 0RF Rx Instructions: maximum total duration of 5 days from all oral, intranasal, or parenteral formulations. The patient received an intramuscular dose of Toradol here in the emergency room methocarbamol 750 mg tablet 1,500 mg PO Q8H PRN (Reason: pain, moderate) Qty: 24 0RF No Action ibuprofen 600 mg tablet 600 mg PO Q6H PRN (Reason: pain) Qty: 30 0RF oxycodone 5 mg capsule 5 mg PO BID PRN naproxen [Naprosyn] 500 mg tablet 500 mg PO BID Qty: 20 0RF Print Language: Telugu
[2025-04-08 18:38] VITALS: BP 118/76; PULSE 91; RESP 18; TEMP 36.6; O2SAT 97; BMI 29.1
--- OUTSIDE RECORDS SUMMARY | 2025-04-08 19:36 | XMS_ITS | Encounter Summary ---
Author Organization [employer] [facility] Address [address] [place] [address] [address] [place] [address] Care Team Providers Care College Recruiter Name Role Phone Unavailable Primary Care Provider Unavailabl e Encounter Details Date Type Department Care Team (Latest Contact Info) Description 05/03/2021 Abstract C CONVERSIONS Dental, Provider, DDS Social History Tobacco [...]
--- OUTSIDE RECORDS SUMMARY | 2025-04-08 19:36 | XMS_ITS | Encounter Summary ---
Author Organization [employer] [facility] Address [address] [place] [address] [address] [place] [address] Care Team Providers Care Rating Clerk Name Role Phone Unavailable Primary Care Provider Unavailabl e Encounter Details Date Type Department Care Team (Late st Contact Info) Description 07/31/2022 Abstract [facility] [address] [place], [place] [id number] Mani Saenz DDS [address] [place], [place] [id number] Social History Tobacco Use Types Packs/Day Years [...]
--- OUTSIDE RECORDS SUMMARY | 2025-04-08 19:36 | XMS_ITS | Clinical Summary ---
Author Organization [facility] [employer] Address [address] [place] [address] [address] [place] [address] Care Team Providers Care Lpn Home Health Name Role Phone Unavailable Primary Care Provider [...] FOBT 1966 Lipid Panel 1966 Sigmoidoscopy 1966 Disability Screening 1966 Alcohol/Substance Use Screening 1978 Tobacco Screening [...] COVID-19 Vaccine ( - 2023-2 5 season) 2025 Influenza Vaccine (#1) 2025 RSV Patients and Patients Aged 60 years [...] patient's age to complete this topic Meningococcal B Vaccine Aged Out No l onger eligible based on patient's age to complete [...]
[2025-04-08 21:20] VITALS: BP 118/76; PULSE 91; RESP 18; TEMP 36.6; O2SAT 97
== END 2025-04-08 21:21 | disposition home or self-care (01) ==
PROVIDERS: Emergency Provider Emergency Medicine; PCP Physician Assistant
DX: S46.912A Strain of unspecified muscle, fascia and tendon at shoulder and upper arm level, left arm, initial encounter (principal); W01.0XXA Fall on same level from slipping, tripping and stumbling without subsequent striking against object, initial encounter; Y93.9 Activity, unspecified; Y92.9 Unspecified place or not applicable; Y99.9 Unspecified external cause status; M25.512 Pain in left shoulder
CPT/HCPCS: 73030; 96372; 99283; 99284; J1885

== ENCOUNTER → 2025-04-08 18:39 | Outpatient (BNV) | payer OTHER, SELFPAY | PROVIDERS: PCP Physician Assistant; Visit Provider Specialist | DX: M25.512 Pain in left shoulder (principal) | CPT/HCPCS: 73030 ==

== ENCOUNTER 2025-04-13 14:23 | Outpatient (AMB) | payer OTHER, SELFPAY ==
--- NOTE | 2025-04-13 14:39 | MHC.OFFVIS ---
Intake Visit Reasons: OV-LT RTC 12/07/24 NE Intake Note: Fahad is a 59 year old right hand dominant male who presents today for a post op appointment s/p left shoulder rotator cuff tear 12/07/24 NE. At patient's last visit he was advised to continue to work on maximizing his range of motion with physical therapy. Patient hasn't heard from PT yet. he is having a lot of pain and stiffness. He notices that his ROM is limited. He was seen at the ED on 04/08/25 were he was given a sling and an injection which gave him mild relief. Allergies No Known Allergies (No Known Allergies*) Allergy (Verified 04/13/25 14:46) HPI HPI OV-LT RTC 12/07/24 NE: Details: Mr. Butterfield is a 59-year-old male who presents to the office today for follow-up status post left shoulder rotator cuff repair on 12-07-24. At his last appointment on 02/27/2025 he was instructed to attend physical therapy. He reports that he has not attended any physical therapy. There is a note in his chart on 03/08/2025 in which physical therapy tried to reach out to the patient to schedule an appointment but he stated he had no insurance at that time. He reports that he does have insurance at this time and is ready to attend. He was seen in the emergency department on 04/08/2025 for extreme left shoulder pain. He received a ketorolac IM injection as well as methocarbamol which office him some relief. He is looking to see if he can get a prescription for tramadol while in the office today. [facility] Medical History (Updated 04/09/25 @ 00:00 by Jaleesa Orozco) H/O nephrolithotomy with removal of calculi Surgical History (Updated 12/16/24 @ 13:57 by Pebbles Carey PA-C) H/O lithotripsy H/O hand surgery Family History Father Cancer Lung cancer Mother ESRD (end stage renal disease) Social History Housing: House Are you a primary client care representative to a significant other at home: No Do you presently have visiting nurse or other home services: No Alcohol intake: former Comment: counts correct Patient Tobacco Use Status: Former Tobacco user Tobacco use type: Cigarette Years Smoked: 10 e-Cigarette/Vaping Use: Never Used Second Hand Smoke Exposure: No service: No Current occupational status: employed 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 90 degrees abduction. 30 degrees external rotation. Able to reach back pocket. NVI. Psych Appearance: grossly normal Mental Status: mental status grossly normal Attitude: cooperative Assessment & Plan Assessment & Plan (1) Status post left rotator cuff repair: Code(s): Z98.890 - Other specified postprocedural states Category: Surgical Plan Mr. Butterfield is a 59-year-old male who presents to the office today for follow-up status post left shoulder rotator cuff repair on 12-07-24. At his last appointment on 02/27/2025 he was instructed to attend physical therapy. He reports that he has not attended any physical therapy. There is a note in his chart on 03/08/2025 in which physical therapy tried to reach out to the patient to schedule an appointment but he stated he had no insurance at that time. He reports that he does have insurance at this time and is ready to attend. He was seen in the emergency department on 04/08/2025 for extreme left shoulder pain. He received a ketorolac IM injection as well as methocarbamol which office him some relief. He is looking to see if he can get a prescription for tramadol while in the office today. While in the office today, I have reiterated the importance of physical therapy. I have placed a new order for physical therapy. I have declined his request for tramadol. I sent a prescription of Celebrex 200 mg to be taken p.o. b.i.d.. He will follow up in 6-8 weeks after physical therapy, sooner if needed. Medications: New celecoxib (Celebrex) 200 mg PO BID 60 caps 0RF 30 days Coding Level of Care Code Est Pt Level 3 (56003) Diagnoses Status post left rotator cuff repair Z98.890
--- OUTSIDE RECORDS SUMMARY | 2025-04-13 18:46 | XMS_ITS | Clinical Summary ---
Author Organization [facility] [employer] Address [address] [place] [address] 7 [place] [address] Care Team Providers Care Drying Machine Operator Package Yarns Name Role Phone Unavailable Primary Care Provider [...]
--- OUTSIDE RECORDS SUMMARY | 2025-04-13 18:46 | XMS_ITS | Encounter Summary ---
Author Organization [employer] [facility] Address [address] [place] [address] [address] [place] [address] Care Team Providers Care Cheese Supervisor Name Role Phone Unavailable Primary Care [...]
--- OUTSIDE RECORDS SUMMARY | 2025-04-13 18:46 | XMS_ITS | Encounter Summary ---
Author Organization [employer] [facility] Address [address] [place] [address] [address] [place] [address] Care Team Providers Care Credit Collections Specialist Name Role Phone Unavailable Primary Care Provider Unavailabl e Encounter Details Date Type Department Care Team (Late st Contact Info) Description 07/31/2022 Abstract [facility] ADULT DENTAL [address] [place], [place] [id number] Mani Saenz DDS [address] [place], [place] [phone] Social History Tobacco Use Types Packs/Day Years [...]
== END 2025-04-13 14:54 | disposition home or self-care (01) ==
PROVIDERS: PCP Physician Assistant; Visit Provider Physician Assistant
DX: Z47.89 Encounter for other orthopedic aftercare (principal); S46.011D Strain of muscle(s) and tendon(s) of the rotator cuff of right shoulder, subsequent encounter
CPT/HCPCS: 99213

== ENCOUNTER → 2025-04-13 14:23 | Outpatient (BNVA) | payer OTHER, SELFPAY | PROVIDERS: PCP Physician Assistant; Visit Provider Physician Assistant | DX: Z98.890 Other specified postprocedural states (principal) | CPT/HCPCS: 99212 ==

== ENCOUNTER 2025-05-25 10:59 | Outpatient (REF) | payer OTHER, SELFPAY ==
[2025-05-25 12:57] LABS: Prostate Specific Antigen 4.06 ng/mL (<0.05-4.0)
--- OUTSIDE RECORDS SUMMARY | 2025-05-25 13:26 | XMS_ITS | Encounter Summary ---
Author Organization [employer] [facility] Address [address] [place] [address] [address] [place] [address] Care Team Providers Care Legal Paraprofessional Name Role Phone Unavailable Primary Care Provider [...]
--- OUTSIDE RECORDS SUMMARY | 2025-05-25 13:26 | XMS_ITS | Encounter Summary ---
Author Organization [employer] [facility] Address [address] [place] [address] [address] [place] [address] Care Team Providers Care Life Specialist Name Role Phone Unavailable Primary Care Provider Unavailabl e Encounter Details Date Type Department Care Team (Late st Contact Info) Description 07/31/2022 Abstract [facility] ADULT DENTAL [address] [place], [place] [phone] Mani Saenz DDS [address] [place], [place] [phone] Social History Tobacco Use Types Packs/Day Years [...]
--- OUTSIDE RECORDS SUMMARY | 2025-05-25 13:26 | XMS_ITS | Clinical Summary ---
Author Organization [facility] [employer] Address [address] [place] [address] 7 [place] [address] Care Team Providers Care Clay Dry Press Operator Name Role Phone Unavailable Primary Care [...]
== END 2025-05-25 11:00 | disposition home or self-care (01) ==
LOC: HO.LAB 10:59
PROVIDERS: PCP Physician Assistant; Visit Provider Nurse Practitioner Family
DX: Z98.890 Other specified postprocedural states (principal); Z12.5 Encounter for screening for malignant neoplasm of prostate
CPT/HCPCS: 36415; 84153; 99212

== ENCOUNTER 2025-05-25 11:20 | Outpatient (AMB) | payer OTHER, SELFPAY ==
--- NOTE | 2025-05-25 11:40 | A.OFFVIS_ITS ---
Intake Visit Reasons: OV-LT RTC 12/07/24 NE Intake Note: Fahad is a 60 year old right hand dominant male who presents today for a follow up of his left rotator cuff repair done on 12/07/[address] Tang. At his last visit he was advised to continue with physical therapy. Patient reports that he is dong well, he continues to attend physical therapy and feels this is helping. Complaints of discomfort at times, and soreness after attending therapy. Allergies No Known Allergies (No Known Allergies*) Allergy (Verified 05/25/25 11:44) HPI HPI OV-LT RTC 12/07/24 NE: Details: Mr. Butterfield is a 60-year-old male who presents to the office today status post left shoulder rotator cuff repair performed on 12/07/[address] Tang. Patient has been attending physical therapy. He states everything has been going well and he has been making progress with strengthening in regards to the left shoulder. [facility] Medical History (Updated 04/09/25 @ 00:00 by Jaleesa Orozco) H/O nephrolithotomy with removal of calculi Surgical History H/O lithotripsy H/O hand surgery Family History Father Cancer Lung cancer Mother ESRD (end stage renal disease) Social History Housing: House Are you a primary clinical care manager to a significant other at home: No Do you presently have visiting nurse or other home services: No Alcohol intake: former Comment: counts correct Patient Tobacco Use Status: Former Tobacco user Tobacco use type: Cigarette Years Smoked: 10 e-Cigarette/Vaping Use: Never Used Second Hand Smoke Exposure: No service: No Current occupational status: employed 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 Able to reach T12. Pain with cross-body reach. NVI. Psych Appearance: grossly normal Mental Status: mental status grossly normal Attitude: cooperative Assessment & Plan Assessment & Plan (1) Status post left rotator cuff repair: Code(s): Z98.890 - Other specified postprocedural states Category: Surgical Plan Mr. Butterfield is a 60-year-old male who presents to the office today status post left shoulder rotator cuff repair performed on 12/07/[address] Tang. Patient has been attending physical therapy. He states everything has been going well and he has been making progress with strengthening in regards to the left shoulder. While the office today, we discussed progression with strength training in physical therapy and maximizing range of motion. Patient states that at this time he has been laid off from work in his waiting for a call back. However, he is only able to return back to work once he has been cleared for 100% return to duty. He does not feel that he is ready to do this at this time. He will continue over the next 8-12 weeks with physical therapy with the goal of returning him back to work. He will follow up with me in the next 8-12 weeks, sooner if needed. Of note, the patient requested evaluation for bilateral lower extremity numbness and tingling. He reports this began after surgery and was attributing this to the nerve block that was administered. I advised the patient that with the nerve block for the left shoulder this is not in correlation with lower extremity numbness and tingling. He will make an appointment with Dr. Trevino for evaluation. Coding Level of Care Code Est Pt Level 3 (60939) Diagnoses Status post left rotator cuff repair Z98.890
== END 2025-05-25 12:03 | disposition home or self-care (01) ==
LOC: HO.HOS 11:21
PROVIDERS: PCP Physician Assistant; Visit Provider Physician Assistant
DX: Z47.89 Encounter for other orthopedic aftercare (principal); S46.011D Strain of muscle(s) and tendon(s) of the rotator cuff of right shoulder, subsequent encounter
CPT/HCPCS: 99213

== ENCOUNTER 2025-06-08 08:25 | Outpatient (AMB) | payer OTHER, SELFPAY ==
--- NOTE | 2025-06-08 08:31 | A.OFFVIS_ITS ---
Intake Visit Reasons: follow up Intake Note: Patient is present for PSA F/U Urology Medication:NONE Antibiotic Allergy:NONE Blood Thinner:NONE Clinical Care Leader Required: No Allergies No Known Allergies (No Known Allergies*) Allergy (Verified 06/08/25 09:15) Medication List - Last Reconciled 06/08/25 by ALESHA Prescott No Known Home Meds HPI Comments Details: Fahad is a pleasant 60-year-old male patient of Dr. Sheffield. He has a past medical history of sensorineural hearing loss. He presents to the office t souleymane for follow-up. In discussion with the patient today he reports having recently followed up with his PCP and underwent surveillance monitoring of his PSA and it was noted to be elevated and recommendations were made for follow-up with Urology. Patient was last seen almost 2 years ago at which time recommendations were made for follow-up in 4 months however in discussion with the patient today he reports he has been feeling and doing well and therefore had not followed up. We did discussed the importance of following up as planned. Labs are as follows: TestosteroneL: 07/11 646 PSA: 06/10 3.4, 07/11 2.3, 06/12 3.6, 06/13 4.1 We did discussed potential causes of elevated PSA. He denies any known family history of prostate cancer. CHASE was offered however deferred. We did discussed obtaining redraw of PSA with no sex the night before, no caffeine morning of, and no heavy lifting 1-2 days prior. We did discuss in trend patient's previous PSAs in discussed variability over the last 3 years. Patient also with a previous history of nephrolithiasis. He currently denies any bothersome urinary issues. He denies urinary urgency, urinary frequency, incontinence, nocturia, hematuria, dysuria, foul smelling urine, changes to urinary stream, flank pain, fever, and or chills. He is happy with his current voiding parameters. In office urinalysis results reviewed with the patient today. All questions were answered. He otherwise offers no other issues or concerns at this time. [facility] Medical History H/O nephrolithotomy with removal of calculi Surgical History H/O lithotripsy H/O hand surgery Family History Father Cancer Lung cancer Mother ESRD (end stage renal disease) Social History Housing: House Are you a primary child care centre director to a significant other at home: No Do you presently have visiting nurse or other home services: No Alcohol intake: former Comment: counts correct Patient Tobacco Use Status: Former Tobacco user Tobacco use type: Cigarette Years Smoked: 10 e-Cigarette/Vaping Use: Never Used Second Hand Smoke Exposure: No service: No Current occupational status: employed 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 Cognitive needs: No Hearing needs: Yes (Hearing aide) Vision needs: No Review of Systems Const All systems reviewed & are unremarkable except as noted in HPI and below Physical Exam Const General: cooperative, healthy appearing, comfortable, no acute distress, well developed, alert and awake Orientation/consciousness: patient oriented x3 Limitations: other limitations (Hard of hearing) HEENT Head: Yes normal to inspection, Yes normocephalic and Yes atraumatic Ears: hearing grossly normal bilaterally Eyes General: appearance normal, both eyes and all related structures Neck Neck: Yes normal visual inspection and Yes trachea midline Chest Chest palpation & inspection: normal inspection of the chest Resp Effort & Inspection: normal respiratory effort and able to speak in complete sentences Cardio Rate: regular rate GI Inspection: Yes normal to inspection General: Yes no CVA tenderness Back/Spine/Pelvis Back: no CVA tenderness Skin General skin exam: no rashes or lesions noted Neuro General: patient oriented x3 Extrem General: Yes normal to inspection Psych Appearance: grossly normal and well kempt Mental Status: mental status grossly normal Speech and movement: Normal speech and movement present and Clear speech present Affect: normal affect Attitude: cooperative Thought process: Normal thought process present Thought content: Normal thought content present Insight: Fair insight present (Psych) Judgement: Fair judgement present (Psych) Results AMB Urinalysis, Automated UA Leukoctes 0 Rickie/uL Last Edit by JANNY Lua on 06/08/25 08:57 UA Nitrite Negative Last Edit by JANNY Lua on 06/08/25 08:57 UA Urobilinogen 0.2 mg/dL Last Edit by JANNY Lua on 06/08/25 08:5 7 UA Protein 15 mg/dL Last Edit by JANNY Lua on 06/08/25 08:57 UA pH 6.0 Last Edit by Jimbo Foster CCM on 06/08/25 08:57 UA Blood 0 David/uL Last Edit by Jimbo Foster CCM on 06/08/25 08:57 UA Specific [place] 1.030 Last Edit by Jimbo Foster [facility] on 06/08/25 08: 57 UA Ketone Negative Last Edit by Jimbo Foster CCM on 06/08/25 08:57 UA Bilirubin 0 mg/dL Last Edit by JANNY Lua on 06/08/25 08:57 UA Glucose 0 mg/dL Last Edit by Jimbo Foster [facility] on 06/08/25 08:57 Results Reviewed Results Reviewed: Laboratory Last Values Urine pH (Auto) 6.0 06/08/25 08:56 Specific [place]ce[place] (Auto) 1.030 06/08/25 08:56 Urine Protein (Auto) 15 mg/dL 06/08/25 08:56 Glucose (UA)(Auto) 0 mg/dL 06/08/25 08:56 Urine Ketones (Auto) Negative 06/08/25 08:56 Urine Blood (Auto) 0 David/uL 06/08/25 08:56 Urine Nitrite (Auto) Negative 06/08/25 08:56 Urine Bilirubin (Auto) 0 mg/dL 06/08/25 08:56 Urine Urobilinogen (Auto) 0.2 mg/dL 06/08/25 08:56 Leukocyte Esterase (Auto) 0 Rickie/uL 06/08/25 08:56 Assessment & Plan Assessment & Plan (1) Nephrolithiasis: Code(s): N20.0 - Calculus of kidney Category: Medical (2) Elevated PSA: Code(s): R97.20 - Elevated prostate specific antigen [PSA] Category: Medical Plan In office urinalysis results with the patient today; as noted above. Most recent PSA results reviewed with the patient today; as noted above. We did discussed potential causes of elevated PSA as well as further treatment options and risks and benefits of these treatment options. He currently denies any bothersome urinary issues or concerns. He reports be happy with current voiding parameters. Will obtain redraw of PSA with no sex the night before, no caffeine morning of, and no heavy lifting 1-2 days prior. CHASE was offered however deferred. We did discussed the importance of following up as planned. Will obtain retroperitoneal ultrasound for further assessment evaluation. Follow-up in 1-3 months with imaging, lab, and PVR; or sooner with any issues, concerns, and or questions. Orders: Orders AMB Urinalysis Automated Today Z13.9 - Encounter for screening, unspecified Prostate Specific Antigen 05/25/25 Z12.5 - Encounter for screening for malignant neoplasm of prostate US retroperitoneal comp Today N20.0 - Calculus of kidney, R97.20 - Elevated prostate specific antigen [PSA] PSA,Total (Free>4and<10) Today R97.20 - Elevated prostate specific antigen [PSA] Patient Instructions: The patient had an opportunity to ask questions regarding the treatment plan. All questions were answered. Physical exam, labs, and imaging were discussed and reviewed in detail. As well as risks, benefits, and discussion of treatment choices. No major barriers to understanding were identified. The patient expressed understanding and agreement with the above treatment plan. The patient was made aware they should contact our office by phone for worsening of their current condition, the appearance of new symptoms, or with any questions or concerns. Compliance is encouraged with any medications and follow up testing that is ordered. It is a privilege to be allowed the opportunity to participate in? your urological care.? Again, if you have any questions or concerns If you have any questions or concerns please do not hesitate to contact me. The office is [phone]. This note is constructed using voice recognition software. While every effort has been made to ensure accuracy zipper cutter errors may have been included. Yours sincerely, ALESHA Prescott Coding Level of Care Code Est Pt Level 3 (62974) Diagnoses Nephrolithiasis N20.0 Elevated PSA R97.20
--- OUTSIDE RECORDS SUMMARY | 2025-06-08 09:07 | XMS_ITS | Clinical Summary ---
Author Organization [facility] [employer] Address [address] [place] [address] [address]t [place] [address] Care Team Providers Care Robotics Engineer Name Role Phone Unavailable Primary Care Provider [...] 11/02/2021 05/03/2021, 02/03/2018 COVID-19 Vaccine ( - 2024-2 6 season) 2025 Influenza Vaccine (#1) 2025 RSV [...]
--- OUTSIDE RECORDS SUMMARY | 2025-06-08 09:07 | XMS_ITS | Encounter Summary ---
Author Organization [employer] [facility] Address [address] [place] [address] [address] [place] [address] Care Team Providers Care Men'S And Boys' Clothing Salesperson Name Role Phone Unavailable Primary Care Provider Unavailabl e Encounter Details Date Type Department Care Team (Late st Contact Info) Description 07/31/2022 Abstract [facility] ADULT DENTAL [address] [place], [place] [phone] Mani Saenz DDS [address] [place], [place] [phone] Social History Tobacco Use Types Packs/Day Years [...]
--- OUTSIDE RECORDS SUMMARY | 2025-06-08 09:07 | XMS_ITS | Encounter Summary ---
Author Organization [employer] [facility] Address [address] [place] [address] [address] [place] [address] Care Team Providers Care Fellmongery Worker Name Role Phone Unavailable Primary Care Provider [...]
== END 2025-06-08 09:15 | disposition home or self-care (01) ==
PROVIDERS: PCP Physician Assistant; Visit Provider Nurse Practitioner Family
DX: N20.0 Calculus of kidney (principal); R97.20 Elevated prostate specific antigen [PSA]; Z13.9 Encounter for screening, unspecified
CPT/HCPCS: 99213

== ENCOUNTER → 2025-06-08 08:25 | Outpatient (BNVA) | payer OTHER, SELFPAY | PROVIDERS: PCP Physician Assistant; Visit Provider Nurse Practitioner Family | DX: N20.0 Calculus of kidney (principal); R97.20 Elevated prostate specific antigen [PSA] | CPT/HCPCS: 81003; 99212 ==